=== PATIENT | female | born 1945 | race Caucasian/White ===

== ENCOUNTER 2017-05-22 14:07 | Inpatient (IN) | payer OTHER ==
[~2017-05-22] VITALS: Ht 172.7 cm; Wt 85.9 kg
[~2017-05-22 14:07] MED LIST: ALBUAER2 INH; ASCA500 PO; ATV1 PO; HYDR-5688 PO; MULT-506 PO; PROM25TA9 PO
[2017-05-22] MEDS ORDERED: SODIUM CHLORIDE 0.9% 1000ML 1,000 ML IV STA (14:46)
[2017-05-22] MEDS ORDERED: GUAIFENESIN 600 MG TABCR PO STA (14:46)
[2017-05-22] MEDS ORDERED: ALBUT/IPRATROP 3MG/0.5MG NEB 3 ML VIAL INH ONE ×2 (15:00→16:30)
[2017-05-22] MEDS ORDERED: SODIUM CHLORIDE 0.65% NA SOLN 45 ML (OCEAN) ONE (15:00)
[2017-05-22 15:13] VITALS: PULSE 88; O2SAT 94
[2017-05-22 15:15] LABS: BASO % 0.2 %; BASO ABS # 0.01 K/uL (0-0.2); EOS % 1.4 %; EOS ABS # 0.07 K/uL (0-0.5); HEMATOCRIT 46.9 % (37-47); LYMPH ABS # 1.75 K/uL (1.2-3.4); MEAN CELL VOLUME 89.2 fL (80-100); MEAN CORPUSCULAR HEMOGLOBIN 30.4 pg (25-34); MEAN CORPUSCULAR HGB CONC 34.1 g/dl (32-36); MEAN PLATELET VOLUME 8.3 fL (7.4-10.4); MONO % 10.9 %; MONO ABS # 0.53 K/uL (0.11-0.59); NEUT % 51.5 %; PLATELET COUNT 214 K/uL (130-400); RED CELL DISTRIBUTION WIDTH SD 45.7 fL (36.4-46.3); WHITE BLOOD COUNT 4.86 K/uL (4.8-10.8)
[2017-05-22 15:31] LABS: ALBUMIN 3.1 gm/dl (3.4-5.0); ALT/SGPT 20 U/L (12-78); AST/SGOT 14 U/L (15-37); BLOOD UREA NITROGEN 8 mg/dl (7-18); CALCIUM 8.4 mg/dl (8.5-10.1); CARBON DIOXIDE 29 mmol/L (21-32); CREATININE 0.62 mg/dl (0.60-1.20); GLUCOSE 110 mg/dl (70-99); LIPASE 143 U/L (73-393); POTASSIUM 4.1 mmol/L (3.5-5.1); SODIUM 127 mmol/L (136-145)
[2017-05-22 15:36] LABS: ALKALINE PHOSPHATASE 62 U/L (45-117); TOTAL PROTEIN 6.6 gm/dl (6.4-8.2)
--- NOTE | 2017-05-22 15:42 | DIAGNOSTIC IMAGING REPORT ---
CHEST ONE VIEW PORTABLE HISTORY: Atypical CHEST PAIN COMPARISON: Chest 11/13/2014. FINDINGS: The heart is mildly enlarged. Bibasilar interstitial thickening. Mild emphysema. No pneumothorax. There is a new 8 mm nodule within the right upper lobe. IMPRESSION: 1. Mild bibasilar thickening. No new focal lung consolidations to suggest pneumonia. 2. The heart is mildly enlarged. 3. Emphysema. 4. A new 8 mm nodule within the right upper lobe. Follow-up nonemergent chest CT is recommended to exclude a pulmonary lesion. Electronically signed by: Christiano Rebollar M.D. 05/22/2017 3:41 PM Dictated Date/Time: 05/22/2017 3:37 PM
[2017-05-22 15:55] LABS: INFLUENZA B ANTIGEN Neg for Influ B (NEG)
--- NOTE | 2017-05-22 16:25 | EMERGENCY ROOM VISIT NOTE ---
History Report prepared by Chelsea: Samantha Welch Under the Supervision of: Dr. Mk Luna M.D. First contact with patient: 14:44 Chief Complaint: SHORTNESS OF BREATH Stated Complaint: CANT BREATH Nursing Triage Summary: c/o coughing up green yellow sputum since mon, felt like she was getting better and then today she feels worse, has a "weird feeling" in her chest but no c/o pain pt also states she has been having a sinus infection History of Present Illness The patient is a 72 year old female who presents to the Emergency Room with complaints of worsening shortness of breathing that began a few days ago, secondary to the patient having intermittent cough, congestion, and yellow/ green sputum for the last 2 months. The patient states that the intensity of her symptoms reduces when she is sitting up. She denies wearing oxygen at home, but notes she occasionally uses her nebulizer at home. The patient states that she has been nauseous. She reports a history of COPD. asthma, and hypertension. The patient denies taking water pills or blood thinners. She notes that she smokes a pack of cigarettes a day. Source of History: patient Onset: few days ago Position: other (respiratory ) Quality: other (shortness of breath) Timing: worsening Associated Symptoms: + cough Note: Associated symptoms include: congestion and yellow/green sputum. Review of Systems See HPI for pertinent positives and negatives. A total of ten systems were reviewed and were otherwise negative. Past Medical & Surgical Medical Problems: (1) Asthma (2) COPD (chronic obstructive pulmonary disease) (3) Hypertension (4) Hyponatremia (5) Hypoxia Family History Patient reports no known family medical history. No pertinent family history. Social History Smoking Status: Current Every Day Smoker Smokeless Tobacco Use: Unknown Drug Use: none Marital Status: Housing Status: lives with family Occupation Status: retired Current/Historical Medications Scheduled Losartan Potassium (Cozaar), 50 MG PO DAILY Allergies Coded Allergies: Adhesives (Verified Allergy, Unknown, ITCHY, 05/22/17) Penicillins (Verified Allergy, Unknown, HIVES IN MOUTH, 05/22/17) Tramadol (Verified Allergy, Unknown, RASH MOUTH,, 05/22/17) Oxycodone (Verified Adverse Reaction, Unknown, NAUSEA,ANGRY REACTION, 05/22) Physical Exam Vital Signs Date Time Temp Pulse Resp B/P (MAP) Pulse Ox O2 Delivery O2 Flow Rate FiO2 05/22/17 20:38 103 23 149/82 05/22/17 19:13 108 05/22/17 19:03 123 24 133/77 91 Nasal Cannula 2.0 05/22/17 17:43 100 20 90 Room Air Nebulizer 05/22/17 17:00 98 23 126/79 92 Nebulizer 05/22/17 16:59 100 18 89 Nasal Cannula 1.0 05/22/17 16:08 95 22 168/94 91 Nasal Cannula 2.0 05/22/17 15:29 87 23 161/114 97 Nebulizer 05/22/17 15:13 88 16 94 Nasal Cannula 2.0 05/22/17 14:36 101 05/22/17 14:33 88 Room Air 05/22/17 14:33 97 20 151/114 93 Nasal Cannula 2.0 05/22/17 14:33 92 Nasal Cannula 2.0 05/22/17 14:08 37.0 105 20 189/95 90 Room Air Physical Exam GENERAL: Awake, alert, uncomfortable-appearing, dyspneic, in no distress HENT: Dry mucous membranes. Normocephalic, atraumatic. Oropharynx unremarkable. EYES: Normal conjunctiva. Sclera non-icteric. NECK: Supple. No nuchal rigidity. FROM. No JVD. RESPIRATORY: Diminished breath sounds throughout with scattered wheezes. CARDIAC: Regular rate, normal rhythm. Extremities warm and well perfused. Pulses equal. ABDOMEN: Soft, non-distended. No tenderness to palpation. No rebound or guarding. No masses. RECTAL: Deferred. MUSCULOSKELETAL: Chest examination reveals no tenderness. The back is symmetrical on inspection without obvious abnormality. There is no CVA tenderness to palpation. No joint edema. LOWER EXTREMITIES: Calves are equal size bilaterally and non-tender. No edema. No discoloration. NEURO: Normal sensorium. No sensory or motor deficits noted. SKIN: No rash or jaundice noted. Medical Decision & Procedures ER Provider Diagnostic Interpretation: Radiology results as stated below per my review and radiologist interpretation: CHEST ONE VIEW PORTABLE HISTORY: Atypical CHEST PAIN COMPARISON: Chest 11/13/2014. FINDINGS: The heart is mildly enlarged. Bibasilar interstitial thickening. Mild emphysema. No pneumothorax. There is a new 8 mm nodule within the right upper lobe. IMPRESSION: 1. Mild bibasilar thickening. No new focal lung consolidations to suggest pneumonia. 2. The heart is mildly enlarged. 3. Emphysema. 4. A new 8 mm nodule within the right upper lobe. Follow-up nonemergent chest CT is recommended to exclude a pulmonary lesion. Electronically signed by: Christiano Rebollar M.D. 05/22/2017 3:41 PM Dictated Date/Time: 05/22/2017 3:37 PM (CHEST FOR PE) ANGIO WITH CT DOSE: 469.22 mGy.cm HISTORY: Chest pain dyspnea TECHNIQUE: Multiaxial CT images of the chest were performed following the intravenous administration of contrast to evaluate the pulmonary arteries. Maximal intensity projection images were also obtained. A dose lowering technique was utilized adhering to the principles of ALARA. COMPARISON STUDY: 12/05/2014 FINDINGS: There is a normal caliber thoracic aorta with no evidence for dissection. There is no evidence for pulmonary embolus. No pleural effusions. No pneumothorax. The liver and spleen are unremarkable. No mediastinal or hilar lymphadenopathy. Lungs demonstrate mild basilar atelectatic change. There is a 9 mm nodular density within the lingula and additional bilobed nodular density somewhat medial and posterior to the 9 mm nodule measuring 7 mm. Nodular density previously described at the anterior lingula is not appreciated currently. Moderate emphysematous changes present. Chronic parenchymal and pleural reactive changes slightly variable but overall is similar. No significant mediastinal or hilar adenopathy. IMPRESSION: 1. No evidence for pulmonary embolus. 2. Unchanging 9 mm nodular density in the lingula. 3. New 7 mm nodule medial and slightly posterior to the previous described nodule. 4. The remaining components of the study remain stable. 5. A six-month follow-up is suggested. The above report was generated using voice recognition software. It may contain grammatical, syntax or spelling errors. Electronically signed by: López Ramirez M.D. 05/22/2017 4:53 PM Dictated Date/Time: 05/22/2017 4:46 PM Laboratory Results 05/22/17 15:02 Red Blood Count 5.26, Mean Corpuscular Volume 89.2, Mean Corpuscular Hemoglobin 30.4, Mean Corpuscular Hemoglobin Concent 34.1, Mean Platelet Volume 8.3, Neutrophils (%) (Auto) 51.5, Lymphocytes (%) (Auto) 36.0, Monocytes (%) (Auto) 10.9, Eosinophils (%) (Auto) 1.4, Basophils (%) (Auto) 0.2, Neutrophils # (Auto ) 2.50, Lymphocytes # (Auto) 1.75, Monocytes # (Auto) 0.53, Eosinophils # (Auto ) 0.07, Basophils # (Auto) 0.01 05/22/17 15:02 Test 05/22/17 15:02 05/22/17 15:15 05/22/17 15:27 05/22/17 18:12 White Blood Count 4.86 K/uL (4.8-10.8) Red Blood Count 5.26 M/uL (4.2-5.4) Hemoglobin 16.0 g/dL (12.0-16.0) Hematocrit 46.9 % (37-47) Mean Corpuscular Volume 89.2 fL (80-100) Mean Corpuscular Hemoglobin 30.4 pg (25-34) Mean Corpuscular Hemoglobin Concent 34.1 g/dl (32-36) Platelet Count 214 K/uL (130-400) Mean Platelet Volume 8.3 fL (7.4-10.4) Neutrophils (%) (Auto) 51.5 % Lymphocytes (%) (Auto) 36.0 % Monocytes (%) (Auto) 10.9 % Eosinophils (%) (Auto) 1.4 % Basophils (%) (Auto) 0.2 % Neutrophils # (Auto) 2.50 K/uL (1.4-6.5) Lymphocytes # (Auto) 1.75 K/uL (1.2-3.4) Monocytes # (Auto) 0.53 K/uL (0.11-0.59) Eosinophils # (Auto) 0.07 K/uL (0-0.5) Basophils # (Auto) 0.01 K/uL (0-0.2) RDW Standard Deviation 45.7 fL (36.4-46.3) RDW Coefficient of Variation 14.0 % (11.5-14.5) Immature Granulocyte % (Auto) 0.0 % Immature Granulocyte # (Auto) 0.00 K/uL (0.00-0.02) Anion Gap 8.0 mmol/L (3-11) Est Creatinine Clear Calc Drug Dose 95.6 ml/min Estimated GFR () 105.1 Estimated GFR (Non- 90.7 BUN/Creatinine Ratio 13.0 (10-20) Osmolality 268 mOsm/kg (280-300) Calcium Level 8.4 mg/dl (8.5-10.1) Total Bilirubin 0.2 mg/dl (0.2-1) Direct Bilirubin < 0.1 mg/dl (0-0.2) Aspartate Amino Transf (AST/SGOT) 14 U/L (15-37) Alanine Aminotransferase (ALT/SGPT) 20 U/L (12-78) Alkaline Phosphatase 62 U/L (45-117) Troponin I < 0.015 ng/ml (0-0.045) Pro-B-Type Natriuretic Peptide 364 pg/ml (0-900) Total Protein 6.6 gm/dl (6.4-8.2) Albumin 3.1 gm/dl (3.4-5.0) Lipase 143 U/L (73-393) Influenza Type A (RT-PCR) Neg for Influ A (NEG) Influenza Type A Antigen Neg for Influ A (NEG) Influenza Type B Antigen Neg for Influ B (NEG) Influenza Type B (RT-PCR) Neg for Influ B (NEG) Venous Blood pH 7.36 (7.36-7.41) Venous Blood Partial Pressure CO2 59 mmHg (38.0-50.0) Venous Blood Partial Pressure O2 32 mmHg Venous Blood HCO3 33 mmol/L Venous Blood Oxygen Saturation < 60.0 % Venous Blood Base Excess 5.2 mEq/L Urine Osmolality 192 mOms/kg (500-800) Laboratory results reviewed by me Medications Administered Medications (Trade) Dose Ordered Sig/Remi Route Start Time Stop Time Status Last Admin Dose Admin Sodium Chloride 1,000 ml @ 999 mls/hr Q1H1M STAT IV 05/22/17 14:46 05/22/17 15:46 DC 05/22/17 14:46 999 MLS/HR Albuterol/ Ipratropium (Duoneb) 12 ml ONE ONCE INH 05/22/17 15:00 05/22/17 15:01 DC 05/22/17 15:13 12 ML Prednisone (PredniSONE TAB) 60 mg NOW STAT PO 05/22/17 14:46 05/22/17 14:52 DC 05/22/17 15:40 60 MG Sodium Chloride ([place] Nasal [place]) 2 sprays NOW ONCE NA 05/22/17 15:00 05/22/17 15:01 DC 05/22/17 16:14 2 SPRAYS Guaifenesin (Mucinex Contr Rel Tab) 600 mg NOW STAT PO 05/22/17 14:46 05/22/17 14:52 DC 05/22/17 15:40 600 MG Albuterol/ Ipratropium (Duoneb) 12 ml ONE ONCE INH 05/22/17 16:30 05/22/17 16:31 DC 05/22/17 16:59 12 ML Azithromycin (Zithromax Tab) 500 mg NOW STAT PO 05/22/17 18:51 05/22/17 18:53 DC 05/22/17 19:03 500 MG ECG Per My Interpretation Indication: SOB/dyspnea Rate (beats per minute): 88 Rhythm: sinus rhythm (with fusion complexes) Findings: no acute ischemic change, other (normal axis) ED Course 1446: The patient was evaluated in room B6. A complete history and physical exam was performed. 1617: I reevaluated the patient, who had improved air movement but was still tight. Will repeat nebulizer treatment and will order a CT scan to evaluate her low sodium. 1904: I discussed the patient with Dr. Joseph [facility] - he will evaluate the patient for further treatment. 1914: I reevaluated the patient, who was resting. I discussed some test findings. The patient verbalized complete agreement of the treatment plan. Medical Decision I reviewed the patient's past medical history, medications, and the nursing notes as described above. Differential diagnosis: Etiologies such as infections, reactive airway disease, pneumonia, pneumothorax , COPD, CHF, cardiac ischemia, pulmonary embolism, musculoskeletal, gastrointestinal, as well as others were entertained. The patient is a 72-year-old woman with a past medical history of COPD who presents emergency Department with worsening cough congestion per hpi. Arrival the patient is uncomfortable and dyspneic reporting the need to sit up to breathe, however in no acute distress, afebrile stable vital signs. On exam the patient has diminished breath sounds throughout with scattered wheezes and rhonchi. EKG unremarkable. Chest x-ray negative for pneumonia although a pulmonary nodule. WBC within normal limits. Sodium 127 and CO2 57 however without any recent diabetes for comparison. Serum and urine OSM. Given the patient's pulmonary nodule and hyponatremia in the setting of the patient smoking history CT PE was done to rule out malignancy as well as PE, and was negative for both. Patient reassessed after 2 hours of continuous nebs with improvement in her air movement however still appears mildly dyspneic sitting up in bed for comfort. Thus given the patient's persistent dyspnea as well as oxygen requirement which is different from her baseline will admit the patient for a COPD exacerbation. Will give azithromycin given her productive sputum. The case was discussed with Dr. Joseph, who will admit the patient for further management. Medication Reconcilliation Current Medication List: was personally reviewed by me Blood Pressure Screening Patient's blood pressure: Normal blood pressure Blood pressure disposition: Did not require urgent referral Consults Time Called: 1901 Consulting Physician: ANTHONY Cervantes Returned Call: 1904 I discussed the patient with ANTHONY Cervantes - he will evaluate the patient for further treatment. Impression Primary Impression: COPD exacerbation Scribe Attestation The scribe's documentation has been prepared under my direction and personally reviewed by me in its entirety. I confirm that the note above accurately reflects all work, treatment, procedures, and medical decision making performed by me. Departure Information Dispostion Being Evaluated By Hospitalist Referrals No Doctor, Assigned (PCP) Forms HOME CARE DOCUMENTATION FORM, IMPORTANT VISIT INFORMATION Patient Instructions My [facility]
--- NOTE | 2017-05-22 16:54 | DIAGNOSTIC IMAGING REPORT ---
(CHEST FOR PE) ANGIO WITH CT DOSE: 469.22 mGy.cm HISTORY: Chest pain dyspnea TECHNIQUE: Multiaxial CT images of the chest were performed following the intravenous administration of contrast to evaluate the pulmonary arteries. Maximal intensity projection images were also obtained. A dose lowering technique was utilized adhering to the principles of ALARA. COMPARISON STUDY: 12/05/2014 FINDINGS: There is a normal caliber thoracic aorta with no evidence for dissection. There is no evidence for pulmonary embolus. No pleural effusions. No pneumothorax. The liver and spleen are unremarkable. No mediastinal or hilar lymphadenopathy. Lungs demonstrate mild basilar atelectatic change. There is a 9 mm nodular density within the lingula and additional bilobed nodular density somewhat medial and posterior to the 9 mm nodule measuring 7 mm. Nodular density previously described at the anterior lingula is not appreciated currently. Moderate emphysematous changes present. Chronic parenchymal and pleural reactive changes slightly variable but overall is similar. No significant mediastinal or hilar adenopathy. IMPRESSION: 1. No evidence for pulmonary embolus. 2. Unchanging 9 mm nodular density in the lingula. 3. New 7 mm nodule medial and slightly posterior to the previous described nodule. 4. The remaining components of the study remain stable. 5. A six-month follow-up is suggested. The above report was generated using voice recognition software. It may contain grammatical, syntax or spelling errors. Electronically signed by: López Ramirez M.D. 05/22/2017 4:53 PM Dictated Date/Time: 05/22/2017 4:46 PM
[2017-05-22 16:59] VITALS: PULSE 100; O2SAT 89
[2017-05-22] MEDS ORDERED: LOSA50TA6 PO (16:59)
[2017-05-22 18:32] LABS: INFLUENZA A PCR Neg for Influ A (NEG); INFLUENZA B PCR Neg for Influ B (NEG)
[2017-05-22] MEDS ORDERED: AZITHROMYCIN 250 MG TAB PO STA (18:51)
[2017-05-22] MEDS ORDERED: ONDANSETRON INJ 2 MG/ML 2 ML VIAL IV PRN (19:45)
[2017-05-22] MEDS ORDERED: ACETAMINOPHEN 325 MG TAB PO PRN (19:45)
--- NOTE | 2017-05-22 19:48 | History and Physical ---
History & Physical Date & Time of Service: May 22, 2017 at 19:47 Chief Complaint: Cant Breath Primary Care Physician: No Doctor, Assigned History of Present Illness Source: patient, hospital records The patient is a 72-year-old female presents emergency department with worsening shortness of breath over the past few days. She has had an intermittent cough productive of yellow-green sputum, chest congestion and wheezing over the past 2 months. She has a nebulizer that she occasionally uses at home due to her history of COPD with asthma. She smokes 1 pack per day. She does have a history of back surgery, and has intermittently worsening back pain when her cough is severe. Past Medical/Surgical History Medical Problems: (1) Asthma Status: Chronic (2) COPD (chronic obstructive pulmonary disease) Status: Chronic (3) Hypertension Status: Chronic Family History Patient reports no known family medical history. Social History Smoking Status: Current Every Day Smoker Smokeless Tobacco Use: No Alcohol Use: none Drug Use: none Marital Status: Occupational Status: retired Immunizations History of Influenza Vaccine: Unknown History of Tetanus Vaccine?: Unknown History of Pneumococcal: Unknown History of Hepatitis B Vaccine: Unknown Multi-Drug Resistant Organisms History of MDRO: No Allergies Coded Allergies: Adhesives (Verified Allergy, Unknown, ITCHY, 05/22/17) Penicillins (Verified Allergy, Unknown, HIVES IN MOUTH, 05/22/17) Tramadol (Verified Allergy, Unknown, RASH MOUTH,, 05/22/17) Oxycodone (Verified Adverse Reaction, Unknown, NAUSEA,ANGRY REACTION, 05/22) Home Medications Scheduled Losartan Potassium (Cozaar), 50 MG PO DAILY Review of Systems The patient denies chest pain, palpitations, lower extremity swelling, sore throat, fevers, chills, sweats, vomiting, diarrhea , constipation, abdominal pain, pelvic pain, blood in urine or stool, dysuria, urinary frequency or urgency, lightheadedness , dizziness, headache, memory loss, loss of consciousness, rash, abnormal bruising or bleeding, imbalance, focal or generalized weakness, numbness or tingling in arms or legs, generalized arthralgias or myalgias, neck pain, or night sweats. The review of systems is otherwise negative other than for that already noted above, and at least 10 systems have been reviewed. Physical Exam Vital Signs Date Time Temp Pulse Resp B/P (MAP) Pulse Ox O2 Delivery O2 Flow Rate FiO2 05/22/17 19:13 108 05/22/17 19:03 123 24 133/77 91 Nasal Cannula 2.0 05/22/17 17:43 100 20 90 Room Air Nebulizer 05/22/17 17:00 98 23 126/79 92 Nebulizer 05/22/17 16:59 100 18 89 Nasal Cannula 1.0 05/22/17 16:08 95 22 168/94 91 Nasal Cannula 2.0 05/22/17 15:29 87 23 161/114 97 Nebulizer 05/22/17 15:13 88 16 94 Nasal Cannula 2.0 05/22/17 14:36 101 05/22/17 14:33 88 Room Air 05/22/17 14:33 97 20 151/114 93 Nasal Cannula 2.0 05/22/17 14:33 92 Nasal Cannula 2.0 05/22/17 14:08 37.0 105 20 189/95 90 Room Air The patient is awake, alert and oriented 3, well developed and well nourished, normocephalic and atraumatic, lying in bed and in no acute distress except during severe harsh cough. HEENT--PERRL, EOMI, mucous membranes and oropharynx dry. Neck--supple. No JVD. No bruits. Thyroid normal, trachea midline, no adenopathy. Heart--normal S1 and S2. No murmurs, rubs or gallops. Lungs--coarse sounds with wheezes bilaterally, no respiratory distress, no accessory muscle use. Abdomen--normal bowel sounds and soft. Nontender. Nondistended, no hernias or masses, no organomegaly. Extremities--no cyanosis or clubbing. No edema. There are good distal pulses b/ l. Dermatologic--normal skin turgor, normal color, no abnormal lymph nodes, no rash. Neurologic--cranial nerves II through XII grossly intact. Rheumatologic--normal range of motion. Psychiatric--normal affect. Diagnostics Laboratory Results Results Past 24 Hours Test 05/22/17 15:02 05/22/17 15:15 05/22/17 15:27 05/22/17 18:12 Range/Units White Blood Count 4.86 4.8-10.8 K/uL Red Blood Count 5.26 4.2-5.4 M/uL Hemoglobin 16.0 12.0-16.0 g/dL Hematocrit 46.9 37-47 % Mean Corpuscular Volume 89.2 80-100 fL Mean Corpuscular Hemoglobin 30.4 25-34 pg Mean Corpuscular Hemoglobin Concent 34.1 32-36 g/dl Platelet Count 214 130-400 K/uL Mean Platelet Volume 8.3 7.4-10.4 fL Neutrophils (%) (Auto) 51.5 % Lymphocytes (%) (Auto) 36.0 % Monocytes (%) (Auto) 10.9 % Eosinophils (%) (Auto) 1.4 % Basophils (%) (Auto) 0.2 % Neutrophils # (Auto) 2.50 1.4-6.5 K/uL Lymphocytes # (Auto) 1.75 1.2-3.4 K/uL Monocytes # (Auto) 0.53 0.11-0.59 K/uL Eosinophils # (Auto) 0.07 0-0.5 K/uL Basophils # (Auto) 0.01 0-0.2 K/uL RDW Standard Deviation 45.7 36.4-46.3 fL RDW Coefficient of Variation 14.0 11.5-14.5 % Immature Granulocyte % (Auto) 0.0 % Immature Granulocyte # (Auto) 0.00 0.00-0.02 K/uL Sodium Level 127 136-145 mmol/L Potassium Level 4.1 3.5-5.1 mmol/L Chloride Level 90 98-107 mmol/L Carbon Dioxide Level 29 21-32 mmol/L Anion Gap 8.0 3-11 mmol/L Blood Urea Nitrogen 8 7-18 mg/dl Creatinine 0.62 0.60-1.20 mg/dl Est Creatinine Clear Calc Drug Dose 95.6 ml/min Estimated GFR () 105.1 Estimated GFR (Non- 90.7 BUN/Creatinine Ratio 13.0 10-20 Random Glucose 110 70-99 mg/dl Osmolality 268 280-300 mOsm/kg Calcium Level 8.4 8.5-10.1 mg/dl Total Bilirubin 0.2 0.2-1 mg/dl Direct Bilirubin < 0.1 0-0.2 mg/dl Aspartate Amino Transf (AST/SGOT) 14 15-37 U/L Alanine Aminotransferase (ALT/SGPT) 20 12-78 U/L Alkaline Phosphatase 62 45-117 U/L Troponin I < 0.015 0-0.045 ng/ml Pro-B-Type Natriuretic Peptide 364 0-900 pg/ml Total Protein 6.6 6.4-8.2 gm/dl Albumin 3.1 3.4-5.0 gm/dl Lipase 143 73-393 U/L Influenza Type A (RT-PCR) Neg for Influ A NEG Influenza Type A Antigen Neg for Influ A NEG Influenza Type B Antigen Neg for Influ B NEG Influenza Type B (RT-PCR) Neg for Influ B NEG Venous Blood pH 7.36 7.36-7.41 Venous Blood Partial Pressure CO2 59 38.0-50.0 mmHg Venous Blood Partial Pressure O2 32 mmHg Venous Blood HCO3 33 mmol/L Venous Blood Oxygen Saturation < 60.0 % Venous Blood Base Excess 5.2 mEq/L Urine Osmolality 192 500-800 mOms/kg Diagnostic Radiology Patient Name: BUSHRA LARA Unit Number: [id number] Dictated: 05/22/171536 Transcribed: 05/22/171536 Pradama Printed Date/Time: [~ rep prt dt]/[~ rep prt tm] [~ rep ct labl] - [~ rep ct ivnm] [facility] [place] [address] Dictated: 05/22/171536 Transcribed: 05/22/171536 [employer] Printed Date/Time: [~ rep prt dt]/[~ rep prt tm] [~ rep ct labl] - [~ rep ct ivnm] CHEST ONE VIEW PORTABLE HISTORY: Atypical CHEST PAIN COMPARISON: Chest 11/13/2014. FINDINGS: The heart is mildly enlarged. Bibasilar interstitial thickening. Mild emphysema. No pneumothorax. There is a new 8 mm nodule within the right upper lobe. IMPRESSION: 1. Mild bibasilar thickening. No new focal lung consolidations to suggest pneumonia. 2. The heart is mildly enlarged. 3. Emphysema. 4. A new 8 mm nodule within the right upper lobe. Follow-up nonemergent chest CT is recommended to exclude a pulmonary lesion. Electronically signed by: Christiano Rebollar M.D. 05/22/2017 3:41 PM Dictated Date/Time: 05/22/2017 3:37 PM The status of this report is Signed. Draft = Not yet reviewed or approved by Radiologist. Signed = Reviewed and approved by Radiologist. <AttendingPhy></AttendingPhy> <FamilyPhy>Camron Araujo PA-C</FamilyPhy> < PrimaryPhy>No Doctor, Assigned</PrimaryPhy> <UnitNumber>[id number]</UnitNumber> <VisitNumber>[id number]</VisitNumber> <PatientName>BUSHRA LARA</ PatientName> <DateOfBirth>1945</DateOfBirth> <Location>C.EDB</Location> < ServiceDate>05/22/17</ServiceDate> <MNE>ESINDI</MNE> <OrderingPhy>Mk Luna M.D.</OrderingPhy> <OrderingPhyMNE>f rep ord dr carney</OrderingPhyMNE> <DictatingPhyMNE>f rep dict dr carney</DictatingPhyMNE> <CCListMNE>f rep ct mne</ CCListMNE> <AdmittingPhyMNE>f pt admit dr carney</AdmittingPhyMNE> <AttendingPhyMNE >f pt attend dr carney</AttendingPhyMNE> <ConsultingPhyMNE>f pt consult dr carney</ConsultingPhyMNE> <FamilyPhyMNE>f pt fam dr carney</FamilyPhyMNE> <OtherPhyMNE>f pt other dr carney</OtherPhyMNE> < PrimaryPhyMNE>f pt prim care dr carney</PrimaryPhyMNE> <ReferringPhyMNE>f pt referring dr carney</ReferringPhyMNE> Patient Name: BUSHRA LARA Unit Number: [id number] Dictated: 05/22/171645 Transcribed: 05/22/171645 MS Printed Date/Time: [~ rep prt dt]/[~ rep prt tm] [~ rep ct labl] - [~ rep ct ivnm] [facility] [place] [address] Dictated: 05/22/171645 Transcribed: 05/22/17 164 MS Printed Date/Time: [~ rep prt dt]/[~ rep prt tm] [~ rep ct labl] - [~ rep ct ivnm] [~ rep ct add3]] (CHEST FOR PE) ANGIO WITH CT DOSE: 469.22 mGy.cm HISTORY: Chest pain dyspnea TECHNIQUE: Multiaxial CT images of the chest were performed following the intravenous administration of contrast to evaluate the pulmonary arteries. Maximal intensity projection images were also obtained. A dose lowering technique was utilized adhering to the principles of ALARA. COMPARISON STUDY: 12/05/2014 FINDINGS: There is a normal caliber thoracic aorta with no evidence for dissection. There is no evidence for pulmonary embolus. No pleural effusions. No pneumothorax. The liver and spleen are unremarkable. No mediastinal or hilar lymphadenopathy. Lungs demonstrate mild basilar atelectatic change. There is a 9 mm nodular density within the lingula and additional bilobed nodular density somewhat medial and posterior to the 9 mm nodule measuring 7 mm. Nodular density previously described at the anterior lingula is not appreciated currently. Moderate emphysematous changes present. Chronic parenchymal and pleural reactive changes slightly variable but overall is similar. No significant mediastinal or hilar adenopathy. IMPRESSION: 1. No evidence for pulmonary embolus. 2. Unchanging 9 mm nodular density in the lingula. 3. New 7 mm nodule medial and slightly posterior to the previous described nodule. 4. The remaining components of the study remain stable. 5. A six-month follow-up is suggested. The above report was generated using voice recognition software. It may contain grammatical, syntax or spelling errors. Electronically signed by: López Ramirez M.D. 05/22/2017 4:53 PM Dictated Date/Time: 05/22/2017 4:46 PM The status of this report is Signed. Draft = Not yet reviewed or approved by Radiologist. Signed = Reviewed and approved by Radiologist. <AttendingPhy></AttendingPhy> <FamilyPhy>No Doctor, Assigned</FamilyPhy> < PrimaryPhy>No Doctor, Assigned</PrimaryPhy> <UnitNumber>[id number]</UnitNumber> <VisitNumber>[id number]</VisitNumber> <PatientName>BUSHRA LARA Madisyn</ PatientName> <DateOfBirth>1945</DateOfBirth> <Location>C.EDB</Location> < ServiceDate>05/22/17</ServiceDate> <MNE>ESINDI</MNE> <OrderingPhy>Mk Luna M.D.</OrderingPhy> <OrderingPhyMNE>f rep ord dr carney</OrderingPhyMNE> <DictatingPhyMNE>f rep dict dr carney</DictatingPhyMNE> <CCListMNE>f rep ct kennae</ CCListMNE> <AdmittingPhyMNE>f pt admit dr carney</AdmittingPhyMNE> <AttendingPhyMNE >f pt attend dr carney</AttendingPhyMNE> <ConsultingPhyMNE>f pt consult dr carney</ConsultingPhyMNE> <FamilyPhyMNE>f pt fam dr carney</FamilyPhyMNE> <OtherPhyMNE>f pt other dr carney</OtherPhyMNE> < PrimaryPhyMNE>f pt prim care dr carney</PrimaryPhyMNE> <ReferringPhyMNE>f pt referring dr carney</ReferringPhyMNE> EKG EKG shows NSR at 88 bpm, there are no acute ST-T changes Impression Assessment and Plan Acute on chronic bronchitis with hypoxia_ admit to telemetry due to associated sinus tachycardia Ceftriaxone 1 g IV daily Levofloxacin 500 mg IV every 24 hours Solu-Medrol 40 mg IV every 8 hours Guaifenesin extended release 600 mg by mouth twice a day Xopenex/Atovent nebs q6hwa and q2h prn Nasal cannula 2 L of oxygen titrating to keep pulse ox greater than or equal to 92%. Sputum Gram stain and culture Tessalon Perles 100 mg by mouth 3 times a day when necessary to somewhat decrease the intensity of the cough but not suppress it. Pulmonary nodules-- Old 9 mm nodular density in the lingula New 7 mm nodular density medial slightly posterior to the above nodule. Tobacco cessation Repeat CT in 6 months Consider enrollment into pulmonary nodule program Tobacco use disorder-- Counseling given/needed next Hypertension-- Continue losartan 50 mg daily Level of Care Telemetry Advanced Directives Existing Advance Directive: No Existing Living Will: No Existing Power of Audit Officer: No Resuscitation Status FULL RESUSCITATION VTE Prophylaxis VTE Risk Assessment Done? Y/N: Yes Risk Level: Low Given or contraindicated: SCD's Social Service Consult None Apply
[2017-05-22] MEDS ORDERED: LEVALBUTEROL/IPRATROPIUM NEB INH SCH (21:00)
[2017-05-22 22:17] VITALS: BP 156/87; PULSE 104; TEMP 37; O2SAT 92; Ht 172.7 cm; Wt 85.9 kg
[2017-05-22] MEDS ORDERED: CEFTRIAXONE SOD INJ 1 GM in DEXTROSE 5% ADD-VANTAGE 50ML 50 ML IV SCH (23:00)
[2017-05-22] MEDS: BENZONATATE 100MG CAP PO PRN (23:43)
[2017-05-22] MEDS: GUAIFENESIN 600 MG TABCR PO SCH (23:43)
[2017-05-23] VITALS (11 sets, daily range): BP systolic 151–186; BP diastolic 78–102; PULSE 84–106; TEMP 36.6–37.2; O2SAT 90–98
[2017-05-23] MEDS: LEVOFLOXACIN / D5W 500 MG in PREMIXED IN D5W 100 ML IV SCH (00:20)
[2017-05-23] MEDS: METHYLPREDNISOLONE IV 40 MG in SYRINGE 0 ML IV SCH ×3 (00:20→17:18)
[2017-05-23] MEDS: IPRATROPIUM BROMIDE NEB SOLN 0.02% 2.5 ML VIAL INH SCH ×4 (02:12→20:12)
[2017-05-23] MEDS: LEVALBUTEROL 1.25MG/0.5ML NEB INH SCH ×4 (02:12→20:12)
[2017-05-23] MEDS ORDERED: BENZONATATE 100MG CAP PO STA (04:52)
[2017-05-23] MEDS: BENZONATATE 100MG CAP PO PRN ×2 (04:57→21:21)
[2017-05-23] MEDS ORDERED: NURSING VERBAL MED ORDER ONE (05:00)
[2017-05-23] MEDS: NICOTINE 14 MG/24 HR TDSY TD SCH (06:14)
[2017-05-23 07:11] LABS: BASO % 0.1 %; BASO ABS # 0.01 K/uL (0-0.2); HEMATOCRIT 43.7 % (37-47); HEMOGLOBIN 15.1 g/dL (12.0-16.0); IG# 0.02 K/uL (0.00-0.02); LYMPH % 12.7 %; MEAN CELL VOLUME 88.6 fL (80-100); MEAN CORPUSCULAR HEMOGLOBIN 30.6 pg (25-34); MEAN CORPUSCULAR HGB CONC 34.6 g/dl (32-36); MEAN PLATELET VOLUME 8.5 fL (7.4-10.4); MONO % 2.5 %; MONO ABS # 0.18 K/uL (0.11-0.59); NEUT % 84.4 %; NEUT ABS # 5.98 K/uL (1.4-6.5); PLATELET COUNT 244 K/uL (130-400); RED CELL DISTRIBUTION WIDTH CV 14.1 % (11.5-14.5); RED CELL DISTRIBUTION WIDTH SD 45.7 fL (36.4-46.3); WHITE BLOOD COUNT 7.09 K/uL (4.8-10.8)
[2017-05-23 07:44] LABS: CALCIUM 8.5 mg/dl (8.5-10.1); CREATININE 0.66 mg/dl (0.60-1.20); POTASSIUM 4.4 mmol/L (3.5-5.1)
[2017-05-23] MEDS: GUAIFENESIN 600 MG TABCR PO SCH ×2 (08:04→21:19)
[2017-05-23] MEDS: LOSARTAN POTASSIUM 50 MG TAB PO SCH (08:04)
--- NOTE | 2017-05-23 13:21 | Hospitalist Progress Note ---
Hospitalist Progress Note Date of Service May 23, 2017. (Arabella Hogue PA-C) Subjective Pt evaluation today including: conversation w/ patient, physical exam, chart review, lab review, review of studies, review of inpatient medication list Patient seen and evaluated. No acute events overnight. Some sinus tachy but mostly NSR on monitor Reporting poor sleep due to coughing spells. Intermittently productive but largely dry. States she feels a little hyper on breathing treatments and steroids but voices no other complaints. Constitutional: No fever, No chills Respiratory: + cough, + sputum, + shortness of breath, No wheezing Cardiovascular: No chest pain Abdomen: No pain, No nausea, No vomiting, No diarrhea, No constipation Musculoskeletal: No swelling, No calf pain Female : No dysuria Heme: No abnormal bleeding/bruising Skin: + rash (Arabella Hogue, CEFERINOC) Medications Current Inpatient Medications Medications (Trade) Dose Ordered Sig/Remi Route Start Time Stop Time Status Last Admin Dose Admin Acetaminophen (Tylenol Tab) 650 mg Q4H PRN PO 05/22/17 19:45 06/21/17 19:44 Losartan Potassium (coZAAR TAB) 50 mg DAILY PO 05/23/17 09:00 06/22/17 08:59 05/23/17 08:04 50 MG Ondansetron HCl (Zofran Inj) 4 mg Q6H PRN IV 05/22/17 19:45 06/21/17 19:44 Methylprednisolone Sodium Succinate 40 mg/Syringe 0.64 ml @ 1.5 mls/min Q8H IV 05/23/17 00:00 06/22/17 00:00 05/23/17 08:04 1.5 MLS/MIN Levofloxacin 500 mg/Prmx 100 ml @ 100 mls/hr Q24H IV 05/23/17 00:00 05/30/17 00:00 05/23/17 00:20 100 MLS/HR Benzonatate (Tessalon Perles Cap) 100 mg TID PRN PO 05/22/17 21:00 06/21/17 20:59 05/22/17 23:43 100 MG Ipratropium [place] (Atrovent 0.02% 0.5MG/2.5ML Neb) 0.5 mg Q6R INH 05/23/17 03:00 06/22/17 02:59 05/23/17 06:58 0.5 MG Levalbuterol (Xopenex 1.25MG/ 0.5ML Neb) 1.25 mg Q6R INH 05/23/17 03:00 06/22/17 02:59 05/23/17 06:58 1.25 MG Nicotine (Nicoderm Cq 14MG Patch) 1 patch QAM TD 05/23/17 09:00 06/22/17 08:59 05/23/17 06:14 1 PATCH Miscellaneous (Remove Nicoderm Patch) 1 ea HS N/A 05/23/17 21:00 06/22/17 20:59 Guaifenesin (Mucinex Contr Rel Tab) 1,200 mg Q12 PO 05/23/17 21:00 06/21/17 22:14 UNV Heparin Sodium (Porcine) (Heparin Sq 5000 Unit/0.5ml) 5,000 unit Q8 SQ 05/23/17 14:00 06/22/17 13:59 UNV (Arabella Hogue, CEFERINOC) Objective Vital Signs Date Time Temp Pulse Resp B/P (MAP) Pulse Ox O2 Delivery O2 Flow Rate FiO2 05/23/17 12:00 Nasal Cannula 2.0 05/23/17 11:50 37.2 106 18 186/99 (128) 91 Room Air 05/23/17 08:00 Nasal Cannula 2.0 05/23/17 07:30 36.8 98 18 174/96 (122) 93 05/23/17 06:59 101 18 95 Nasal Cannula 3.0 05/23/17 04:07 36.9 100 20 158/87 (110) 90 Nasal Cannula 3.0 05/23/17 04:00 Nasal Cannula 2.0 05/23/17 02:12 84 18 98 Nasal Cannula 3.0 05/23/17 00:05 37.0 99 20 151/78 (102) 92 Nasal Cannula 2.0 05/23/17 00:00 Nasal Cannula 2.0 05/22/17 22:17 37.0 104 20 156/87 Nasal Cannula 2.0 05/22/17 22:17 37.0 104 20 156/87 (110) 92 Nasal Cannula 2.0 05/22/17 22:03 100 22 141/75 92 05/22/17 20:38 103 23 149/82 05/22/17 19:13 108 05/22/17 19:03 123 24 133/77 91 Nasal Cannula 2.0 05/22/17 17:43 100 20 90 Room Air Nebulizer 05/22/17 17:00 98 23 126/79 92 Nebulizer 05/22/17 16:59 100 18 89 Nasal Cannula 1.0 05/22/17 16:08 95 22 168/94 91 Nasal Cannula 2.0 05/22/17 15:29 87 23 161/114 97 Nebulizer 05/22/17 15:13 88 16 94 Nasal Cannula 2.0 05/22/17 14:36 101 05/22/17 14:33 88 Room Air 05/22/17 14:33 97 20 151/114 93 Nasal Cannula 2.0 05/22/17 14:33 92 Nasal Cannula 2.0 05/22/17 14:08 37.0 105 20 189/95 90 Room Air (Arabella Hogue, PA-C) Physical Exam General Appearance: WD/WN, no apparent distress Eyes: sclerae normal ENT: hearing grossly normal Neck: supple, no JVD, trachea midline Respiratory/Chest: no respiratory distress, no accessory muscle use, + rhonchi (bases b/l to about mid-lung), + pertinent finding (diminished at bases b/l but good air flow from mid-lung to apices) Cardiovascular: regular rate, rhythm, no gallop, no murmur Abdomen: normal bowel sounds, non tender, soft Extremities: no pedal edema Neurologic/Psychiatric: alert, oriented x 3 Skin: normal color, warm/dry (Arabella Hogue, PA-C) Laboratory Results Last 24 Hours Test 05/22/17 15:02 05/22/17 15:15 05/22/17 15:27 05/22/17 18:12 White Blood Count 4.86 K/uL Red Blood Count 5.26 M/uL Hemoglobin 16.0 g/dL Hematocrit 46.9 % Mean Corpuscular Volume 89.2 fL Mean Corpuscular Hemoglobin 30.4 pg Mean Corpuscular Hemoglobin Concent 34.1 g/dl Platelet Count 214 K/uL Mean Platelet Volume 8.3 fL Neutrophils (%) (Auto) 51.5 % Lymphocytes (%) (Auto) 36.0 % Monocytes (%) (Auto) 10.9 % Eosinophils (%) (Auto) 1.4 % Basophils (%) (Auto) 0.2 % Neutrophils # (Auto) 2.50 K/uL Lymphocytes # (Auto) 1.75 K/uL Monocytes # (Auto) 0.53 K/uL Eosinophils # (Auto) 0.07 K/uL Basophils # (Auto) 0.01 K/uL RDW Standard Deviation 45.7 fL RDW Coefficient of Variation 14.0 % Immature Granulocyte % (Auto) 0.0 % Immature Granulocyte # (Auto) 0.00 K/uL Sodium Level 127 mmol/L Potassium Level 4.1 mmol/L Chloride Level 90 mmol/L Carbon Dioxide Level 29 mmol/L Anion Gap 8.0 mmol/L Blood Urea Nitrogen 8 mg/dl Creatinine 0.62 mg/dl Est Creatinine Clear Calc Drug Dose 95.6 ml/min Estimated GFR () 105.1 Estimated GFR (Non- 90.7 BUN/Creatinine Ratio 13.0 Random Glucose 110 mg/dl Osmolality 268 mOsm/kg Calcium Level 8.4 mg/dl Total Bilirubin 0.2 mg/dl Direct Bilirubin < 0.1 mg/dl Aspartate Amino Transf (AST/SGOT) 14 U/L Alanine Aminotransferase (ALT/SGPT) 20 U/L Alkaline Phosphatase 62 U/L Troponin I < 0.015 ng/ml Pro-B-Type Natriuretic Peptide 364 pg/ml Total Protein 6.6 gm/dl Albumin 3.1 gm/dl Lipase 143 U/L Influenza Type A (RT-PCR) Neg for Influ A Influenza Type A Antigen Neg for Influ A Influenza Type B Antigen Neg for Influ B Influenza Type B (RT-PCR) Neg for Influ B Venous Blood pH 7.36 Venous Blood Partial Pressure CO2 59 mmHg Venous Blood Partial Pressure O2 32 mmHg Venous Blood HCO3 33 mmol/L Venous Blood Oxygen Saturation < 60.0 % Venous Blood Base Excess 5.2 mEq/L Urine Osmolality 192 mOms/kg Test 05/23/17 06:35 White Blood Count 7.09 K/uL Red Blood Count 4.93 M/uL Hemoglobin 15.1 g/dL Hematocrit 43.7 % Mean Corpuscular Volume 88.6 fL Mean Corpuscular Hemoglobin 30.6 pg Mean Corpuscular Hemoglobin Concent 34.6 g/dl Platelet Count 244 K/uL Mean Platelet Volume 8.5 fL Neutrophils (%) (Auto) 84.4 % Lymphocytes (%) (Auto) 12.7 % Monocytes (%) (Auto) 2.5 % Eosinophils (%) (Auto) 0.0 % Basophils (%) (Auto) 0.1 % Neutrophils # (Auto) 5.98 K/uL Lymphocytes # (Auto) 0.90 K/uL Monocytes # (Auto) 0.18 K/uL Eosinophils # (Auto) 0.00 K/uL Basophils # (Auto) 0.01 K/uL RDW Standard Deviation 45.7 fL RDW Coefficient of Variation 14.1 % Immature Granulocyte % (Auto) 0.3 % Immature Granulocyte # (Auto) 0.02 K/uL Sodium Level 126 mmol/L Potassium Level 4.4 mmol/L Chloride Level 92 mmol/L Carbon Dioxide Level 26 mmol/L Anion Gap 8.0 mmol/L Blood Urea Nitrogen 8 mg/dl Creatinine 0.66 mg/dl Est Creatinine Clear Calc Drug Dose 89.7 ml/min Estimated GFR () 103.0 Estimated GFR (Non- 88.9 BUN/Creatinine Ratio 12.1 Random Glucose 148 mg/dl Calcium Level 8.5 mg/dl Magnesium Level 1.8 mg/dl (Arabella Hogue, PA-C) Assessment and Plan Acute on Chronic Respiratory Failure with Hypoxia 2/2 COPD Exacerbation: - Continue Methylprednisolone 40 mg IV Q8H and pending improvement possible taper tomorrow - Levofloxacin 500 mg IV daily - Continue Tessalon perles TID; Mucinex 1200 BID; Nasal spray - Xopenex/Atrovent nebulizers Sinusitis: - Levofloxacin would cover - continue nasal spray for symptomatic relief Hyponatremia: - Low serum and urine osm - will obtain random urine Na; appears euvolemic on exam - Will fluid restriction as SIADH possible and she did not have a response with IVF HTN: Variable - Losartan 50 mg daily Pulmonary Nodules: - Stable 9 mm nodule and new 7 mm nodule - recommending F/U 6 month F/U scan - Recommend Lung Nodule Program - is a current smoker which places her higher risk Tobacco Use: - Continue to encourage cessation; continue Nicotine patch daily Code Status: FULL RESUSCITATION DVT Prophylaxis: Heparin 5000 units SC Q8H Disposition: - Wean O2 as tolerated to maintain O2 > 90% will monitor today; Suitable for medical floor Continued [facility] stay due to: multiple IV medications needed Discharge planning: home (Arabella Hogue, MARLIN) Reviewed: Pt Seen/Exam by Me (Magaly Call MD) History Physician Professional Nursing Assistant Supervision Note: I interviewed and examined the patient. Discussed with PAMELA Hogue and agree with findings and plan as documented in the note. Any exceptions or clarifications are listed here: Pt feeling better, remains on 2LNC. Cough is improved, not SOB. SHe is starting to contemplate smoking cessation. 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 Has new Pulm nodule that needs to be followed SIADH-could be from pulm process vs malignancy worst case scenario--> fluid restrict and see if improves OYEAPT-[id number] steroids and taper down, Levaquin x 7 day course for acute bronchitis/COPD, bronchodilators. -should f/u with Pulm as outpt and have formal PFTs -may need to be on SYmbicort or SPiriva Documented By: Magaly Call (Magaly Call MD)
[2017-05-23 14:36] LABS: SODIUM RANDOM URINE 104 mEq/L
[2017-05-23 14:42] LABS: OSMOLALITY,URINE 492 mOms/kg (500-800)
[2017-05-23 14:48] LABS: INR 0.9 (0.9-1.1); PTT PATIENT 24.8 SECONDS (21.0-31.0)
[2017-05-23 17:02] LABS: CALCIUM 8.6 mg/dl (8.5-10.1); CREATININE 0.81 mg/dl (0.60-1.20); POTASSIUM 4.6 mmol/L (3.5-5.1)
[2017-05-23] MEDS: HEPARIN SOD 5000 UNIT/0.5 ML CARP SQ SCH (21:23)
[2017-05-24] VITALS (10 sets, daily range): BP systolic 164–184; BP diastolic 94–111; PULSE 71–103; TEMP 36.7–37; O2SAT 90–97
[2017-05-24] MEDS: METHYLPREDNISOLONE IV 40 MG in SYRINGE 0 ML IV SCH ×3 (00:35→16:31)
[2017-05-24] MEDS: LEVOFLOXACIN / D5W 500 MG in PREMIXED IN D5W 100 ML IV SCH ×2 (00:35→23:54)
[2017-05-24] MEDS: IPRATROPIUM BROMIDE NEB SOLN 0.02% 2.5 ML VIAL INH SCH ×4 (02:03→19:34)
[2017-05-24] MEDS: LEVALBUTEROL 1.25MG/0.5ML NEB INH SCH ×4 (02:03→19:34)
[2017-05-24] MEDS: HEPARIN SOD 5000 UNIT/0.5 ML CARP SQ SCH ×3 (06:00→21:03)
[2017-05-24] MEDS: LOSARTAN POTASSIUM 50 MG TAB PO SCH ×2 (07:45→18:14)
[2017-05-24] MEDS: GUAIFENESIN 600 MG TABCR PO SCH ×2 (07:45→21:00)
[2017-05-24] MEDS: NICOTINE 14 MG/24 HR TDSY TD SCH (07:45)
[2017-05-24 08:27] LABS: BASO % 0.1 %; BASO ABS # 0.01 K/uL (0-0.2); HEMATOCRIT 44.6 % (37-47); HEMOGLOBIN 15.6 g/dL (12.0-16.0); IG# 0.01 K/uL (0.00-0.02); LYMPH ABS # 1.21 K/uL (1.2-3.4); MEAN CELL VOLUME 88.1 fL (80-100); MEAN CORPUSCULAR HEMOGLOBIN 30.8 pg (25-34); MEAN PLATELET VOLUME 8.5 fL (7.4-10.4); MONO % 5.8 %; MONO ABS # 0.54 K/uL (0.11-0.59); NEUT ABS # 7.56 K/uL (1.4-6.5); PLATELET COUNT 232 K/uL (130-400); RED CELL DISTRIBUTION WIDTH CV 14.1 % (11.5-14.5); RED CELL DISTRIBUTION WIDTH SD 45.4 fL (36.4-46.3); WHITE BLOOD COUNT 9.33 K/uL (4.8-10.8)
[2017-05-24 09:07] LABS: CREATININE 0.84 mg/dl (0.60-1.20); POTASSIUM 4.5 mmol/L (3.5-5.1)
[2017-05-24] MEDS ORDERED: SODIUM CHLORIDE 1 GM TAB PO ONE (16:45)
--- NOTE | 2017-05-24 20:51 | Hospitalist Progress Note ---
Hospitalist Progress Note Date of Service May 24, 2017. (Arabella Hogue PA-C) Subjective Pt evaluation today including: conversation w/ patient, physical exam, chart review, lab review, review of studies, review of inpatient medication list Patient seen and evaluated. No acute events overnight. Reporting cough is getting better. Still largely unproductive but coughing attacks occurring less frequently. Generally tight airways but improving and no wheezing heard during exam. Still on supplemental O2 and will continue to wean. Constitutional: No fever, No chills ENT: + nasal symptoms, No sore throat Respiratory: + cough, + dyspnea on exertion, No sputum, No dyspnea at rest Cardiovascular: No chest pain Abdomen: No pain, No nausea, No vomiting, No diarrhea, No constipation Musculoskeletal: No swelling, No calf pain Female : No dysuria Skin: No rash (Arabella Hogue, CEFERINOC) Medications Current Inpatient Medications Medications (Trade) Dose Ordered Sig/Remi Route Start Time Stop Time Status Last Admin Dose Admin Acetaminophen (Tylenol Tab) 650 mg Q4H PRN PO 05/22/17 19:45 06/21/17 19:44 Ondansetron HCl (Zofran Inj) 4 mg Q6H PRN IV 05/22/17 19:45 06/21/17 19:44 Methylprednisolone Sodium Succinate 40 mg/Syringe 0.64 ml @ 1.5 mls/min Q8H IV 05/23/17 00:00 06/22/17 00:00 05/24/17 16:31 1.5 MLS/MIN Levofloxacin 500 mg/Prmx 100 ml @ 100 mls/hr Q24H IV 05/23/17 00:00 05/30/17 00:00 05/24/17 00:35 100 MLS/HR Benzonatate (Tessalon Perles Cap) 100 mg TID PRN PO 05/22/17 21:00 06/21/17 20:59 05/23/17 21:21 100 MG Ipratropium [place] (Atrovent 0.02% 0.5MG/2.5ML Neb) 0.5 mg Q6R INH 05/23/17 03:00 06/22/17 02:59 05/24/17 19:34 0.5 MG Levalbuterol (Xopenex 1.25MG/ 0.5ML Neb) 1.25 mg Q6R INH 05/23/17 03:00 06/22/17 02:59 05/24/17 19:34 1.25 MG Nicotine (Nicoderm Cq 14MG Patch) 1 patch QAM TD 05/23/17 09:00 06/22/17 08:59 05/24/17 07:45 1 PATCH Miscellaneous (Remove Nicoderm Patch) 1 ea HS N/A 05/23/17 21:00 06/22/17 20:59 05/23/17 21:20 1 EA Guaifenesin (Mucinex Contr Rel Tab) 1,200 mg Q12 PO 05/23/17 21:00 06/21/17 22:14 05/24/17 07:45 1,200 MG Heparin Sodium (Porcine) (Heparin Sq 5000 Unit/0.5ml) 5,000 unit Q8 SQ 05/23/17 22:00 06/22/17 21:59 Losartan Potassium (coZAAR TAB) 50 mg BID PO 05/24/17 20:00 06/22/17 08:59 05/24/17 18:14 50 MG Sodium Chloride (Sodium Chloride Tab) 1 gm DAILY PO 05/25/17 08:00 06/24/17 07:59 (Arabella Hogue, PAPauletteC) Objective Vital Signs Date Time Temp Pulse Resp B/P (MAP) Pulse Ox O2 Delivery O2 Flow Rate FiO2 05/24/17 19:34 100 16 90 Nasal Cannula 2.0 05/24/17 16:00 90 Nasal Cannula 2.0 05/24/17 15:00 37.0 93 20 169/94 (119) 90 Nasal Cannula 2.0 182/110 (134) 05/24/17 14:04 89 16 91 Nasal Cannula 2.0 05/24/17 08:00 Nasal Cannula 2.0 05/24/17 07:56 91 Nasal Cannula 2.0 05/24/17 07:47 36.7 101 16 184/108 (133) 91 Nasal Cannula 2.0 05/24/17 07:32 71 16 95 Nasal Cannula 2.0 05/24/17 02:03 103 16 97 Nasal Cannula 3.0 05/24/17 00:00 Nasal Cannula 2.0 05/23/17 23:05 37.0 93 18 159/102 (121) 93 Nasal Cannula 2.0 (Arabella Hogue, CEFERINOC) Physical Exam General Appearance: WD/WN, no apparent distress Eyes: sclerae normal ENT: hearing grossly normal Neck: supple, no JVD, trachea midline Respiratory/Chest: lungs clear, no respiratory distress, no accessory muscle use Cardiovascular: regular rate, rhythm, no gallop, no murmur Abdomen: normal bowel sounds, non tender, soft Extremities: no pedal edema Neurologic/Psychiatric: alert, oriented x 3 Skin: normal color (Arabella Hogue, CEFERINOC) Laboratory Results Last 24 Hours Test 05/24/17 08:10 White Blood Count 9.33 K/uL Red Blood Count 5.06 M/uL Hemoglobin 15.6 g/dL Hematocrit 44.6 % Mean Corpuscular Volume 88.1 fL Mean Corpuscular Hemoglobin 30.8 pg Mean Corpuscular Hemoglobin Concent 35.0 g/dl Platelet Count 232 K/uL Mean Platelet Volume 8.5 fL Neutrophils (%) (Auto) 81.0 % Lymphocytes (%) (Auto) 13.0 % Monocytes (%) (Auto) 5.8 % Eosinophils (%) (Auto) 0.0 % Basophils (%) (Auto) 0.1 % Neutrophils # (Auto) 7.56 K/uL Lymphocytes # (Auto) 1.21 K/uL Monocytes # (Auto) 0.54 K/uL Eosinophils # (Auto) 0.00 K/uL Basophils # (Auto) 0.01 K/uL RDW Standard Deviation 45.4 fL RDW Coefficient of Variation 14.1 % Immature Granulocyte % (Auto) 0.1 % Immature Granulocyte # (Auto) 0.01 K/uL Sodium Level 127 mmol/L Potassium Level 4.5 mmol/L Chloride Level 91 mmol/L Carbon Dioxide Level 28 mmol/L Anion Gap 8.0 mmol/L Blood Urea Nitrogen 14 mg/dl Creatinine 0.84 mg/dl Est Creatinine Clear Calc Drug Dose 70.5 ml/min Estimated GFR () 81.0 Estimated GFR (Non- 69.9 BUN/Creatinine Ratio 16.1 Random Glucose 150 mg/dl Calcium Level 9.0 mg/dl Magnesium Level 2.0 mg/dl Thyroid Stimulating Hormone (TSH) 0.691 uIu/ml Cortisol AM Sample 16.25 mcg/dl (Arabella Hogue, PA-C) Assessment and Plan Acute on Chronic Respiratory Failure with Hypoxia 2/2 COPD Exacerbation: IMPROVING - Change to Solu-Medrol 60 mg IV daily - Levofloxacin 500 mg IV daily - Continue Tessalon perles TID; Mucinex 1200 BID; Nasal spray - Xopenex/Atrovent nebulizers - Add flutter valve - states she feels like mucus is stuck in mid-chest but continues with non-productive cough Sinusitis: - Levofloxacin would cover - continue nasal spray for symptomatic relief 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 - Continue fluid restriction and at Na tablets of 1 g daily HTN: Variable - States she hasn't taken her prescribed anti-hypertensives in a few weeks - Losartan 50 mg BID Pulmonary Nodules: - Stable 9 mm nodule and new 7 mm nodule - recommending F/U 6 month F/U scan - Recommend Lung Nodule Program - is a current smoker which places her higher risk Tobacco Use: - Continue to encourage cessation; continue Nicotine patch daily Code Status: FULL RESUSCITATION DVT Prophylaxis: Heparin 5000 units SC Q8H Disposition: - Wean O2 as tolerated to maintain O2 > 90% will monitor today - possible D/C next 1-2 days Continued [facility] stay due to: abnormal vital signs Discharge planning: home (Arabella Hogue, PA-C) Attending Attestation: Pt seen/examined, chart reviewed, care plan d/w PAMELA Hogue. I agree w/ the pathak components of her documentation. Pt feels better but still with cough/dyspnea. No fever. No abd pain or chest pain. VSS BPs high however gen - nad neck - no JVD heart - RRR lungs - minimal end-exp wheeze, no rales abd - soft ext - no edema A/P: 1. COPD exacerbation - improving; wean steroids. Cont abx - can change these to PO. 2. acute hypoxic resp failure 2nd to #1 - improving; wean O2. 3. HTN - increase ARB to 50mg BID. 4. hyponatremia - suspicious for SIADH; fluid restrict to 1500cc/day and add NaCL tab 1gm daily. If no improvement w/ this then add lasix 20mg daily. 2nd to occult malignancy? 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
[2017-05-25] VITALS (12 sets, daily range): BP systolic 100–165; BP diastolic 63–107; PULSE 71–136; TEMP 36.8–37; O2SAT 81–97
[2017-05-25] MEDS: IPRATROPIUM BROMIDE NEB SOLN 0.02% 2.5 ML VIAL INH SCH ×4 (02:02→19:34)
[2017-05-25] MEDS: LEVALBUTEROL 1.25MG/0.5ML NEB INH SCH ×4 (02:02→19:34)
[2017-05-25] MEDS: HEPARIN SOD 5000 UNIT/0.5 ML CARP SQ SCH ×3 (06:00→21:08)
[2017-05-25 07:04] LABS: HEMATOCRIT 44.6 % (37-47); HEMOGLOBIN 15.3 g/dL (12.0-16.0); IG# 0.03 K/uL (0.00-0.02); LYMPH % 18.5 %; MEAN CELL VOLUME 88.1 fL (80-100); MEAN CORPUSCULAR HEMOGLOBIN 30.2 pg (25-34); MEAN CORPUSCULAR HGB CONC 34.3 g/dl (32-36); MEAN PLATELET VOLUME 8.2 fL (7.4-10.4); MONO % 9.1 %; MONO ABS # 0.99 K/uL (0.11-0.59); NEUT % 72.1 %; NEUT ABS # 7.82 K/uL (1.4-6.5); PLATELET COUNT 267 K/uL (130-400); RED CELL DISTRIBUTION WIDTH CV 14.2 % (11.5-14.5); RED CELL DISTRIBUTION WIDTH SD 45.4 fL (36.4-46.3); WHITE BLOOD COUNT 10.84 K/uL (4.8-10.8)
[2017-05-25 07:38] LABS: CALCIUM 8.6 mg/dl (8.5-10.1); CREATININE 0.75 mg/dl (0.60-1.20); POTASSIUM 4.4 mmol/L (3.5-5.1)
[2017-05-25] MEDS ORDERED: METHYLPREDNISOLONE IV 60 MG in SYRINGE 0 ML IV SCH (08:00)
[2017-05-25] MEDS: GUAIFENESIN 600 MG TABCR PO SCH ×2 (08:06→21:09)
[2017-05-25] MEDS: LOSARTAN POTASSIUM 50 MG TAB PO SCH ×2 (08:08→21:11)
[2017-05-25] MEDS: NICOTINE 14 MG/24 HR TDSY TD SCH (08:08)
[2017-05-25] MEDS: SODIUM CHLORIDE 1 GM TAB PO SCH (08:09)
[2017-05-25] MEDS ORDERED: ACETYLCYSTEINE 20% INHAL SOLN ***DISPENSED BY RESP. INH ONE (15:00)
--- NOTE | 2017-05-25 15:50 | Hospitalist Progress Note ---
Hospitalist Progress Note Date of Service May 25, 2017. (Arabella Hogue PA-C) Subjective Pt evaluation today including: conversation w/ patient, physical exam, chart review, lab review, review of studies, review of inpatient medication list Patient seen and evaluated. No acute events overnight. Coughing less but continues to feel like mucus is just stuck in her chest. Airways are clear and she is moving good air however is still 86% with some tachycardia when off O2. May possibly be from the nail pakistani on her finger? Will check with forehead probe. Will use Mucomyst nebs today and see if that helps her respiratory status. States she is established with Pulm but has not followed-up in awhile. Constitutional: No fever, No chills ENT: + nasal symptoms, No sore throat Respiratory: + cough, No sputum, No dyspnea on exertion, No dyspnea at rest Cardiovascular: No chest pain, No palpitations Abdomen: No pain, No nausea, No vomiting, No diarrhea, No constipation Musculoskeletal: No swelling, No calf pain Female : No dysuria Heme: No abnormal bleeding/bruising Skin: No rash (Arabella Hogue, CEFERINOC) Medications Current Inpatient Medications Medications (Trade) Dose Ordered Sig/Remi Route Start Time Stop Time Status Last Admin Dose Admin Acetaminophen (Tylenol Tab) 650 mg Q4H PRN PO 05/22/17 19:45 06/21/17 19:44 Ondansetron HCl (Zofran Inj) 4 mg Q6H PRN IV 05/22/17 19:45 06/21/17 19:44 Benzonatate (Tessalon Perles Cap) 100 mg TID PRN PO 05/22/17 21:00 06/21/17 20:59 05/23/17 21:21 100 MG Ipratropium [place] (Atrovent 0.02% 0.5MG/2.5ML Neb) 0.5 mg Q6R INH 05/23/17 03:00 06/22/17 02:59 05/25/17 14:07 0.5 MG Levalbuterol (Xopenex 1.25MG/ 0.5ML Neb) 1.25 mg Q6R INH 05/23/17 03:00 06/22/17 02:59 05/25/17 14:07 1.25 MG Nicotine (Nicoderm Cq 14MG Patch) 1 patch QAM TD 05/23/17 09:00 06/22/17 08:59 05/25/17 08:08 1 PATCH Miscellaneous (Remove Nicoderm Patch) 1 ea HS N/A 05/23/17 21:00 06/22/17 20:59 05/24/17 21:03 1 EA Guaifenesin (Mucinex Contr Rel Tab) 1,200 mg Q12 PO 05/23/17 21:00 06/21/17 22:14 05/25/17 08:06 1,200 MG Heparin Sodium (Porcine) (Heparin Sq 5000 Unit/0.5ml) 5,000 unit Q8 SQ 05/23/17 22:00 06/22/17 21:59 Losartan Potassium (coZAAR TAB) 50 mg BID PO 05/24/17 20:00 06/22/17 08:59 05/25/17 08:08 50 MG Sodium Chloride (Sodium Chloride Tab) 1 gm DAILY PO 05/25/17 08:00 06/24/17 07:59 05/25/17 08:09 1 GM Methylprednisolone Sodium Succinate 60 mg/Syringe 0.96 ml @ 1.5 mls/min DAILY IV 05/25/17 08:00 06/24/17 07:59 05/25/17 08:06 1.5 MLS/MIN Levofloxacin (Levaquin Tab) 500 mg DAILY@11 PO 05/26/17 11:00 05/29/17 11:01 Acetylcysteine (Mucomyst 20% Inh Soln) 3 ml BID INH 05/25/17 20:00 06/24/17 19:59 (Arabella Hogue, PA-C) Objective Vital Signs Date Time Temp Pulse Resp B/P (MAP) Pulse Ox O2 Delivery O2 Flow Rate FiO2 05/25/17 14:07 111 16 92 Nasal Cannula 2.0 05/25/17 11:56 94 Nasal Cannula 2.0 05/25/17 11:55 88 Room Air 05/25/17 09:54 Nasal Cannula 2.0 05/25/17 07:30 36.8 79 18 159/95 (116) 90 Nasal Cannula 2.0 05/25/17 07:22 71 16 92 Nasal Cannula 2.0 05/25/17 02:02 100 16 97 Nasal Cannula 2.0 05/24/17 23:54 99 164/99 (120) 05/24/17 23:10 36.7 97 18 176/111 (132) 91 Nasal Cannula 2.0 05/24/17 19:34 100 16 90 Nasal Cannula 2.0 05/24/17 16:00 90 Nasal Cannula 2.0 (Arabella Hogue PA-C) Physical Exam General Appearance: WD/WN, no apparent distress ENT: hearing grossly normal Neck: supple, no JVD, trachea midline Respiratory/Chest: lungs clear, normal breath sounds, no respiratory distress, no accessory muscle use Cardiovascular: regular rate, rhythm, no gallop, no murmur Abdomen: normal bowel sounds, non tender, soft Neurologic/Psychiatric: alert Skin: normal color, warm/dry (Arabella Hogue, PAMELA-C) Laboratory Results Last 24 Hours Test 05/25/17 06:32 White Blood Count 10.84 K/uL Red Blood Count 5.06 M/uL Hemoglobin 15.3 g/dL Hematocrit 44.6 % Mean Corpuscular Volume 88.1 fL Mean Corpuscular Hemoglobin 30.2 pg Mean Corpuscular Hemoglobin Concent 34.3 g/dl Platelet Count 267 K/uL Mean Platelet Volume 8.2 fL Neutrophils (%) (Auto) 72.1 % Lymphocytes (%) (Auto) 18.5 % Monocytes (%) (Auto) 9.1 % Eosinophils (%) (Auto) 0.0 % Basophils (%) (Auto) 0.0 % Neutrophils # (Auto) 7.82 K/uL Lymphocytes # (Auto) 2.00 K/uL Monocytes # (Auto) 0.99 K/uL Eosinophils # (Auto) 0.00 K/uL Basophils # (Auto) 0.00 K/uL RDW Standard Deviation 45.4 fL RDW Coefficient of Variation 14.2 % Immature Granulocyte % (Auto) 0.3 % Immature Granulocyte # (Auto) 0.03 K/uL Sodium Level 126 mmol/L Potassium Level 4.4 mmol/L Chloride Level 89 mmol/L Carbon Dioxide Level 31 mmol/L Anion Gap 6.0 mmol/L Blood Urea Nitrogen 17 mg/dl Creatinine 0.75 mg/dl Est Creatinine Clear Calc Drug Dose 78.9 ml/min Estimated GFR () 92.9 Estimated GFR (Non- 80.2 BUN/Creatinine Ratio 23.0 Random Glucose 107 mg/dl Calcium Level 8.6 mg/dl Magnesium Level 2.1 mg/dl (Arabella Hogue PAPauletteC) Assessment and Plan Acute on Chronic Respiratory Failure with Hypoxia 2/2 COPD Exacerbation: IMPROVING - Continue Solu-Medrol 60 mg IV daily - Levofloxacin 500 mg daily - Continue Tessalon perles TID; Mucinex 1200 BID; Nasal spray - Xopenex/Atrovent nebulizers and will add Mucinex BID - Continue pulmonary toilet Sinusitis: IMPROVING - Levofloxacin would cover - continue nasal spray for symptomatic relief 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 - Continue fluid restriction and add Na tablets of 1 g daily - she reports no knowledge of having low Na - appears largely asymptomatic - Not on any medications that could cause this - concern is for the pulmonary nodules HTN: - States she hasn't taken her prescribed anti-hypertensives in a few weeks - Losartan 50 mg BID (increased from once daily dose) Pulmonary Nodules: - Stable 9 mm nodule and new 7 mm nodule - recommending F/U 6 month F/U scan - Recommend Lung Nodule Program - is a current smoker which places her higher risk - States she is aware of her nodules - will have a CD of CTA for her to take to her [facility] Tobacco Use: - Continue to encourage cessation; continue Nicotine patch daily Code Status: FULL RESUSCITATION DVT Prophylaxis: Heparin 5000 units SC Q8H Disposition: - Likely need two step prior to D/C - will utilize Mucomyst and reassess as patient is tachy and at 86-87% on RA; Possible D/C tomorrow Continued [facility] stay due to: abnormal vital signs Discharge planning: home (Arabella Hogue PA-C) Attending Attestation: Pt seen/examined, chart reviewed, care plan d/w PAMELA Hogue. I agree w/ the pathak components of her documentation. During my AM visit she reported feeling well with minimal cough and no dyspnea walking to bathroom. Later in the afternoon the patient reported feeling dizzy and had tongue numbness; she was reassessed by Ms. Hogue at that time and it was felt to be due to high BP. BPs improved following IV hydralazine. VSS BPs labile gen - nad neck - no JVD heart - RRR lungs - no rales, no wheeze, good airation abd - soft ext - no edema A/P: 1. COPD exacerbation - improving; wean steroids once again. Cont abx x 7-10 days. May need 2-step prior to d/c. 2. acute hypoxic resp failure 2nd to #1 - improving; wean O2; may need 2-step prior to d/c. 3. HTN - labile, likely due to IV steroids; follow carefully; adjust meds as needed. 4. hyponatremia - suspicious for SIADH; fluid restrict to 1500cc/day and continue NaCL tab 1gm daily. If no improvement w/ this then add lasix 20mg daily. 2nd to occult malignancy? 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 tongue numbness - transient and now resolved; doubt TIA. Uncertain etiology. d/c tomorrow? Syed Winters MD (Syed Winters MD)
[2017-05-25] MEDS ORDERED: HydrALAZINE HCL 20 MG/ML VIAL IV. PRN (16:30)
[2017-05-25] MEDS ORDERED: IBUPROFEN 600 MG TAB PO PRN (16:45)
[2017-05-25] MEDS: BENZONATATE 100MG CAP PO PRN (21:08)
[2017-05-26] VITALS (10 sets, daily range): BP systolic 97–138; BP diastolic 57–95; PULSE 88–128; TEMP 36.6–36.9; O2SAT 84–94
[2017-05-26] MEDS: LEVALBUTEROL 1.25MG/0.5ML NEB INH SCH ×4 (02:08→19:43)
[2017-05-26] MEDS: IPRATROPIUM BROMIDE NEB SOLN 0.02% 2.5 ML VIAL INH SCH ×4 (02:08→19:43)
[2017-05-26] MEDS: HEPARIN SOD 5000 UNIT/0.5 ML CARP SQ SCH ×2 (05:36→14:00)
[2017-05-26] MEDS: ACETYLCYSTEINE 20% INHAL SOLN ***DISPENSED BY RESP. INH SCH ×2 (07:10→19:43)
[2017-05-26] MEDS: NICOTINE 14 MG/24 HR TDSY TD SCH (08:19)
[2017-05-26] MEDS: SODIUM CHLORIDE 1 GM TAB PO SCH (08:19)
[2017-05-26] MEDS: GUAIFENESIN 600 MG TABCR PO SCH (08:19)
[2017-05-26] MEDS: LOSARTAN POTASSIUM 50 MG TAB PO SCH (08:20)
[2017-05-26 08:33] LABS: CALCIUM 8.6 mg/dl (8.5-10.1); CREATININE 0.86 mg/dl (0.60-1.20); POTASSIUM 4.3 mmol/L (3.5-5.1)
[2017-05-26] MEDS ORDERED: LEVOFLOXACIN 500 MG TAB PO SCH (11:00)
[2017-05-26] MEDS ORDERED: IPRASOL4 INH (18:45)
[2017-05-26] MEDS ORDERED: SDMC1 PO (18:45)
[2017-05-26] MEDS ORDERED: ADVIN25/60 INH (18:45)
[2017-05-26] MEDS ORDERED: NICO14DI5 TD (18:45)
[2017-05-26] MEDS ORDERED: PRED10TA PO (18:45)
[2017-05-26] MEDS ORDERED: LVQ500 PO (18:45)
[2017-05-26] MEDS ORDERED: NEBMAC (18:45)
[2017-05-26] MEDS ORDERED: GFNSR600 PO (18:45)
[2017-05-26] MEDS ORDERED: OXGN (18:56)
--- NOTE | 2017-05-26 19:07 | Discharge Instructions ---
Discharge Instructions Date of Service May 26, 2017. Admission Reason for Admission: COPD exacerbation / bronchitis Discharge Discharge Diagnosis / Problem: 1. COPD exacerbation - improved. 2. Low sodium level - improved. Discharge Goals Goal(s): Learn about illness, Diagnostic testing, Therapeutic intervention Activity Recommendations Activity Limitations: resume your previous activity (as tolerated) . Instructions / Follow-Up Instructions / Follow-Up From Dr. Winters - 1. COPD exacerbation - please do the following: * take prednisone taper starting TOMORROW on 05/27/17; start with 4 tablets and taper down to 1 tablet then off. See instructions on bottle. * take levaquin (levofloxacin) 500mg once daily for 5 more days starting TOMORROW on 05/27/17; this is your antibiotic. * go to a medical supply store in [facility] and purchase a nebulizer machine. * the medication that goes into the nebulizer machine is called "duoneb" ( albuterol-ipratropium). * this medication can be obtained from [facility]. * duonebs can be used every 4 hours as needed for cough, wheeze or shortness of breath. * START advair 1 puff twice a day every day to PREVENT your COPD symptoms. Rinse mouth with water after use. * may purchase and use [id number] mucinex up to 1200mg twice a day for cough/congestion * while waiting to get your neb machine you can use your ventolin inhaler every 4 hours as needed for cough/wheeze 2. Oxygen - you need oxygen when doing activity. Use 2 liters when walking, leaving your home, doing household tasks, etc. You can remove the oxygen when sleeping as well as when you are relaxing in a chair, watching TV, etc. DO NOT SMOKE WHEN YOU HAVE OXYGEN. PEOPLE THAT VISIT YOU AT YOUR HOME SHOULD NOT SMOKE EITHER. YOU CAN CAUSE A FIRE IF YOU SMOKE WHILE USING OXYGEN. 3. Low sodium level - I believe that the cause of your low sodium problem is a condition called "SIADH." This is a condition where your body is holding on to too much water causing the sodium level to drop. The treatment of this condition requires that you - * RESTRICT your total daily fluid intake to no more than 1500cc (1.5 liters) of fluid each day * TAKE a salt tablet 1gm once daily; prescription provided for this The cause of the low sodium may be from one of the nodules in your lungs. Please see your lung specialist WILMER for this. On 05/28/17, please go to [facility] or the closest hospital to you for a blood draw. Be sure to take the prescription that I wrote with you to that blood draw. We are rechecking your sodium level. 4. Lung nodules - * an appointment has been set up for you to see your lung specialist in [place] * take the CD with you from [facility] so he can look at the nodules 5. Follow-up - see separate section for appointment dates/times. 6. Return to [facility] if - * you develop fever over 100.5 degrees * you develop worsening shortness of breath * you develop chest pain * your breathing is not responding to your albuterol/ventolin and other medications * any other concerns Current Hospital Diet Patient's current hospital diet: Regular Diet Discharge Diet Recommended Diet: Regular Diet Fluid Restriction: 1500 ml (6 cups) Procedures Procedures Performed: CAT scan of the lungs showing NO blood clots; NO pneumonia seen either. Multiple nodules seen. Pending Studies Studies pending at discharge: no Medical Emergencies . Who to Call and When: Medical Emergencies: If at any time you feel your situation is an emergency, please call 911 immediately. . Non-Emergent Contact Non-Emergency issues call your: Primary Care Provider Call Non-Emergent contact if: temperature is above 100.5, you have any medication questions . . "Provider Documentation" section prepared by Syed Winters. . VTE Core Measure Inpt VTE Proph given/why not?: SCD's
--- NOTE | 2017-06-02 09:41 | Discharge Summary ---
Discharge Summary Date of Service Jun 02, 2017. Discharge Summary Admission Date: May 22, 2017 at 20:52 Discharge Date: May 26, 2017 Discharge Disposition: Home Principal Diagnosis: COPD with exacerbation Problems/Secondary Diagnoses: 1. hyponatremia - likely due to SIADH 2. pulmonary nodules - chronic - followed by pulmonary in [place] 3. HTN 4. tobacco dependence 5. acute hypoxic respiratory failure - improved, but will need home O2 at discharge Immunizations: Have You Had Influenza Vaccine: Unknown History of Tetanus Vaccine?: Unknown History of Pneumococcal: Unknown History of Hepatitis B Vaccine: Unknown Procedures: 1. CTA chest - IMPRESSION: 1. No evidence for pulmonary embolus. 2. Unchanging 9 mm nodular density in the lingula. 3. New 7 mm nodule medial and slightly posterior to the previous described nodule. 4. The remaining components of the study remain stable. 5. A six-month follow-up is suggested. 2. oxygen 2-step test to determine if ambulatory O2 is needed (patient DOES need 2 L NC with activity only) Medication Reconciliation New Medications: Fluticasone Prop/Salmeterol (Advair Diskus 250/50 60 Dose) 1 Ea Aerp 1 PUFF INH BID, #1 INHALER 5 Refills rinse mouth with water after use Home O2 Therapy (Oxygen) Gas 2 LITERS NA with activity, #1 BTL Ipratropium-Albuterol (Duoneb) 3 Ml Nebu 1 TREATMENT INH Q4H PRN for cough/wheeze, #1 BOX 2 Refills Nebulizer Machine (Home Use) (Nebulizer Machine (Home Use) ) Mis EA N/A UD, #1 dx - COPD Prednisone Tab (Prednisone) 10 Mg Tab 10 MG PO DIRECTED, #21 TAB 0 Refills start 05/27/17: take 4 tabs day 1, 3 tabs days 2-4, 2 tabs days 5-7, 1 tab days 8-9, then stop. Guaifenesin Ext Rel (Mucinex Ext Rel) 600 Mg Tabcr 1200 MG PO Q12, #60 TAB 0 Refills can purchase [id number] Levofloxacin (Levofloxacin) 500 Mg Tab 500 MG PO DAILY for 5 Days, #5 TAB 0 Refills start 05/27/17 Nicotine (Nicoderm Cq 14MG Patch) 14 Mg/24 Hr Dis 1 PATCH TD QAM, #30 PATCH 0 Refills Sodium Chloride (Sodium Chloride) 1 Gm Tab 1 GM PO DAILY, #30 TAB 0 Refills Continued Medications: Losartan Potassium (Cozaar) 50 Mg Tab 50 MG PO DAILY 1/2 OF A 100 MG TABLET Discharge Exam Physical Exam: General Appearance: no apparent distress ENT: pharynx normal Neck: no JVD Respiratory/Chest: no respiratory distress, no accessory muscle use, + wheezing (b/l) Cardiovascular: no gallop, no murmur, normal peripheral pulses, + tachycardia Abdomen / GI: normal bowel sounds, non tender, soft, no organomegaly Extremities: no pedal edema Neurologic/Psychiatric: alert, oriented x 3 Hospital Course HISTORY OF PRESENT ILLNESS: The patient is a 72-year-old female who presented to the emergency department with worsening shortness of breath over the past few days. She had had an intermittent cough productive of yellow-green sputum, chest congestion and wheezing over the past 2 months. She reported ongoing tobacco use, smoking 1 pack per day of cigarettes. HOSPITAL COURSE: The patient was treated for her COPD exacerbation in the usual fashion with IV steroids, antibiotics, neb treatments, O2, and mucolytics. She made gradual improvement in all symptoms. Unfortunately we were unable to wean her oxygen off entirely. Formal 2-step oxygen test demonstrated the need for oxygen - 2 liters with ACTIVITY ONLY. She was strongly counseled to quit smoking and to never smoke or allow smoking in her home due to risk of house fire. At discharge she will complete a course of oral prednisone, levaquin, and was given a prescription for advair as she hadn't been taking a controller agent for quite some time. Additionally she was given prescriptions for a nebulizer machine and duonebs to use as needed. Her stay was complicated by hyponatremia and labile blood pressure. The hyponatremia was felt to be due to SIADH as her urine sodium was over 100 and her urine osm was nearly 500. She also appeared euvolemic. The exact cause of the hyponatremia was uncertain but with the pulmonary nodules it is concerning that one of these could be causing the SIADH. Follow-up with her assisted living nursing director was advised. Sodium at admission was 127 improving to 129 prior to discharge. She was asked to fluid restrict to 1500cc/day and to take a salt tablet 1gm daily. She will have her BMP repeated on 05/28/17. Her blood pressures were labile due to the use of IV steroids. Once the steroids were weaned her BPs returned to normal. The patient reported that she is followed by Dr. Madden in [place] for the pulmonary nodules. I didn't have a previous scan to compare the size of the nodules. We did provide a CD-ROM for the patient so that she could share her results with Dr. Madden at time of follow-up. Lastly, the patient had a very brief episode of tongue numbness during her stay , lasting just a few seconds. This was associated with lightheadedness and elevated blood pressure. The numbness was not felt to represent a TIA. The patient requested a referral for a new PCP and arrangements have been made for her to establish care at the [facility] office. Total Time Spent: Greater than 30 minutes This includes examination of the patient, discharge planning, medication reconciliation, and communication with other providers. Discharge Instructions Please refer to the electronic Patient Visit Report (Discharge Instructions) for additional information. Follow-Up 1. MondayJune 02 at 9:15 am - [facility] Office 2. Dr. Chadwick Madden, on MondayJune 06 at 10:30 am. 3. repeat BMP and uric acid level on 05/28/17 Additional Copies To Chadwick Madden
== END 2017-05-26 20:06 | disposition home or self-care (01) | DRG 643 ==
LOC: C.EDB 14:08 → C.2T 20:52 → ENRESERV 21:49 → C.MS4W 05-23 15:12
PROVIDERS: ADMIT Hospitalist; ATTEND Internal Medicine
DX: E22.2 Syndrome of inappropriate secretion of antidiuretic hormone (principal); J96.21 Acute and chronic respiratory failure with hypoxia; J44.0 Chronic obstructive pulmonary disease with (acute) lower respiratory infection; J44.1 Chronic obstructive pulmonary disease with (acute) exacerbation; J20.9 Acute bronchitis, unspecified; R91.8 Other nonspecific abnormal finding of lung field; R20.0 Anesthesia of skin; J32.9 Chronic sinusitis, unspecified; J45.909 Unspecified asthma, uncomplicated; I10 Essential (primary) hypertension; F17.210 Nicotine dependence, cigarettes, uncomplicated; Z79.899 Other long term (current) drug therapy; Z88.0 Allergy status to penicillin; Z88.5 Allergy status to narcotic agent; Z91.048 Other nonmedicinal substance allergy status

== ENCOUNTER → 2017-07-07 | Outpatient (CLI) | payer OTHER ==
[~2017-07-07] MED LIST changes: +ADVIN25/60 INH; -ALBUAER2 INH; -ASCA500 PO; -ATV1 PO; +GFNSR600 PO; -HYDR-5688 PO; +IPRASOL4 INH; +LOSA50TA6 PO; +LVQ500 PO; -MULT-506 PO; +NICO14DI5 TD; +OXGN; +PRED10TA PO; -PROM25TA9 PO; +SDMC1 PO
[2017-07-07 17:30] LABS: BLOOD UREA NITROGEN 10 mg/dl (7-18); CALCIUM 8.8 mg/dl (8.5-10.1); CARBON DIOXIDE 30 mmol/L (21-32); GLUCOSE 117 mg/dl (70-99); POTASSIUM 3.8 mmol/L (3.5-5.1); SODIUM 138 mmol/L (136-145)
== END | disposition home or self-care (01) ==
LOC: C.LABPBG 14:12
PROVIDERS: ATTEND Family Medicine
DX: E87.1 Hypo-osmolality and hyponatremia (principal); I10 Essential (primary) hypertension

== ENCOUNTER 2017-11-15 05:27 | Inpatient (IN) | payer OTHER ==
[2017-11-02 08:52] VITALS: BMI 31.0
[2017-11-03 08:44] VITALS: BMI 31.0
--- NOTE | 2017-11-03 09:10 | PAT Medication Instructions ---
Service Date Nov 03, 2017. Current Home Medication List Albuterol Hfa (Ventolin Hfa), 2-4 PUFFS INH Q6H PRN for Shortness of Breath Ascorbic Acid (Vitamin C), 1 TAB PO QAM Cholecalciferol (Vitamin D3), 1 TAB PO QAM Fluticasone Prop/Salmeterol (Advair Diskus 250/50 60 Dose), 1 PUFF INH BID PRN for prn Home O2 Therapy (Oxygen), 2 LITERS NA PRN Ipratropium-Albuterol (Duoneb), 1 TREATMENT INH Q4H PRN for SOB/Wheezing Losartan Potassium (Cozaar), 50 MG PO QAM Medication Instructions For Your Scheduled Surgery - Hold the following medications the morning of surgery: Ascorbic Acid (Vitamin C), 1 TAB PO QAM Cholecalciferol (Vitamin D3), 1 TAB PO QAM Losartan Potassium (Cozaar), 50 MG PO QAM - Take the following medications the morning of surgery with a sip of water: Albuterol Hfa (Ventolin Hfa), 2-4 PUFFS INH Q6H PRN for Shortness of Breath (if needed, and bring with you to the hospital) Fluticasone Prop/Salmeterol (Advair Diskus 250/50 60 Dose), 1 PUFF INH BID PRN ( if needed) Home O2 Therapy (Oxygen), 2 LITERS NA PRN (if needed) Ipratropium-Albuterol (Duoneb), 1 TREATMENT INH Q4H PRN for SOB/Wheezing (if needed) - Take the following medications as scheduled the night before surgery: Albuterol Hfa (Ventolin Hfa), 2-4 PUFFS INH Q6H PRN for Shortness of Breath (if needed) Fluticasone Prop/Salmeterol (Advair Diskus 250/50 60 Dose), 1 PUFF INH BID PRN ( if needed) Home O2 Therapy (Oxygen), 2 LITERS NA PRN (if needed) Ipratropium-Albuterol (Duoneb), 1 TREATMENT INH Q4H PRN for SOB/Wheezing (if needed) If you have any questions please call us at [phone] or [phone] or [phone]
--- NOTE | 2017-11-03 10:13 | DIAGNOSTIC IMAGING REPORT ---
CHEST 2 VIEWS ROUTINE HISTORY: Preop. COMPARISON: Chest CT 05/22/2017. FINDINGS: Emphysema. The heart is normal in size. No new focal lung consolidations to suggest pneumonia. No evidence for pulmonary edema. Linear scarlike density within the left lung base. An 8 mm nodular density within the right upper lobe may correspond to the nodular density seen in the prior chest CT. Given the stability a follow-up chest CT is recommended to exclude a pulmonary lesion. IMPRESSION: 1. No acute process within the chest. 2. An 8 mm nodular within the right upper lobe may correspond to the nodular density seen in the prior chest CT. Given the stability a follow-up chest CT is recommended to exclude a pulmonary lesion. These findings were called/faxed to the referring physician's office following dictation. Electronically signed by: Christiano Rebollar M.D. 11/03/2017 10:11 AM Dictated Date/Time: 11/03/2017 10:08 AM
[2017-11-03 11:06] LABS: BASO % 0.4 %; BASO ABS # 0.03 K/uL (0-0.2); EOS ABS # 0.28 K/uL (0-0.5); HEMOGLOBIN 13.9 g/dL (12.0-16.0); IG# 0.01 K/uL (0.00-0.02); LYMPH ABS # 1.98 K/uL (1.2-3.4); MEAN CELL VOLUME 92.1 fL (80-100); MEAN CORPUSCULAR HEMOGLOBIN 30.5 pg (25-34); MEAN CORPUSCULAR HGB CONC 33.1 g/dl (32-36); MEAN PLATELET VOLUME 9.1 fL (7.4-10.4); MONO % 7.6 %; MONO ABS # 0.54 K/uL (0.11-0.59); NEUT % 59.9 %; NEUT ABS # 4.22 K/uL (1.4-6.5); PLATELET COUNT 276 K/uL (130-400); RED CELL DISTRIBUTION WIDTH CV 13.4 % (11.5-14.5); RED CELL DISTRIBUTION WIDTH SD 44.7 fL (36.4-46.3); WHITE BLOOD COUNT 7.06 K/uL (4.8-10.8)
[2017-11-03 11:16] LABS: INR 0.9 (0.9-1.1)
[2017-11-03 11:17] LABS: CALCIUM 8.5 mg/dl (8.5-10.1); CREATININE 0.87 mg/dl (0.60-1.20); POTASSIUM 4.4 mmol/L (3.5-5.1)
[~2017-11-15] VITALS: Ht 172.7 cm; Wt 93.9 kg
[2017-11-15] VITALS (8 sets, daily range): BP systolic 117–147; BP diastolic 72–90; PULSE 77–105; TEMP 35.6–36.8; O2SAT 90–95; Ht 172.7 cm; Wt 93.9 kg
[~2017-11-15 05:27] MED LIST changes: +ASCA500 PO; +CHOL1000 PO; -GFNSR600 PO; +IPRA-64 INH; -IPRASOL4 INH; -LVQ500 PO; -NICO14DI5 TD; -PRED10TA PO; -SDMC1 PO; +VNTHFA/IN INH
[2017-11-15] MEDS ORDERED: CLINDAMYCIN 600 MG/54 ML D5W 54 ML IV SCH (06:00)
[2017-11-15] MEDS ORDERED: GABAPENTIN 300 MG CAP PO SCH (06:00)
[2017-11-15] MEDS ORDERED: ACETAMINOPHEN 500 MG TAB PO SCH (06:00)
[2017-11-15] MEDS ORDERED: LACTATED RINGER'S 1000ML 1,000 ML IV SCH ×2 (06:00)
[2017-11-15] MEDS ORDERED: CeleBREX 200 MG CAP PO SCH (06:00)
[2017-11-15] MEDS ORDERED: FENTANYL CITRATE INJ 50 MCG/1 ML 2 ML VIAL ONE ×4 (06:40→09:19)
[2017-11-15] MEDS ORDERED: MIDAZOLAM HCL 1 MG/ML 2ML VIAL ONE (06:40)
[2017-11-15] MEDS ORDERED: BUPIVACAINE/EPINEPHRINE 0.5% MPF 1:200,000 30 ML VIAL ONE (07:06)
[2017-11-15] MEDS ORDERED: BACITRACIN 50000 UNIT VIAL ONE (07:06)
[2017-11-15] MEDS ORDERED: BUPIVACAINE 0.5 % 5 MG/1 ML PF 10ML VIAL ONE (07:23)
[2017-11-15] MEDS ORDERED: BUPIVACAINE LIPOSOME 1/3% 266 MG/20 ML VIAL ONE (07:23)
--- NOTE | 2017-11-15 07:33 | History & Physical Bridge Note ---
H&P Re-Evaluation Bridge Note: I have examined the patient, reviewed the History & Physical and in the interval since the performance of the History & Physical I have noted the following changes of clinical significance: No changes noted
--- NOTE | 2017-11-15 07:34 | History and Physical ---
History & Physical Date Nov 15, 2017. Chief Complaint Back and leg pain History of Present Illness The patient is a 72 year old female with complaints of back and leg pain Past Medical/Surgical History Medical Problems: (1) Asthma (2) COPD (chronic obstructive pulmonary disease) (3) Hypertension (4) Hyponatremia (5) Hypoxia Additional History Hepatic Disease: No Endocrine Disorder: No Kidney Disease: No Hypertension: Yes Heart Disease: No Bleeding Tendencies: No Infectious Diseases: No Allergies Coded Allergies: Adhesives (Verified Allergy, Unknown, ITCHY, 11/15/17) Penicillins (Verified Allergy, Unknown, HIVES IN MOUTH, 11/15/17) Tramadol (Verified Allergy, Unknown, RASH MOUTH,, 11/15/17) Oxycodone (Verified Adverse Reaction, Unknown, NAUSEA,ANGRY REACTION, 11/15) Home Medications Scheduled Ascorbic Acid (Vitamin C), 1 TAB PO QAM Cholecalciferol (Vitamin D3), 1 TAB PO QAM Home O2 Therapy (Oxygen), 2 LITERS NA PRN Losartan Potassium (Cozaar), 50 MG PO QAM Scheduled PRN Albuterol Hfa (Ventolin Hfa), 2-4 PUFFS INH Q6H PRN for Shortness of Breath Fluticasone Prop/Salmeterol (Advair Diskus 250/50 60 Dose), 1 PUFF INH BID PRN for prn Ipratropium-Albuterol (Duoneb), 1 TREATMENT INH Q4H PRN for SOB/Wheezing Physical Examination Skin: warm/dry, no rash Eyes: normal inspection, EOMI, sclerae normal ENT: normal ENT inspection, pharynx normal Head: normocephalic, atraumatic Neck: supple, no adenopathy, trachea midline Respiratory/Chest: lungs clear, normal breath sounds, no respiratory distress Cardiovascular: regular rate, rhythm, no edema, no murmur Abdomen / GI: normal bowel sounds, non tender Back: normal inspection Extremities: normal inspection, normal range of motion Neurologic/Psych: no motor/sensory deficits, alert, normal reflexes, oriented x 3 Diagnosis Lumbar spinal stenosis with neurogenic claudication Plan of Treatment L2-3 decompression and fusion possible L5-S1 with removal of hardware L3-L5
[2017-11-15] MEDS ORDERED: HYDROmorphone INJ 2 MG/ML SYR/VIAL IV PRN (08:00)
[2017-11-15] MEDS ORDERED: ATROPINE SULFATE 0.1 MG/ML 5ML SYR IV PRN (08:00)
[2017-11-15] MEDS ORDERED: PHENYLEPHRINE 100MCG/ML 5ML SYR IV PRN (08:00)
[2017-11-15] MEDS ORDERED: ONDANSETRON INJ 2 MG/ML 2 ML VIAL IV PRN ×2 (08:00→10:30)
[2017-11-15] MEDS ORDERED: EpHEDrine SULFATE INJ 50 MG/ML AMP IV PRN (08:00)
[2017-11-15] MEDS ORDERED: HYDROmorphone INJ 2 MG/ML SYR/VIAL ONE ×3 (08:04→10:10)
[2017-11-15] MEDS ORDERED: SODIUM CHLORIDE 0.9% PF 50 ML VIAL ONE (08:39)
[2017-11-15] MEDS ORDERED: ALBUTEROL HFA INHALER 8.5 GM INH ONE (08:44)
[2017-11-15] MEDS ORDERED: ONDANSETRON INJ 2 MG/ML 2 ML VIAL ONE (09:44)
[2017-11-15] MEDS ORDERED: EpHEDrine SULFATE 50MG/5ML SYR ONE (09:44)
[2017-11-15] MEDS ORDERED: LIDOCAINE HCL 2% 2 ML VIAL (20MG/ML) ONE (09:44)
[2017-11-15] MEDS ORDERED: DEXAMETHASONE SOD INJ 4 MG/ML VIAL ONE (09:44)
[2017-11-15] MEDS ORDERED: PROPOFOL IV EMULSION 10 MG/ML 20 ML VIAL ONE ×2 (09:44→10:15)
[2017-11-15] MEDS ORDERED: PHENYLEPHRINE 100MCG/ML 5ML SYR ONE (09:44)
[2017-11-15] MEDS ORDERED: ROCURONIUM BROMIDE 10 MG/ML 5 ML VIAL ONE (09:44)
[2017-11-15] MEDS ORDERED: FLOSEAL HEMOSTATIC MATRIX 10ML TOP ONE (10:08)
[2017-11-15] MEDS ORDERED: GLYCOPYRROLATE INJ 0.2 MG/ML VIAL ONE (10:15)
[2017-11-15] MEDS ORDERED: NEOSTIGMINE METHYLSULFATE 1 MG/ML 10ML VIAL ONE (10:15)
--- NOTE | 2017-11-15 10:23 | [facility] Operative Report ---
Operative Report Operative Date Nov 15, 2017. Pre-Operative Diagnosis Lumbar spinal stenosis with neurogenic claudication Post-Operative Diagnosis Lumbar spinal stenosis with neurogenic claudication Procedure(s) Performed 1. Removal of posterior segmental instrumentation L3-4 L4-5 per #2 expiration of fusion L3-4 L4-5 per #3 lumbar decompression medial facetectomies foraminotomies L2-3 and L5-S1. #4 posterior spinal fusion L2-3 L5-S1. #5 placement posterior segmental instrumentation L2-S1. #6 interbody fusion L2-3 and L5-S1. #7 placement of titanium 10 x 22 mm cage L5-S1 and peek 9 x 22 mm cage at L2-3. #8 placement of local autograft in the posterior gutters. #9 placement InFUSE collagen sponge mass graft the posterior gutters and ostial amp in the interbody spaces. Surgeon Dr. Hernandez Postal [employer] Clerk Surgeon(s) PAMELA Christiansen Estimated Blood Loss 450ml Findings Severe spinal stenosis Specimens A) Removed Hardware Anesthesia Type General Description of Procedure Patient was met with preoperatively case discussed all questions addressed. After informed consent obtained patient was taken to the operative suite underwent intubation placed in the prone position on the Jose table on top of the Eze frame. All bony prominences well-padded eyes inspected to ensure no external pressure placed upon the. This point the lumbar spine was prepped and draped in the normal sterile fashion. Of dissection with the assistance Bovie cautery was performed down to and exposing the lamina and transverse processes of L2 and L5 and instrumentation at L3-L4-L5 bilaterally. Then proceeded with hardware at L3-L4-L5 bilaterally explain the fusion mass noting it to be intact. Then performed complete laminectomy of L5 including medial facetectomies foraminotomies followed by L 2 complete laminectomy medial facetectomies foraminotomies. After addressing severe stenosis pedicle screws were placed in L2-L3-L4 L5-S1 bilaterally with the assistance of fluoroscopy the purposes andreina placed. Through a transforaminal approach and right complete discectomy of L5-S1 was performed endplates created to subcortical bleeding bone and a 10 x 22 mm titanium cage filled with ostium bone graft tapped in position. Then proceeded to L2-3. Again a transfer foraminal approach was utilized to remove the disc. It was curetted to subcortical bleeding bone in the 9 x 22 mm peek cage filled with ostium bone graft tapped in position. Rods then compressed locked in final position bilaterally. Transverse processes of L2 L3-L4-L5 and sacral ala burred to subcortical bleeding bone. Infuse collagen sponge mass graft local autograft placed in the posterior gutters. Approximately 100 cc of Exparel injected into the musculature. 15 round STEPHON drain inserted. Incision was then closed with 1 Vicryl fascia 2-0 Vicryl subtends a 4-0 Monocryl for fashion closure Steri-Strips sterile dressings placed. Patient will continue to PACU stable condition. Please note Nika Molina was present throughout the entire procedure involved in patient positioning complex portions of the surgery and final skin closure. I attest to the content of the Intraoperative Record and any orders documented therein. Any exceptions are noted below.
[2017-11-15] MEDS ORDERED: BISACODYL 10 MG SUPP PR PRN (10:30)
[2017-11-15] MEDS ORDERED: FLUTICASONE/SALMETEROL 250/50 (ADVAIR) 14 PUFF/1 INHALER INH PRN (10:30)
[2017-11-15] MEDS ORDERED: DO NOT ADMINISTER FLU VACCINE PRN (10:30)
[2017-11-15] MEDS ORDERED: METOCLOPRAMIDE HCL INJ 5 MG/ML 2 ML VIAL IV PRN (10:30)
[2017-11-15] MEDS ORDERED: ALBUT/IPRATROP 3MG/0.5MG NEB 3 ML VIAL INH PRN (10:30)
[2017-11-15] MEDS ORDERED: FAMOTIDINE 20 MG TAB PO PRN (10:30)
[2017-11-15] MEDS ORDERED: SOD PHOSPHATE/SOD BIPHOSPHATE ENEMA 132 ML BTL PR PRN (10:30)
[2017-11-15] MEDS ORDERED: NALOXONE HCL 0.4 MG/1 ML VIAL/CARP IV PRN (10:30)
[2017-11-15] MEDS ORDERED: MAGNESIUM HYDROXIDE SUSP 30 ML UDC PO PRN (10:30)
[2017-11-15] MEDS ORDERED: LORAZEPAM INJ 0.5 MG in SYRINGE 0.75 ML IV PRN (10:30)
[2017-11-15] MEDS ORDERED: PROMETHAZINE HCL INJ 12.5 MG in SODIUM CHLORIDE 0.9% 50ML 50 ML IV PRN (10:30)
[2017-11-15] MEDS ORDERED: hydrOXYzine HCL 25 MG TAB PO PRN (10:30)
[2017-11-15] MEDS ORDERED: LORAZEPAM 0.5 MG TAB PO PRN (10:30)
[2017-11-15] MEDS ORDERED: ALUMINUM/MAGNESIUM SUSP 30 ML UDC PO PRN (10:30)
[2017-11-15] MEDS ORDERED: ACETAMINOPHEN IV 100 ML IV PRN (10:30)
[2017-11-15] MEDS ORDERED: ACETAMINOPHEN 500 MG TAB PO PRN (10:30)
[2017-11-15] MEDS ORDERED: DO NOT ADMINISTER PNEUMOCOCCAL VACCINE PRN (10:30)
[2017-11-15] MEDS ORDERED: ALBUTEROL HFA 8 GM INHALER INH PRN (10:30)
--- NOTE | 2017-11-15 10:42 | DIAGNOSTIC IMAGING REPORT ---
INTRAOPERATIVE RADIOGRAPHS CLINICAL HISTORY: Hardware removal and lumbar spinal fusion. Fluoroscopy time: 26 seconds. FINDINGS: 5 spot fluoroscopic images of the lumbar spine are presented. There has been discectomy at L2-L3, L4-L5, and L5-S1. There has been lumpectomy and posterior fusion from L2-S1. Interpedicular screws are present at all levels. The orthopedic hardware appears intact. IMPRESSION: Intraoperative images from L2 -S1 spinal fusion as above. Electronically signed by: Devan Johnson M.D. 11/15/2017 10:40 AM Dictated Date/Time: 11/15/2017 10:39 AM
[2017-11-15] MEDS ORDERED: KETOROLAC TROMETHAMINE 30 MG/ML VIAL ONE (10:53)
[2017-11-15] MEDS ORDERED: ESMOLOL HCL 10 MG/ML 10 ML VIAL ONE (10:53)
--- NOTE | 2017-11-15 11:22 | Anesthesiology Progress Note ---
Anesthesia Post Op Note Date & Time Nov 15, 2017 at 11:22 Vital Signs Pain Intensity: 0 Vital Signs Past 12 Hours Date Time Temp Pulse Resp B/P (MAP) Pulse Ox O2 Delivery O2 Flow Rate FiO2 11/15/17 11:14 91 17 11/15/17 11:14 92 17 95 11/15/17 11:13 147/83 11/15/17 11:09 90 15 97 11/15/17 11:09 91 15 11/15/17 11:06 161/88 11/15/17 11:04 91 14 98 11/15/17 11:04 91 14 11/15/17 11:03 92 15 98 11/15/17 11:03 91 15 11/15/17 11:01 158/90 11/15/17 10:58 92 13 98 11/15/17 10:58 92 13 11/15/17 10:56 161/84 11/15/17 10:53 87 14 11/15/17 10:53 87 14 98 11/15/17 10:51 146/81 11/15/17 10:49 139/81 11/15/17 10:48 36.1 87 16 139/81 97 Oxymask 10 11/15/17 05:52 36.8 91 20 95 Room Air Notes Mental Status: alert / awake / arousable, participated in evaluation Pt Amnestic to Procedure: Yes Nausea / Vomiting: adequately controlled Pain: adequately controlled Airway Patency, RR, SpO2: stable & adequate BP & HR: stable & adequate Hydration State: stable & adequate Anesthetic Complications: no major complications apparent
[2017-11-15] MEDS: SODIUM CHLORIDE 0.9% 1000ML 1,000 ML IV SCH ×2 (13:29→19:31)
--- NOTE | 2017-11-15 16:08 | Medical Consult ---
Consultation Date of Consultation: Nov 15, 2017. Attending Physician: Jeovany Hernandez D.O. Reason for Consultation: Medical management History of Present Illness This patient is a 72-year-old female with a history of COPD, chronic hypoxic respiratory failure on intermittent home O2, pulmonary nodules, HTN, and lumbar spinal stenosis, who is in the hospital after having a lumbar surgery with removal of previous instrumentation and a spinal fusion at L2-L3, L5-S1 with cage placement from L5-S1. Hospitalist service was consulted for medical management. Patient is having some pain in lower back, no pain down the legs at this time but did prior to surgery. She denies chest pain or shortness of breath, no nausea or vomiting. She has a chronic cough, however she did quit smoking 6 months ago. Of note, she recently was prescribed Toprol-XL at her PCP preoperative examination, and this did not make it to the home medication reconciliation list. Her last dose was the morning prior to surgery. 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 Pulmonary nodules - chronic - followed by pulmonary in [place] HTN Chronic hypoxic respiratory failure-uses 2 L nasal cannula with exacerbation at home PSH: Right middle trigger finger release Cataract removal Hysterectomy for menorrhagia Lumbar spine fusion Family History Father-mitral valve replacement Mother- of lung cancer Brother-bladder cancer Son-asthma Social History Smoking Status: Former Smoker (Smoked 3 packs per day 51 years equals 153-pack -year smoking history, quit in 05/2017) Alcohol Use: none Drug Use: none Marital Status: , Housing Status: lives with family (HER-2 sons live with her) Occupation Status: retired Allergies Coded Allergies: Adhesives (Verified Allergy, Unknown, ITCHY, 11/15/17) Penicillins (Verified Allergy, Unknown, HIVES IN MOUTH, 11/15/17) Tramadol (Verified Allergy, Unknown, RASH MOUTH,, 11/15/17) Oxycodone (Verified Adverse Reaction, Unknown, NAUSEA,ANGRY REACTION, 11/15) Home Medications Reported Home Medications Medications Dose Route/Sig Max Daily Dose Days Date Category Dose Instructions Metoprolol Succinate ER (Metoprolol Succinate) 25 Mg Tabcr 12.5 Mg PO QAM 30 11/15/17 Reported Ventolin Hfa (Albuterol) 200 Puffs/68225 Mcg Aers 2-4 Puffs INH Q6H PRN 11/03/17 Reported Oxygen Gas 2 Liters NA PRN 11/02/17 Reported Duoneb (Ipratropium-Albuterol) 3 Ml Nebu 1 Treatment INH Q4H PRN 11/02/17 Reported Vitamin D3 (Cholecalciferol) 1,000 Unit Tab 1 Tab PO QAM 90 11/02/17 Reported Vitamin C (Ascorbic Acid) 500 Mg Tab 1 Tab PO QAM 11/02/17 Reported Advair Diskus 250/50 60 Dose (Fluticasone Prop/Salmeterol) 1 Ea Aerp 1 Puff INH BID PRN 11/02/17 Reported Cozaar (Losartan Potassium) 50 Mg Tab 50 Mg PO QAM 05/22/17 Reported 1/2 OF A 100 MG TABLET Current Inpatient Medications Current Inpatient Medications Medications (Trade) Dose Ordered Sig/Remi Route Start Time Stop Time Status Last Admin Dose Admin Lactated Ringer's 1,000 ml @ 15 mls/hr Q24H IV 11/15/17 06:00 11/16/17 05:59 11/15/17 06:16 15 MLS/HR Clindamycin Phosphate 54 ml @ 100 mls/hr PREOP IV 11/15/17 06:00 11/15/17 18:00 11/15/17 07:44 100 MLS/HR Acetaminophen (Tylenol Tab) 1,000 mg PREOP PO 11/15/17 06:00 11/15/17 18:00 11/15/17 06:20 1,000 MG Celecoxib (CeleBREX CAP) 200 mg PREOP PO 11/15/17 06:00 11/15/17 18:00 11/15/17 06:19 200 MG Gabapentin (Neurontin Cap) 300 mg PREOP PO 11/15/17 06:00 11/15/17 18:00 11/15/17 06:20 300 MG Promethazine HCl 12.5 mg/Sodium Chloride 50.5 ml @ 202 mls/hr Q6H PRN IV 11/15/17 10:30 12/15/17 10:29 Ondansetron HCl (Zofran Inj) 4 mg Q6H PRN IV 11/15/17 10:30 12/15/17 10:29 Metoclopramide HCl (Reglan Inj) 10 mg Q6H PRN IV 11/15/17 10:30 12/15/17 10:29 Lorazepam (Ativan Tab) 0.5 mg Q8H PRN PO 11/15/17 10:30 12/15/17 10:29 Lorazepam 0.5 mg/ Syringe 1 ml @ 1 mls/min Q8H PRN IV 11/15/17 10:30 12/15/17 10:29 Pneumococcal Polysaccharide Vaccine 1 ea PRN PRN N/A 11/15/17 10:30 12/15/17 10:29 Influenza Virus Vacc Triv Types A&B 1 ea PRN PRN N/A 11/15/17 10:30 12/15/17 10:29 Polyethylene (Miralax Powder Packet) 17 gm Q6 PO 11/17/17 06:00 12/17/17 05:59 Bisacodyl (Dulcolax Supp) 10 mg DAILY PRN CA 11/15/17 10:30 12/15/17 10:29 Magnesium Hydroxide (Milk Of Magnesia Susp) 30 ml DAILY PRN PO 11/15/17 10:30 12/15/17 10:29 Hydromorphone HCl (Dilaudid Inj) 0.5-1mg prn moder... Q3H PRN IV 11/15/17 12:05 11/29/17 12:04 Acetaminophen/ Hydrocodone Bitart ([place] 5/325 Tab) 1-2 tabs prn moder... Q4H PRN PO 11/15/17 12:10 11/29/17 12:09 Cefazolin Sodium 2000 mg/Syringe 15 ml @ 3.75 mls/ min Q8H IV 11/15/17 18:00 11/16/17 02:03 Sodium Chloride 1,000 ml @ 150 mls/hr Q6H40M IV 11/15/17 12:15 12/15/17 12:14 11/15/17 13:29 150 MLS/HR Acetaminophen (Tylenol Tab) 1,000 mg Q8H PRN PO 11/15/17 10:30 12/15/17 10:29 Acetaminophen 100 ml @ 400 mls/hr Q8H PRN IV 11/15/17 10:30 12/15/17 10:29 Naloxone HCl (Narcan Inj) 0.1 mg Q5M PRN IV 11/15/17 10:30 12/15/17 10:29 Senna/Docusate Sodium (Senokot S Tab) 2 tab HS PO 11/15/17 21:00 12/15/17 20:59 Sodium Biphosphate/ Sodium Phosphate (Fleet Enema) 132 ml ONE PRN CA 11/15/17 10:30 12/15/17 10:29 Hydroxyzine HCl (Vistaril Tab) 25 mg Q8H PRN PO 11/15/17 10:30 12/15/17 10:29 Al Hydroxide/Mg Hydroxide (Maalox Susp) 30 ml Q6H PRN PO 11/15/17 10:30 12/15/17 10:29 Famotidine (Pepcid Tab) 20 mg Q12 PRN PO 11/15/17 10:30 12/15/17 10:29 Albuterol (Ventolin Hfa Inhaler) 2 puffs Q6H PRN INH 11/15/17 10:30 12/15/17 10:29 Salmeterol Xinafoate/ Fluticasone (Advair Diskus 250/50 Inh) 1 puff BID PRN INH 11/15/17 10:30 12/15/17 10:29 Albuterol/ Ipratropium (Duoneb) 3 ml Q4H PRN INH 11/15/17 10:30 12/15/17 10:29 Losartan Potassium (coZAAR TAB) 50 mg QAM PO 11/16/17 09:00 12/16/17 08:59 Review of Systems Constitutional: No fever, No chills Eyes: No problem reported ENT: No problem reported Respiratory: + cough (Chronic), No shortness of breath Cardiovascular: No chest pain Abdomen: No pain, No nausea, No vomiting Musculoskeletal: + problem reported (Lower back pain) Genitourinary - Female: No problem reported Neurologic: No problem reported Psychiatric: No problem reported Endocrine: No problem reported Hematologic / Lymphatic: No problem reported Integumentary: No problem reported Allergic / Immunologic: No problem reported Physical Exam Date Time Temp Pulse Resp B/P (MAP) Pulse Ox O2 Delivery O2 Flow Rate FiO2 11/15/17 15:32 36.8 92 16 134/77 (96) 93 Nasal Cannula 2.0 8/15/18 15:20 Nasal Cannula 2.0 15/18 14:43 36.5 94 Nasal Cannula 2.0 15/18 13:42 36.5 82 17 142/90 (107) 94 Nasal Cannula 4.0 15/18 12:15 35.6 77 17 138/85 (102) 91 Nasal Cannula 4.0 1518 11:50 Nasal Cannula 4.0 18 11:50 Nasal Cannula 4.0 18 11:50 35.7 84 16 147/82 (103) 91 Nasal Cannula 4.0 11/15/18 11:36 86 16 152/85 93 18 11:36 86 16 11/15/17 11:31 87 18 11/15/17 11:31 88 18 139/86 93 11/15/17 11:26 89 14 18 11:26 36.2 95 Nasal Cannula 4 11/15/17 11:26 88 14 146/91 96 11/15/17 11:25 87 15 11/15/17 11:25 86 15 95 11/15/17 11:21 145/87 11/15/17 11:20 91 17 94 11/15/17 11:20 92 17 11/15/17 11:16 147/91 11/15/17 11:15 92 18 94 11/15/17 11:15 92 18 11/15/17 11:14 91 17 11/15/17 11:14 92 17 95 11/15/17 11:13 147/83 11/15/17 11:09 90 15 97 11/15/17 11:09 91 15 11/15/17 11:06 161/88 11/15/17 11:04 91 14 98 11/15/17 11:04 91 14 11/15/17 11:03 92 15 98 11/15/17 11:03 91 15 11/15/17 11:01 158/90 11/15/17 10:58 92 13 98 18 10:58 92 13 1518 10:56 161/84 11/15/17 10:53 87 14 18 10:53 87 14 98 11/15/17 10:51 146/81 18 10:49 139/81 8/15/18 10:48 36.1 87 16 139/81 97 Oxymask 10 11/15/17 05:52 36.8 91 20 95 Room Air General Appearance: WD/WN, no apparent distress Head: normocephalic, atraumatic Eyes: normal inspection, PERRL, EOMI, sclerae normal ENT: hearing grossly normal, pharynx normal Neck: supple, no adenopathy, thyroid normal, trachea midline Respiratory/Chest: lungs clear, normal breath sounds, no respiratory distress, no accessory muscle use Cardiovascular: regular rate, rhythm, no edema, no gallop, no murmur, normal peripheral pulses Abdomen/GI: normal bowel sounds, non tender, soft, no organomegaly, no pulsatile mass Extremities/Musculoskelatal: normal inspection, no calf tenderness, normal capillary refill, no pedal edema Neurologic/Psych: alert, normal mood/affect, oriented x 3 Skin: normal color, warm/dry, no rash Lymphatic: no adenopathy Assessment & Plan This patient is a 72-year-old female with a history of COPD, chronic hypoxic respiratory failure on intermittent home O2, pulmonary nodules, HTN, and lumbar spinal stenosis, who is in the hospital after having a lumbar surgery with removal of previous instrumentation and a spinal fusion at L2-L3, L5-S1 with cage placement from L5-S1. Lumbar spine surgery-postoperative management as per orthopedic spine surgeon -Pain control, DVT prophylaxis -PT/OT evaluations -Continue cefazolin -Follow postop CBC, BMP COPD/chronic hypoxic respiratory failure/pulmonary nodules-stable at this time, on oxygen currently via nasal cannula -Continue supplemental O2 to keep pulse ox greater than 92% -Continue albuterol as needed, DuoNeb's as needed, and home Advair -Due for CT scan of the chest with quality management nurse as an outpatient one year from previous which would be in 05/2018 HTN-blood pressures controlled at this time -Added Toprol-XL to home med rec-prescribed is 25 mg daily but she said she is actually only taking a half tablet at this time -Restart Toprol XL 12.5 mg once daily -Continue losartan and watch creatinine in the morning Prophylaxis-SCDs Disposition-remain on surgical floor, PT/OT evaluations-patient opting for home with home health most likely Additional Copies To Becca Araujo DO
[2017-11-15] MEDS ORDERED: TPRSR/25 PO (17:19)
[2017-11-15] MEDS: CEFAZOLIN IV 2,000 MG in SYRINGE 0 ML IV SCH (17:37)
[2017-11-15] MEDS: HYDROCODONE/ACETAMIN 5/325MG TAB PO PRN (17:39)
[2017-11-15] MEDS: HYDROmorphone INJ 0.5 MG/0.5 ML SYR IV PRN (19:45)
[2017-11-15] MEDS: DOCUSATE SODIUM/SENNA 50/8.6MG TAB PO SCH (21:00)
[2017-11-16] MEDS: SODIUM CHLORIDE 0.9% 1000ML 1,000 ML IV SCH (02:02)
[2017-11-16] MEDS: CEFAZOLIN IV 2,000 MG in SYRINGE 0 ML IV SCH (02:02)
[2017-11-16 04:03] VITALS: BP 126/71; PULSE 96; TEMP 36.9; O2SAT 94
[2017-11-16] MEDS: HYDROCODONE/ACETAMIN 5/325MG TAB PO PRN ×2 (04:07→20:17)
[2017-11-16] MEDS: HYDROmorphone INJ 0.5 MG/0.5 ML SYR IV PRN (05:58)
[2017-11-16] MEDS ORDERED: NURSING DECISION MEDICATION ORDER SCH (06:15)
[2017-11-16 06:55] VITALS: BP 116/69; PULSE 88; TEMP 36.8; O2SAT 91
[2017-11-16 07:25] LABS: BASO % 0.1 %; BASO ABS # 0.01 K/uL (0-0.2); EOS % 0.4 %; EOS ABS # 0.04 K/uL (0-0.5); HEMATOCRIT 32.7 % (37-47); HEMOGLOBIN 10.5 g/dL (12.0-16.0); IG# 0.01 K/uL (0.00-0.02); LYMPH % 16.3 %; LYMPH ABS # 1.53 K/uL (1.2-3.4); MEAN CELL VOLUME 93.2 fL (80-100); MEAN CORPUSCULAR HEMOGLOBIN 29.9 pg (25-34); MEAN CORPUSCULAR HGB CONC 32.1 g/dl (32-36); MEAN PLATELET VOLUME 8.5 fL (7.4-10.4); MONO % 8.5 %; NEUT % 74.6 %; PLATELET COUNT 219 K/uL (130-400); RED CELL DISTRIBUTION WIDTH CV 13.8 % (11.5-14.5); RED CELL DISTRIBUTION WIDTH SD 47.1 fL (36.4-46.3); WHITE BLOOD COUNT 9.39 K/uL (4.8-10.8)
[2017-11-16 07:55] LABS: CALCIUM 7.7 mg/dl (8.5-10.1); CREATININE 0.78 mg/dl (0.60-1.20); POTASSIUM 4.6 mmol/L (3.5-5.1)
--- NOTE | 2017-11-16 08:29 | Progress Note ---
Progress Note Date of Service Nov 16, 2017. Progress Note Patient's back pain is controlled leg pain markedly improved vital signs stable on exam she is good strength testing appears comfortable. Assessment multilevel lumbar decompression fusion per plan at this time will initiate physical therapy advance her bowel regiment anticipate discharge with home health in the next few days.
[2017-11-16] MEDS ORDERED: HYDR-5688 PO (08:34)
--- NOTE | 2017-11-16 08:34 | Discharge Instructions ---
Discharge Instructions Date of Service Nov 16, 2017. Admission Reason for Admission: Lumbar Spinal Stenosis Discharge Discharge Diagnosis / Problem: lumbar stenosis Discharge Goals Goal(s): Improve function Activity Recommendations Activity Limitations: per Instructions/Follow-up section . Instructions / Follow-Up Instructions / Follow-Up ACTIVITY RECOMMENDATIONS: SELF CARE INSTRUCTIONS AFTER THORACIC/LUMBAR FUSIONS 1. You may walk to your tolerance. It is good exercise for your legs and back. Expect some back and intermittent leg aches and pains. 2. You may perform "counter-top" level activities (make a sandwich, mik with a project, etc.). 3. No bending or lifting of more than 10 pounds or back twisting of any nature (roll like a log when turning in bed). 4. You may ride in a car for 20-30 minutes at a time. No driving until after your first visit with your doctor. 5. Frequent changes of position and restricting sitting to 30 minutes at a time will help limit the amount of back spasms and stiffness you may experience. 6. You may discontinue the use of ambulatory aids (cane, crutches, etc.) once your strength and confidence allow. 7. You may button decorating machine operator the shower and let water strike your incision when you arrive home at least once daily. Do not take a tub bath, sit in a hot tub or go into a swimming pool until after your first recheck in the office. SPECIAL CARE INSTRUCTIONS: VERY IMPORTANT TO READ AND REVIEW A. Your surgical incision has been closed with a cosmetic suture under the skin that will dissolve in about 6 weeks. In 14 days, you can use a pair of clean scissors and cut the suture that is left outside of the skin at the ends of your incision. 1. The small skin tapes can be removed 7 days after surgery if they have not fallen off by that point. 2. You may keep the wound open to air as much as possible to promote healing after post-op day number 5 unless told otherwise by your doctor. 3. If you think the wound looks like it is becoming infected (redness or worsening drainage) and/or you are experiencing fever, chill or worsening back pain and muscle spasms, contact the office so that we may evaluate you as soon as possible. B. Complications are uncommon, but please contact us if you have any signs or symptoms of: 1. wound infection (fever higher than 102.5 degrees F, redness, separation of wound, drainage, or increasing pain from the incision) 2. blood clots in legs (pain, swelling, redness and warmth in legs) 3. urinary tract infection (fever higher than 102.5 degrees F, burning upon urination or increased frequency of urination) 4. nerve problems (inability to walk on your toes or heels, numbness, loss of bowel or bladder control) 5. any other symptoms that concern you C. Please call the office at if you have any concerns or questions about your operation or recovery. D. No smoking! Smoking drastically decreases the chance of a solid fusion. E. Do not take any anti-inflammatory medications (Indocin, Advil, Motrin, Aspirin, Naprosyn, etc.) as these may inhibit the chance of a solid fusion. Tylenol is okay to take for pain. MANAGING PAIN AFTER SPINAL SURGERY 1. Narcotic medication is intended for short-term use and will be provided for surgical pain. Surgical pain usually lasts for a period of 4-6 weeks. Narcotic medication includes Percocet, Vicodin, Darvocet, Tylenol #3 or Lortab. 2. Longer-term pain is more appropriately treated with non-narcotic medication such as Tylenol ES. 3. Muscle spasm is not appropriately treated with narcotics. Muscle relaxers such as Soma, Flexeril or Skelaxin can be used along with Tylenol ES. 4. Remember that we all live with some "aches and pains". This is not unusual or uncommon after an injury or as we get older. a. Back pain is expected and may include muscle spasms for 4 to 6 weeks after surgery. The pain should gradually improve. If the pain worsens for no apparent reason, please contact the office. b. Intermittent leg pain may also be experienced and should not be concerned about unless it worsens for no apparent reason. If so, please contact the office. 5. We will provide appropriate medication within the normal guidelines of their prescribed use. We will also be very cautious and aware of potential abuse and extended duration of patients' medication needs. a. Pain medications are for your comfort and to assist with sleep and rest so that the tissue can heal. They are not provided in order to return to normal activity and should not be used through the day. To do so or worsening pain at night can result from ongoing tissue damage and development of tolerance to the prescribed medicine. 6. Please allow 2-3 days to process refills. Prescriptions will not be mailed but must be picked up at the office. FOLLOW UP VISIT: Keep your scheduled follow-up appointment. Any questions, please call the office at . Current Hospital Diet Patient's current hospital diet: Regular Diet Discharge Diet Recommended Diet: Regular Diet Procedures Procedures Performed: 1. Removal of posterior segmental instrumentation L3-4 L4-5 per #2 expiration of fusion L3-4 L4-5 per #3 lumbar decompression medial facetectomies foraminotomies L2-3 and L5-S1. #4 posterior spinal fusion L2-3 L5-S1. #5 placement posterior segmental instrumentation L2-S1. #6 interbody fusion L2-3 and L5-S1. #7 placement of titanium 10 x 22 mm cage L5-S1 and peek 9 x 22 mm cage at L2-3. #8 placement of local autograft in the posterior gutters. #9 placement InFUSE collagen sponge mass graft the posterior gutters and ostial amp in the interbody spaces. Pending Studies Studies pending at discharge: no Medical Emergencies . Who to Call and When: Medical Emergencies: If at any time you feel your situation is an emergency, please call 911 immediately. . Non-Emergent Contact Non-Emergency issues call your: Primary Care Provider . "Provider Documentation" section prepared by Jeovany Hernandez. .
[2017-11-16 08:50] VITALS: BP 127/77; PULSE 97
[2017-11-16] MEDS: LOSARTAN POTASSIUM 50 MG TAB PO SCH (08:56)
[2017-11-16] MEDS: METOPROLOL SUCC 25MG EXT REL TAB PO SCH (08:56)
--- NOTE | 2017-11-16 10:07 | Anesthesiology Progress Note ---
Anesthesia Post Op Note Date & Time Nov 16, 2017 at 10:07 Vital Signs Pain Intensity: 0.0 Vital Signs Past 12 Hours Date Time Temp Pulse Resp B/P (MAP) Pulse Ox O2 Delivery O2 Flow Rate FiO2 11/16/17 08:50 97 127/77 (94) 11/16/17 07:18 Nasal Cannula 2.0 11/16/17 06:55 36.8 88 16 116/69 (85) 91 Nasal Cannula 2.0 11/16/17 04:03 36.9 96 17 126/71 (89) 94 Nasal Cannula 2.0 11/15/17 23:45 Nasal Cannula 2.0 11/15/17 23:22 36.5 98 16 117/72 (87) 90 Nasal Cannula 2.0 Notes Mental Status: alert / awake / arousable, participated in evaluation Pt Amnestic to Procedure: Yes Nausea / Vomiting: adequately controlled Pain: adequately controlled Airway Patency, RR, SpO2: stable & adequate BP & HR: stable & adequate Hydration State: stable & adequate Anesthetic Complications: no major complications apparent
[2017-11-16 15:23] VITALS: BP 144/83; PULSE 84; TEMP 37.1; O2SAT 94
--- NOTE | 2017-11-16 16:01 | Hospitalist Progress Note ---
Hospitalist Progress Note Date of Service Nov 16, 2017. Subjective Pt evaluation today including: conversation w/ patient Just had Blankenship removed 2 hours ago and no void yet. No BM yet but feels it is coming soon. Denies chest pain. Is very minimall SOB with exertion which is chronic for her. Wearing 2LNC continuously. Haivng some pain in the back but fairly well controlled, ambulated down the bui today with PT. All Other Systems: Reviewed and Negative Objective Vital Signs Date Time Temp Pulse Resp B/P (MAP) Pulse Ox O2 Delivery O2 Flow Rate FiO2 11/16/17 15:23 37.1 84 17 144/83 (103) 94 Nasal Cannula 2.0 11/16/17 15:19 Nasal Cannula 2.0 11/16/17 08:50 97 127/77 (94) 11/16/17 07:18 Nasal Cannula 2.0 11/16/17 06:55 36.8 88 16 116/69 (85) 91 Nasal Cannula 2.0 11/16/17 04:03 36.9 96 17 126/71 (89) 94 Nasal Cannula 2.0 11/15/17 23:45 Nasal Cannula 2.0 11/15/17 23:22 36.5 98 16 117/72 (87) 90 Nasal Cannula 2.0 11/15/17 19:28 36.8 105 16 126/74 (91) 92 Nasal Cannula 2.0 Physical Exam General Appearance: WD/WN, no apparent distress Eyes: normal inspection, sclerae normal ENT: hearing grossly normal Neck: trachea midline Respiratory/Chest: lungs clear, normal breath sounds, no respiratory distress, no accessory muscle use Cardiovascular: regular rate, rhythm, no edema, no murmur Abdomen: normal bowel sounds, non tender, soft, no organomegaly Extremities: normal inspection, no pedal edema, no calf tenderness Neurologic/Psychiatric: alert, normal mood/affect, oriented x 3 Skin: normal color, warm/dry, no rash Laboratory Results Last 24 Hours Test 11/16/17 07:14 White Blood Count 9.39 K/uL Red Blood Count 3.51 M/uL Hemoglobin 10.5 g/dL Hematocrit 32.7 % Mean Corpuscular Volume 93.2 fL Mean Corpuscular Hemoglobin 29.9 pg Mean Corpuscular Hemoglobin Concent 32.1 g/dl Platelet Count 219 K/uL Mean Platelet Volume 8.5 fL Neutrophils (%) (Auto) 74.6 % Lymphocytes (%) (Auto) 16.3 % Monocytes (%) (Auto) 8.5 % Eosinophils (%) (Auto) 0.4 % Basophils (%) (Auto) 0.1 % Neutrophils # (Auto) 7.00 K/uL Lymphocytes # (Auto) 1.53 K/uL Monocytes # (Auto) 0.80 K/uL Eosinophils # (Auto) 0.04 K/uL Basophils # (Auto) 0.01 K/uL RDW Standard Deviation 47.1 fL RDW Coefficient of Variation 13.8 % Immature Granulocyte % (Auto) 0.1 % Immature Granulocyte # (Auto) 0.01 K/uL Sodium Level 136 mmol/L Potassium Level 4.6 mmol/L Chloride Level 103 mmol/L Carbon Dioxide Level 30 mmol/L Anion Gap 4.0 mmol/L Blood Urea Nitrogen 13 mg/dl Creatinine 0.78 mg/dl Est Creatinine Clear Calc Drug Dose 79.3 ml/min Estimated GFR () 88.6 Estimated GFR (Non- 76.5 BUN/Creatinine Ratio 16.1 Random Glucose 116 mg/dl Calcium Level 7.7 mg/dl Assessment and Plan This patient is a 72-year-old female with a history of COPD, chronic hypoxic respiratory failure on intermittent home O2, pulmonary nodules, HTN, and lumbar spinal stenosis, who is in the hospital after having a lumbar surgery with removal of previous instrumentation and a spinal fusion at L2-L3, L5-S1 with cage placement from L5-S1. Lumbar spine surgery-postoperative management as per orthopedic spine surgeon- doing very well post-operatively. Hgb with somewhat of a drop to 10.5 from 13.9 but not that significant, vitals excellent/HD stable. -Pain control, DVT prophylaxis -PT/OT evaluations -cefazolin completed for prophylaxis COPD/chronic hypoxic respiratory failure/pulmonary nodules-stable at this time, on oxygen currently via nasal cannula at 2 L which is what she uses at home -Continue supplemental O2 to keep pulse ox greater than 92% -Continue albuterol as needed, DuoNeb's as needed, and home Advair -Due for CT scan of the chest with medical reception as an outpatient one year from previous which would be in 05/2018; has outpt Pulm appt in Dec Dr. Madden HTN-blood pressures controlled at this time -Added Toprol-XL to home med rec-prescribed is 25 mg daily but she said she is actually only taking a half tablet at this time -cont Toprol XL 12.5 mg once daily -Continue losartan Prophylaxis-SCDs Disposition-remain on surgical floor, PT/OT evaluations-patient opting for home with home health most likely 1-2 days as per Ortho Pt doing very well from a medical standpoint-Hospitalist service will sign off at this point. Please feel free to reconsult if a new or acute issue arises.
[2017-11-16] MEDS: DOCUSATE SODIUM/SENNA 50/8.6MG TAB PO SCH (20:16)
[2017-11-17 00:20] VITALS: BP 134/84; PULSE 88; TEMP 36.8; O2SAT 96
[2017-11-17] MEDS: HYDROCODONE/ACETAMIN 5/325MG TAB PO PRN ×4 (00:31→21:31)
[2017-11-17] MEDS: POLYETHYLENE (MIRALAX) 17 GM PACK PO SCH ×4 (05:59→23:34)
[2017-11-17 07:57] VITALS: BP 152/92; PULSE 80; TEMP 36.9; O2SAT 94
[2017-11-17] MEDS: METOPROLOL SUCC 25MG EXT REL TAB PO SCH (08:20)
[2017-11-17] MEDS: LOSARTAN POTASSIUM 50 MG TAB PO SCH (08:20)
--- NOTE | 2017-11-17 13:42 | Progress Note ---
Progress Note Date of Service Nov 17, 2017. Progress Note Patient's back pain is controlled leg pain markedly improved vital signs stable. STEPHON drain decreasing probably. Assessment status post lumbar decompression fusion per plan at this time will maintain the STEPHON drain another 24 hours anticipate discharge home tomorrow.
[2017-11-17 15:22] VITALS: BP 151/84; PULSE 84; TEMP 36.8; O2SAT 92
[2017-11-17] MEDS: DOCUSATE SODIUM/SENNA 50/8.6MG TAB PO SCH (20:55)
[2017-11-17 23:10] VITALS: BP 154/85; PULSE 96; TEMP 36.8; O2SAT 93
[2017-11-18] MEDS: HYDROCODONE/ACETAMIN 5/325MG TAB PO PRN ×2 (03:58→11:53)
[2017-11-18] MEDS: POLYETHYLENE (MIRALAX) 17 GM PACK PO SCH ×2 (06:36→11:50)
[2017-11-18 07:58] VITALS: BP 165/92; PULSE 82; TEMP 36.8; O2SAT 94
[2017-11-18] MEDS: LOSARTAN POTASSIUM 50 MG TAB PO SCH (09:14)
[2017-11-18] MEDS: METOPROLOL SUCC 25MG EXT REL TAB PO SCH (09:14)
--- NOTE | 2017-11-18 09:22 | Discharge Summary ---
Orthopedic Discharge Summary Admission Date/Reason Nov 15, 2017 at 11:59 Lumbar Spinal Stenosis. Discharge Date/Disposition Nov 18, 2017 Home Diagnosis Principal Diagnosis: Lumbar spinal stenosis Admission Physical Exam As per Admitting History & Physical. Hospital Course She underwent lumbar decompression fusion tolerated this well was taken to the [facility]. Postop day #1 she was up and ambulatory progressed the postop day #2. Back pain controlled leg pain improved STEPHON drain decreased appropriately subsequently discharged home. Discharge orders and instructions found in the chart for further review. Discharge Instructions Please refer to the electronic Patient Visit Report (Discharge Instructions) for additional information.
[2017-11-18 10:00] VITALS: BP 165/92; PULSE 82; TEMP 36.8; O2SAT 94
== END 2017-11-18 12:15 | disposition home or self-care (01) | DRG 454 ==
LOC: C.ACU 05:27 → ENRESERV 11:10 → C.3E 11:59
PROVIDERS: ADMIT Orthopaedic Surgery Orthopaedic Surgery of the Spine; ATTEND Orthopaedic Surgery Orthopaedic Surgery of the Spine
PROC: 0SG30AJ Fusion of Lumbosacral Joint with Interbody Fusion Device, Posterior Approach, Anterior Column, Open Approach (ICD-10-PCS; principal; 2017-11-15 07:45)
PROC: 0ST40ZZ Resection of Lumbosacral Disc, Open Approach (ICD-10-PCS; principal; 2017-11-15 07:45)
PROC: 0SG00AJ Fusion of Lumbar Vertebral Joint with Interbody Fusion Device, Posterior Approach, Anterior Column, Open Approach (ICD-10-PCS; principal; 2017-11-15 07:45)
PROC: 0SG3071 Fusion of Lumbosacral Joint with Autologous Tissue Substitute, Posterior Approach, Posterior Column, Open Approach (ICD-10-PCS; principal; 2017-11-15 07:45)
PROC: 0SG0071 Fusion of Lumbar Vertebral Joint with Autologous Tissue Substitute, Posterior Approach, Posterior Column, Open Approach (ICD-10-PCS; principal; 2017-11-15 07:45)
PROC: 0QP004Z Removal of Internal Fixation Device from Lumbar Vertebra, Open Approach (ICD-10-PCS; principal; 2017-11-15 07:45)
DX: M48.062 Spinal stenosis, lumbar region with neurogenic claudication (principal); J96.11 Chronic respiratory failure with hypoxia; J44.9 Chronic obstructive pulmonary disease, unspecified; I10 Essential (primary) hypertension; Z88.0 Allergy status to penicillin; Z88.5 Allergy status to narcotic agent; Z98.1 Arthrodesis status; J98.4 Other disorders of lung; Z80.1 Family history of malignant neoplasm of trachea, bronchus and lung; Z80.52 Family history of malignant neoplasm of bladder; Z87.891 Personal history of nicotine dependence

== ENCOUNTER 2019-03-07 14:35 | Inpatient (IN) ==
[2019-03-07] MEDS ORDERED: ALBUT/IPRATROP 3MG/0.5MG NEB 3 ML VIAL INH STA (15:33)
[2019-03-07] MEDS ORDERED: methylPREDNISolone 125 MG/2 ML VIAL IV STA (15:33)
[2019-03-07] MEDS ORDERED: MAGNESIUM SULFATE / D5W 1 GM/100 ML BAG IV ONE ×2 (15:33→17:09)
--- NOTE | 2019-03-07 15:54 | XRay Report ---
XR chest 1V portable CLINICAL HISTORY: Dyspnea COMPARISON STUDY: June 08, 2018 FINDINGS: The heart is borderline enlarged. Is evidence for underlying emphysema with chronic basilar interstitial thickening. There is no acute lobar consolidation. There are no pleural effusions. Ther e is no overt failure.[ IMPRESSION: Emphysema with chronic parenchymal changes similar to the preceding study. No acute findi ngs Electronically signed by: Daryl Kowalski M.D. 03/07/2019 3:53 PM
[2019-03-07 16:02] LABS: Basophils # (auto) 0.04 K/uL (0-0.2); Basophils % (auto) 0.5 %; Eosinophils # (auto) 0.53 K/uL (0-0.5); Eosinophils % (auto) 6.3 %; Hematocrit (blood only) 41.7 % (37-47); Hemoglobin 12.8 g/dL (12.0-16.0); Immature Granulocytes # (auto) 0.01 K/uL (0.00-0.02); Immature Granulocytes % (auto) 0.1 %; Lymphocytes # (auto) 2.45 K/uL (1.2-3.4); Lymphocytes % (auto) 29.2 %; Mean Corpuscular Hemoglobin 26.3 pg (25-34); Mean Corpuscular Hgb Conc 30.7 g/dL (32-36); Mean Corpuscular Volume 85.8 fL (80-100); Monocytes # (auto) 0.66 K/uL (0.11-0.59); Monocytes % (auto) 7.9 %; Neutrophils # (auto) 4.69 K/uL (1.4-6.5); Platelet Count 316 K/uL (130-400); RDW Standard Deviation 53.7 fL (36.4-46.3); Red Blood Count 4.86 M/uL (4.2-5.4); White Blood Count 8.38 K/uL (4.8-10.8)
[2019-03-07 16:16] LABS: Partial Thromboplastin Ratio 0.9; Partial Thromboplastin Time 24.2 Seconds (21.0-31.0); Prothrombin Time 10.3 Seconds (9.0-12.0)
[2019-03-07 16:19] LABS: Albumin Level 2.9 gm/dl (3.4-5.0); BUN Creatinine Ratio 13.6 (10-20); Calcium 8.6 mg/dl (8.5-10.1); Creatinine Clr Calc Pharmacy 75.3 ml/min; Est GFR (African American) 79.3; Est GFR (Non-African American) 68.5; Potassium 3.6 mmol/L (3.5-5.1)
[2019-03-07 16:23] LABS: Albumin Globulin Ratio 0.8 (0.9-2); Bilirubin,Total 0.2 mg/dl (0.2-1); Globulin 3.8 gm/dl (2.5-4.0); Total Protein 6.7 gm/dl (6.4-8.2); Troponin I 0.025 ng/ml (0-0.045)
[2019-03-07] MEDS ORDERED: BENZONATATE 100 MG CAPSULE PO ONE (17:09)
[2019-03-07] MEDS ORDERED: ALBUT/IPRATROP 3MG/0.5MG NEB 3 ML VIAL NEB ONE (17:09)
[2019-03-07] MEDS ORDERED: AZITHROMYCIN 250 MG TAB PO ONE (17:09)
[2019-03-07] MEDS ORDERED: SODIUM CHLORIDE 0.9% 1000ML 500 ML IV ONE (17:21)
[2019-03-07 17:29] LABS: Appearance Urine Clear (Clear); Bacteria Urine Automated Negative (Negative); Bilirubin Urine Negative (Negative); Blood Urine Negative (Negative); Color Urine Yellow; Epithelial Cell Urine Auto >30 /lpf (0-5); Glucose Urine UA Negative (Negative); Ketones Urine Negative (Negative); Leukocyte Esterase Urine Trace (Negative); Nitrite Urine Negative (Negative); Protein Urine Negative (Negative); RBC Urine Automated 0-4 /hpf (0-4); Urobilinogen Urine Negative (Negative)
[2019-03-07 18:18] LABS: Influenza A virus by PCR Neg for Influ A (Neg); Influenza B virus by PCR Neg for Influ B (Neg)
--- NOTE | 2019-03-07 18:43 | Emergency Department Note ---
Entered by Derek Foster acting as a scribe for History of Present Illness General Chief complaint: Shortness of Breath/Dyspnea Stated complaint: BREATHING Time Seen by Provider: 03/07/19 15:09 Source: patient History of Present Illness Provider complaint: Shortness of breath Onset (ago): week(s) 1 Location: chest Severity: similar to prior episodes Pain Consistency: + constant and + other (Worsening) Exacerbated By: + other (Exertion) Associated symptoms: + cough and + other (Lower extremity swelling); no fever/chills The patient is a 73 year old female w/ PMHx of COPD, asthma, AVN, HTN, and lumbar stenosis who presents to the ED w/ CC of constant shortness of breath that has been an ongoing issue for some time but became acute worse over the past week. The patient states she also has a cough that is productive with dark green mucous. The patient notes that her symptoms are worse with exertion. Additionally, the patient has some bilateral lower extremity swelling, left worse than right since 2018, however on her right stevens she recently noticed a tender lump. She denies any injury or trauma to the area. Given the patient's history of COPD she has inhalers and nebs at home that she has been using but her symptoms persist. The patient also has oxygen at home that she uses PRN. The patient admits to being a former smoker having quit 2 years ago. The patient denies any history of blood clots as well as any recent travel or abx use. Home Medications Home Medications Medication Instructions Recorded Confirmed Type ascorbic acid (vitamin C) [Vitamin 500 mg PO QAM 06/08/18 03/07/19 History C] ipratropium-albuterol 1 dose INHALATION Q4 PRN 06/08/18 03/07/19 History umeclidinium-vilanterol [Anoro 1 puff INHALATION QAM 06/08/18 03/07/19 History Ellipta] ibuprofen 400 mg PO Q6 PRN 08/11/18 03/07/19 History albuterol sulfate 90 mcg/actuation 1 - 2 puff INHALATION .COMPLEX PRN 12/05/18 03/07/19 Rx aerosol inhaler #18 gm losartan 50 mg tablet 50 mg PO BID #180 tab 02/08/19 03/07/19 Rx furosemide [Lasix] 20 mg PO DAILY PRN 03/07/19 03/07/19 History Allergies Allergy/AdvReac Type Severity Reaction Status Date / Time adhesive Allergy Unknown ITCHY Verified 03/07/19 16:00 Penicillins Allergy Unknown HIVES IN Verified 03/07/19 16:00 MOUTH tramadol Allergy Unknown RASH MOUTH, Verified 03/07/19 16:00 oxycodone AdvReac Unknown NAUSEA,ANGRY Verified 03/07/19 16:00 REACTION Past Med/Surg History Medical History Anxiety Asthma AVN (avascular necrosis of bone) R hip COPD (chronic obstructive pulmonary disease) Hypertension Lichen planus Lumbar stenosis with neurogenic claudication Nocturnal hypoxia Pulmonary nodule Surgical History S/P cataract surgery S/P lumbar fusion Status post hysterectomy 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 Family History Mother Diabetes Lung cancer Aunt Breast cancer Brother Bladder cancer Social History Preferred Language: [place] Leone[place] Communication Ability: Effective Visual Impairment: No Limitations Hearing Ability: Normal Imaging Engineer Required: No marital status: Current Living Situation: Family current occupational status: other Feels Safe at Home: Yes Smoking Status: Former smoker Tobacco Type: cigarettes ; Age Quit Using Tobacco: 71 ; packs per day: 2 ; Hx Alcohol Use: No Hx Substance Use: No caffeine: Yes Dental Care, Regularly: No Physical Activity Frequency: Does not Exercise Seatbelt Use: always Sunscreen Use: No Review of Systems See HPI for pertinent positives & negatives. and A total of 10 systems reviewed and were otherwise negative Physical Exam Vital Signs Vital Signs - 24 hr 03/07/19 14:41 03/07/19 14:45 03/07/19 15:03 Temperature 36.8 C Temperature Source Oral Pulse Rate 100 H Pulse Rate [Finger] Pulse Rate from SpO2 Sensor Pulse Rhythm [Finger] Pulse Strength [Finger] Respiratory Rate 26 H Respiratory Effort / Characteristics Pursed Lip Pursed Lip Respiratory Depth Respiratory Pattern Blood Pressure 188/103 H Blood Pressure [Left Arm] Blood Pressure Mean 131 Blood Pressure Mean [Left Arm] Blood Pressure Position Sitting Blood Pressure Position [Left Arm] Pulse Oximetry 90 90 Oxygen Delivery Method Room Air Room Air Oxygen Flow Rate Sepsis Recent Fever Within 48 Hours No Sepsis New/Unexplained Change in Mental Status No Sepsis Action Taken by Nursing No Action Required 03/07/19 15:13 03/07/19 15:20 03/07/19 15:30 Temperature Temperature Source Pulse Rate 84 88 92 H Pulse Rate [Finger] Pulse Rate from SpO2 Sensor 81 88 92 H Pulse Rhythm [Finger] Pulse Strength [Finger] Respiratory Rate 14 15 18 Respiratory Effort / Characteristics Respiratory Depth Respiratory Pattern Blood Pressure 163/102 H 174/117 H Blood Pressure [Left Arm] Blood Pressure Mean 105 149 Blood Pressure Mean [Left Arm] Blood Pressure Position Blood Pressure Position [Left Arm] Pulse Oximetry 90 92 91 Oxygen Delivery Method Oxygen Flow Rate Sepsis Recent Fever Within 48 Hours Sepsis New/Unexplained Change in Mental Status Sepsis Action Taken by Nursing 03/07/19 15:31 03/07/19 15:52 03/07/19 16:00 Temperature Temperature Source Pulse Rate 91 H 92 H Pulse Rate [Finger] 87 Pulse Rate from SpO2 Sensor 91 H 84 Pulse Rhythm [Finger] Pulse Strength [Finger] Respiratory Rate 18 20 14 Respiratory Effort / Characteristics Non-Labored Spontaneous Respiratory Depth Respiratory Pattern Blood Pressure Blood Pressure [Left Arm] Blood Pressure Mean Blood Pressure Mean [Left Arm] Blood Pressure Position Blood Pressure Position [Left Arm] Pulse Oximetry 93 95 100 Oxygen Delivery Method Nasal Cannula Oxygen Flow Rate 2 Sepsis Recent Fever Within 48 Hours Sepsis New/Unexplained Change in Mental Status Sepsis Action Taken by Nursing 03/07/19 16:30 03/07/19 16:31 03/07/19 17:00 Temperature Temperature Source Pulse Rate 88 93 H 115 H Pulse Rate [Finger] Pulse Rate from SpO2 Sensor 90 91 H Pulse Rhythm [Finger] Pulse Strength [Finger] Respiratory Rate 15 16 14 Respiratory Effort / Characteristics Respiratory Depth Respiratory Pattern Blood Pressure 176/107 H Blood Pressure [Left Arm] Blood Pressure Mean 133 Blood Pressure Mean [Left Arm] Blood Pressure Position Blood Pressure Position [Left Arm] Pulse Oximetry 93 93 Oxygen Delivery Method Oxygen Flow Rate Sepsis Recent Fever Within 48 Hours Sepsis New/Unexplained Change in Mental Status Sepsis Action Taken by Nursing 03/07/19 17:17 03/07/19 17:18 03/07/19 17:27 Temperature Temperature Source Pulse Rate Pulse Rate [Finger] 101 H 94 H Pulse Rate from SpO2 Sensor 99 H Pulse Rhythm [Finger] Regular Pulse Strength [Finger] Normal Respiratory Rate 22 16 14 Respiratory Effort / Characteristics Non-Labored Spontaneous Non-Labored Spontaneous Respiratory Depth Normal Respiratory Pattern Regular Blood Pressure 189/100 H Blood Pressure [Left Arm] 189/100 H Blood Pressure Mean 165 Blood Pressure Mean [Left Arm] 129 Blood Pressure Position Blood Pressure Position [Left Arm] Sitting Pulse Oximetry 85 L 90 94 Oxygen Delivery Method Room Air Nasal Cannula Oxygen Flow Rate 2 Sepsis Recent Fever Within 48 Hours Sepsis New/Unexplained Change in Mental Status Sepsis Action Taken by Nursing 03/07/19 17:30 Temperature Temperature Source Pulse Rate 97 H Pulse Rate [Finger] Pulse Rate from SpO2 Sensor 97 H Pulse Rhythm [Finger] Pulse Strength [Finger] Respiratory Rate 16 Respiratory Effort / Characteristics Respiratory Depth Respiratory Pattern Blood Pressure Blood Pressure [Left Arm] Blood Pressure Mean Blood Pressure Mean [Left Arm] Blood Pressure Position Blood Pressure Position [Left Arm] Pulse Oximetry 99 Oxygen Delivery Method Oxygen Flow Rate Sepsis Recent Fever Within 48 Hours Sepsis New/Unexplained Change in Mental Status Sepsis Action Taken by Nursing GENERAL: Well nourished, Mildly tachypneic. EYE EXAM: Normal conjunctiva. PERRL, no anisocoria and EOM's grossly intact w/o pain. OROPHARYNX: Moist mucus membranes. Grossly normal dentition. NECK: Supple, no nuchal rigidity, no adenopathy, non-tender. No signs of meningismus. LUNGS: Trace wheezes throughout with mild tachypnea. Normal chest wall mechanics. HEART: NSR, no MRG. ABDOMEN: Abdomen soft, non-tender, normo-active bowel sounds, no masses, no rebound or guarding. BACK: No CVA TTP. SKIN: No rashes and no bruising. UPPER EXTREMITIES: Upper extremities are grossly normal. LOWER EXTREMITIES: Left greater than right lower extremity swelling. No calf pain or erythema. NEURO EXAM: A&O x3, cranial nerves II-XII grossly intact, normal speech, moves all 4 extremities on command w/o issue. Course Course 1527: Past medical records reviewed. The patient was evaluated in room A11B, and a complete history and physical examination were performed. The patient was placed on a quality assurance monitor. 1637: I reevaluated the patient and her condition has not improved. She is going to try an ambulatory trial. 170: I reassessed the patient and she did not do well during the ambulatory trial. We discussed the treatment plan and she was agreeable. 1718: I spoke to Dr. Chao [facility] Hospitalist about the patient's case and she agreed to accept the patient for further evaluation. Consultations Consultation #1: I spoke to Dr. Chao [facility] Hospitalist about the patient's case and she agreed to accept the patient for further evaluation. Time: 17:18 Administered Medications Discontinued Medications Albuterol (Duoneb) 6 ml INH NOW STA Stop: 03/07/19 15:34 Last Admin: 03/07/19 15:50 Dose: 6 ml Documented by: [id number] Albuterol (Duoneb) 12 ml NEB ONE ONE Stop: 03/07/19 17:10 Last Admin: 03/07/19 17:24 Dose: 12 ml Documented by: [id number] Azithromycin (Zithromax) 500 mg PO NOW ONE Stop: 03/07/19 17:10 Last Admin: 03/07/19 17:14 Dose: 500 mg Documented by: [id number] Benzonatate (Tessalon Perle) 100 mg PO NOW ONE Stop: 03/07/19 17:10 Last Admin: 03/07/19 17:14 Dose: 100 mg Documented by: [id number] Magnesium Sulfate/Dextrose (Magnesium Sulfate / D5w) 1 gm in 100 mls @ 100 mls/hr IV ONE ONE Stop: 03/07/19 16:32 Last Infusion: 03/07/19 17:11 Dose: 0 mls/hr Documented by: [id number] Admin: 03/07/19 16:05 Dose: 100 mls/hr Documented by: [id number] Magnesium Sulfate/Dextrose (Magnesium Sulfate / D5w) 1 gm in 100 mls @ 100 mls/hr IV ONE ONE Stop: 03/07/19 18:08 Last Infusion: 03/07/19 18:25 Dose: 0 mls/hr Documented by: [id number] Admin: 03/07/19 17:14 Dose: 100 mls/hr Documented by: [id number] Sodium Chloride (Nss 1000ml) 500 mls @ 999 mls/hr IV .Q31M ONE Stop: 03/07/19 17:51 Last Admin: 03/07/19 18:24 Dose: Not Given Documented by: [id number] Methylprednisolone (Solumedrol) 60 mg IV NOW STA Stop: 03/07/19 15:34 Last Admin: 03/07/19 16:05 Dose: 60 mg Documented by: [id number] Medical Decision Making Differential Diagnosis Differential diagnoses includes but is not limited to pneumonia, bronchitis, COPD/Asthma exacerbation, pneumothorax, pulmonary embolism, congestive heart failure, acute coronary syndrome, amongst others. Medical Records Attestation: I reviewed the patient's medical records. Home Medications Current Medication List: was personally reviewed by me Laboratory Data Attestation: I reviewed the patient's lab results. Result diagrams: 03/07/19 15:42 03/07/19 15:42 Lab Results 03/07/19 03/07/19 03/07/19 Range/Units 15:42 15:42 15:42 WBC 8.38 (4.8-10.8) K/uL RBC 4.86 (4.2-5.4) M/uL Hgb 12.8 (12.0-16.0) g/dL Hct 41.7 (37-47) % MCV 85.8 (80-100) fL MCH 26.3 (25-34) pg MCHC 30.7 L (32-36) g/dL RDW Std Deviation 53.7 H (36.4-46.3) fL RDW Coeff of Lyssa 17.0 H (11.5-14.5) % Plt Count 316 (130-400) K/uL MPV 9.0 (7.4-10.4) fL Immature Gran % (Auto) 0.1 % Neut % (Auto) 56.0 % Lymph % (Auto) 29.2 % [place] % (Auto) 7.9 % Eos % (Auto) 6.3 % Baso % (Auto) 0.5 % Immature Gran # (Auto) 0.01 (0.00-0.02) K/uL Neut # (Auto) 4.69 (1.4-6.5) K/uL Lymph # (Auto) 2.45 (1.2-3.4) K/uL [place] # (Auto) 0.66 H (0.11-0.59) K/uL Eos # (Auto) 0.53 H (0-0.5) K/uL Baso # (Auto) 0.04 (0-0.2) K/uL PT 10.3 (9.0-12.0) Seconds INR 1.0 (0.9-1.1) APTT 24.2 (21.0-31.0) Seconds PTT Ratio 0.9 Sodium 139 (136-145) mmol/L Potassium 3.6 (3.5-5.1) mmol/L Chloride 103 (98-107) mmol/L Carbon Dioxide 30 (21-32) mmol/L Anion Gap 6.0 (3-11) BUN 12 (7-18) mg/dl Creatinine 0.85 (0.6-1.2) mg/dl Est Cr Clr Drug Dosing 75.3 ml/min Est GFR ( Amer) 79.3 Est GFR (Non-Af Amer) 68.5 BUN/Creatinine Ratio 13.6 (10-20) Glucose 114 H (70-99) mg/dl Calcium 8.6 (8.5-10.1) mg/dl Total Bilirubin 0.2 (0.2-1) mg/dl AST 15 (15-37) U/L ALT 23 (12-78) U/L Alkaline Phosphatase 82 (45-117) U/L Troponin I 0.025 (0-0.045) ng/ml NT-Pro-B Natriuret Pep 352 (0-900) pg/ml Total Protein 6.7 (6.4-8.2) gm/dl Albumin 2.9 L (3.4-5.0) gm/dl Globulin 3.8 (2.5-4.0) gm/dl Albumin/Globulin Ratio 0.8 L (0.9-2) Urine Color Urine Appearance (Clear) Urine pH (4.5-7.5) Ur Specific Riley (1.000-1.030) Urine Protein (Negative) Urine Glucose (UA) (Negative) Urine Ketones (Negative) Urine Blood (Negative) Urine Nitrite (Negative) Urine Bilirubin (Negative) Urine Urobilinogen (Negative) Ur Leukocyte Esterase (Negative) Urine WBC (Auto) (0-5) /hpf Urine RBC (Auto) (0-4) /hpf U Hyaline Cast (Auto) (0-5) /lpf U Epithel Cells (Auto) (0-5) /lpf Urine Bacteria (Auto) (Negative) Influenza Type A (PCR) (Neg) Influenza Type B (PCR) (Neg) 03/07/19 03/07/19 Range/Units 16:10 16:55 WBC (4.8-10.8) K/uL RBC (4.2-5.4) M/uL Hgb (12.0-16.0) g/dL Hct (37-47) % MCV (80-100) fL MCH (25-34) pg MCHC (32-36) g/dL RDW Std Deviation (36.4-46.3) fL RDW Coeff of Lyssa (11.5-14.5) % Plt Count (130-400) K/uL MPV (7.4-10.4) fL Immature Gran % (Auto) % Neut % (Auto) % Lymph % (Auto) % [place] % (Auto) % Eos % (Auto) % Baso % (Auto) % Immature Gran # (Auto) (0.00-0.02) K/uL Neut # (Auto) (1.4-6.5) K/uL Lymph # (Auto) (1.2-3.4) K/uL [place] # (Auto) (0.11-0.59) K/uL Eos # (Auto) (0-0.5) K/uL Baso # (Auto) (0-0.2) K/uL PT (9.0-12.0) Seconds INR (0.9-1.1) APTT (21.0-31.0) Seconds PTT Ratio Sodium (136-145) mmol/L Potassium (3.5-5.1) mmol/L Chloride (98-107) mmol/L Carbon Dioxide (21-32) mmol/L Anion Gap (3-11) BUN (7-18) mg/dl Creatinine (0.6-1.2) mg/dl Est Cr Clr Drug Dosing ml/min Est GFR ( Amer) Est GFR (Non-Af Amer) BUN/Creatinine Ratio (10-20) Glucose (70-99) mg/dl Calcium (8.5-10.1) mg/dl Total Bilirubin (0.2-1) mg/dl AST (15-37) U/L ALT (12-78) U/L Alkaline Phosphatase (45-117) U/L Troponin I (0-0.045) ng/ml NT-Pro-B Natriuret Pep (0-900) pg/ml Total Protein (6.4-8.2) gm/dl Albumin (3.4-5.0) gm/dl Globulin (2.5-4.0) gm/dl Albumin/Globulin Ratio (0.9-2) Urine Color Yellow Urine Appearance Clear (Clear) Urine pH 7.0 (4.5-7.5) Ur Specific Riley 1.010 (1.000-1.030) Urine Protein Negative (Negative) Urine Glucose (UA) Negative (Negative) Urine Ketones Negative (Negative) Urine Blood Negative (Negative) Urine Nitrite Negative (Negative) Urine Bilirubin Negative (Negative) Urine Urobilinogen Negative (Negative) Ur Leukocyte Esterase Trace H (Negative) Urine WBC (Auto) 1-5 (0-5) /hpf Urine RBC (Auto) 0-4 (0-4) /hpf U Hyaline Cast (Auto) 1-5 (0-5) /lpf U Epithel Cells (Auto) >30 H (0-5) /lpf Urine Bacteria (Auto) Negative (Negative) Influenza Type A (PCR) Neg for Influ A (Neg) Influenza Type B (PCR) Neg for Influ B (Neg) Imaging Data Radiologist's Impression: Radiology results as stated below per my review and the radiologist's interpretation: XR chest 1V portable CLINICAL HISTORY: Dyspnea COMPARISON STUDY: June 08, 2018 FINDINGS: The heart is borderline enlarged. Is evidence for underlying emphysema with chronic basilar interstitial thickening. There is no acute lobar consolidation. There are no pleural effusions. There is no overt failure.[ IMPRESSION: Emphysema with chronic parenchymal changes similar to the preceding study. No acute findings Electronically signed by: Daryl Kowalski M.D. 03/07/2019 3:53 PM ECG Data Attestation: I personally reviewed and interpreted this ECG as follows: Indication: + SOB/dyspnea Rate (beats per minute): 91 Rhythm: + normal sinus ECG Intervals/blocks: + Normal QRS, + Normal QT, + Normal ID and + Normal QT-c ECG Browder: + Normal ECG ST segments: no ST depression and no ST elevation ECG Findings: no PACs and no PVCs Blood Pressure Blood Pressure Findings: Elevated blood pressure Blood Pressure Disposition: further management by hospitalist OLIVIA Puentes The patient is a 73 year old female w/ PMHx of COPD, asthma, AVN, HTN, and lumbar stenosis who presents to the ED w/ CC of constant shortness of breath that has been an ongoing issue for some time but became acute worse over the past week. Patient was seen and evaluated the bedside. The patient did present with concern for shortness of breath. The patient does on occasion use oxygen at home but the patient states that her shortness of breath is worsened over the last week. The patient does not complain of any orthopnea but does complain of dyspnea on exertion. No prior history of DVT or PE. The patient does have chronic bilateral lower extremity left greater than right due to a prior knee procedure which was not done within the last 6 weeks. Patient does not have any calf pain. Negative Homans sign. The patient does have trace wheezes throughout. Patient did have blood work completed along with an EKG troponin chest x-ray. Patient's history and physical exam not consistent with aneurysm or dissection. I did consider the possibility of PE but I believe her hypoxia is more related to her wheezing and associated COPD. The patient also did co mplain of some productive sputum. Patient did receive steroids duo nebs and magnesium along with IV fluids. The patient's blood work shows a normal white count H&H. Kidney function is unremarkable. The patient flu negative. Chest x-ray just shows chronic findings but nothing acute. No ST segment changes on EKG with a negative troponin. Believe ACS to be less likely. Upon reassessment the patient states that she does not feel improved. The patient did undergo an ambulatory trial but only after walking the bathroom the patient was tripoding and required supplemental oxygen. At rest she does improve. Given this concern I believe the patient would benefit from further inpatient treatment. Patient is not stridulous do not believe she has a deep neck space infection. Patient is not meningitic. I did speak the on-call hospitalist agreed to further evaluate treat the patient. IV fluids, magnesium, and an hour-long DuoNeb's were ordered. Impression & Plan COPD exacerbation, Respiratory failure with hypoxia Discharge Plan Visit Data Chief Complaint: Shortness of Breath/Dyspnea Stated Complaint: BREATHING ED Provider: Rajinder Tellez Discharge Problem: COPD exacerbation, Respiratory failure with hypoxia Patient Disposition: Being Evaluated by Hospitalist Forms Stand Alone Forms: My [facility] Prescriptions Prescriptions: No Action albuterol sulfate [Ventolin HFA] 90 mcg/actuation HFA aerosol inhaler 1 - 2 puff Inhalation .COMPLEX PRN (Reason: Shortness Of Breath Or Wheezing) Qty: 18 RF: 1 losartan [Cozaar] 50 mg tablet 50 mg PO BID Qty: 180 RF: 1 ipratropium-albuterol 0.5 mg-3 mg(2.5 mg base)/3 mL solution for nebulization 1 dose Inhalation Q4 PRN (Reason: COUGH/WHEEZE) RF: 0 ascorbic acid (vitamin C) [Vitamin C] 500 mg Tablet 500 mg PO QAM RF: 0 Anoro Ellipta 62.5-25 mcg/actuation blister with device 1 puff Inhalation QAM RF: 0 ibuprofen 200 mg Tablet 400 mg PO Q6 PRN (Reason: Pain) RF: 0 furosemide [Lasix] 20 mg tablet 20 mg PO DAILY PRN (Reason: Edema) RF: 0 Referrals Referrals: Becca Araujo DO [Primary Care Provider] - Discharge Problem: Respiratory failure with hypoxia Qualifiers: Chronicity: acute on chronic Qualified Code(s): J96.21 - Acute and chronic respiratory failure with hypoxia The scribe's documentation has been prepared under my direction and personally reviewed by me in its entirety. I confirm that the note above accurately reflects all work, treatment, procedures, and medical decision making performed by me.
--- NOTE | 2019-03-07 18:45 | History & Physical Report ---
Date of Service March 07, 2019 Assessment & Plan (1) Asthma: (2) COPD exacerbation: - Admit to med surg with tele - CXR reviewed showing emphysema, no pleural effusions or pulmonary edema - IV Solu-Medrol 60 mg in ER, continue 40 mg IV Q12H - azithromycin for antiinflammatory properties, unlikely infectious as afebrile and no WBC. Check sputum culture if produces expectorant - Requiring 2L via NC, patient reports has oxygen at home however does not use this very often - patient currently receiving nebulizer treatment, continue levalbuterol nebs Q4H and Q2H prn with tachycardia - Incentive spirometry, flutter, mucinex (3) Respiratory failure with hypoxia: O2 sats =87% upon arrival, currently maintaining 2 L, titrate for O2 sats of 92 to 94% (4) Pulmonary nodule: -History of such, follows with pulmonology in [place], patient notes that she would like to switch -CM to assist with pulmonary follow-up with [facility] upon discharge -Recent CT of chest completed in Dec 2018 showed no acute changes per outpatient pulm notes. She was placed on Trelegy Ellipta and Stiolto was discontinued. (5) Hypertension: -Continue losartan 50 mg BID, order Lasix to 20 mg IV now with significant BLE edema and poor compliance with PO lasix prior to arrival. -Check lipids with am labs (6) Lower extremity edema: - Pt has been instructed per her PCP to increase Lasix to 20 mg PO daily however she only takes this about 3x/wk d/t convenience - IV Lasix 20 mg now, resume 20 mg PO martha daily tomorrow - on dc make scheduled vs prn. - Check venous Doppler to r/o dvt - Check arterial Doppler as she was scheduled tomorrow as outpt - Check 2D echo as this was also scheduled tomorrow as outpt (7) Lumbar stenosis with neurogenic claudication: - Hx of lumbar surgery with hardware in place in Dec 2017 (8) AVN (avascular necrosis of bone): - Hx of such, follows with ortho as outpatient. - Holding ibuprofen while on steroids, may use tylenol for pain relief (9) Lichen planus: - Stable (10) Anxiety: - Stable (11) Obesity (BMI 30.0-34.9): - Diet and exercise to be encouraged upon discharge - diet (12) Hyperglycemia: - Glucose elevated upon admission, check A1C with am labs - HH diet for now (13) DVT prophylaxis: - teds, lovenox 40 mg subq CODE: Full Disp: From home, son lives with her, CM to assist with dc planning, needs pulm follow up with [facility] as new pt. History of Present Illness Primary Care Provider: Becca Araujo, This is a 73 yo F with PMHx of COPD, asthma, pulmonary nodule, history of smoking 2 to 4 packs/day since age 19, quit 2 years ago, hypertension, BLE, AVN, who presents with acute worsening shortness of breath. Patient notes that her symptoms have been coming on x1 week. She has been using at home albuterol and nebulizers more routinely than normal she reports bright green expectorant, sweats but no objective fevers or chills. She reports that she follows with pulmonology as an outpatient in [place], but may prefer to switch pending pulmonology consultation here at [facility]. She has recently been in to see her PCP, Dr. araujo, who was performing work-up regarding BLE edema, left greater than right. We will check an echocardiogram during this hospital stay as well as lower extremity arterial and venous Dopplers. Patient notes that she has been prescribed losartan 50 mg BID but has not begun taking it twice daily, she also is supposed to take Lasix on a daily basis however does not because she does not have a bathroom on her first floor and has difficulty going up and down her stairs in her home. Patient admits that she is "very noncompliant". She denies any other acute complaints. Allergies Allergy/AdvReac Type Severity Reaction Status Date / Time adhesive Allergy Unknown ITCHY Verified 03/07/19 16:00 Penicillins Allergy Unknown HIVES IN Verified 03/07/19 16:00 MOUTH tramadol Allergy Unknown RASH MOUTH, Verified 03/07/19 16:00 oxycodone AdvReac Unknown NAUSEA,ANGRY Verified 03/07/19 16:00 REACTION Home Medications Home Medications Medication Instructions Recorded Confirmed Type ascorbic acid (vitamin C) [Vitamin 500 mg PO QAM 06/08/18 03/07/19 History C] ipratropium-albuterol 1 dose INHALATION Q4 PRN 06/08/18 03/07/19 History umeclidinium-vilanterol [Anoro 1 puff INHALATION QAM 06/08/18 03/07/19 History Ellipta] ibuprofen 400 mg PO Q6 PRN 08/11/18 03/07/19 History albuterol sulfate 90 mcg/actuation 1 - 2 puff INHALATION .COMPLEX PRN 12/05/18 03/07/19 Rx aerosol inhaler #18 gm losartan 50 mg tablet 50 mg PO BID #180 tab 02/08/19 03/07/19 Rx furosemide [Lasix] 20 mg PO DAILY PRN 03/07/19 03/07/19 History Past Med/Surg History Medical History Anxiety Asthma AVN (avascular necrosis of bone) R hip COPD (chronic obstructive pulmonary disease) Hypertension Lichen planus Lumbar stenosis with neurogenic claudication Nocturnal hypoxia Pulmonary nodule Surgical History S/P cataract surgery S/P lumbar fusion Status post hysterectomy 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 Family History Mother Diabetes Lung cancer Aunt Breast cancer Brother Bladder cancer Social History Preferred Language: [place] Communication Ability: Effective Visual Impairment: No Limitations Hearing Ability: Normal Environmental Technical Officer Required: No marital status: Current Living Situation: Family current occupational status: other Feels Safe at Home: Yes Smoking Status: Former smoker Tobacco Type: cigarettes ; Age Quit Using Tobacco: 71 ; packs per day: 2 ; Hx Alcohol Use: No Hx Substance Use: No caffeine: Yes Dental Care, Regularly: No Physical Activity Frequency: Does not Exercise Seatbelt Use: always Sunscreen Use: No Review of Systems Review of Systems: Constitutional: No fever, sweats or chills Eyes: No diplopia, no worsening or blurred vision ENT: normal hearing, no trouble swallowing Respiratory: + Cough, sputum production with green mucous, +dyspnea at rest and with minimal exertion Cardiovascular: No chest pain, + tightness, no palpitations Abdomen: No pain, nausea, vomiting, diarrhea or constipation Musculoskeletal: + chronic low back and hip joint pain, no calf pain, + swelling BLE, left greater than right Neurologic: No weakness, numbness/tingling, or balance problems Psychiatric: No anxiety or depression Skin: No rash or itch Physical Exam Physical Exam: General: awake, alert, no apparent distress Head: Normocephalic, atraumatic ENT: PERRL, EOMI, no pharyngeal exudate, mucous membranes moist Chest: + Diminished breath sounds throughout, + exp wheeze worse in the right vázquez, + on nebulizer, no crackles. Cardiac: Sinus tach, no murmur, no JVD, normal peripheral pulses, good capillary refill Abdominal: NABS x 4 quadrants, soft, nondistended, nontender to palpation, no rebound, guarding or tenderness Extremities: 2+ peripheral edema, left greater than right up to knees, + nodule over right skin which is painful to palpation, faint erythema over ankles, calfs nontender to palpation Psych: Normal mood and affect Neuro: AAO x 3, strength intact bilaterally and rated 5/5, no motor deficits, speech is clear, no peripheral sensory deficits Skin: no rash or erythema Results & Data Vital Signs (Past 12 Hours) Vital Signs Temp Pulse Pulse Resp BP BP Pulse Ox 03/07/19 17:30 97 H 16 99 03/07/19 17:27 94 H 14 94 03/07/19 17:18 16 189/100 H 90 03/07/19 17:17 101 H 22 189/100 H 85 L 03/07/19 17:00 115 H 14 03/07/19 16:31 93 H 16 93 03/07/19 16:30 88 15 176/107 H 93 03/07/19 16:00 92 H 14 100 03/07/19 15:52 87 20 95 03/07/19 15:31 91 H 18 93 03/07/19 15:30 92 H 18 174/117 H 91 03/07/19 15:20 88 15 92 03/07/19 15:13 84 14 163/102 H 90 03/07/19 15:03 90 03/07/19 14:41 36.8 C 100 H 26 H 188/103 H 90 Diagnostic Findings XR chest 1V portable CLINICAL HISTORY: Dyspnea COMPARISON STUDY: June 08, 2018 FINDINGS: The heart is borderline enlarged. Is evidence for underlying emphysema with chronic basilar interstitial thickening. There is no acute lobar consolidation. There are no pleural effusions. There is no overt failure.[ IMPRESSION: Emphysema with chronic parenchymal changes similar to the preceding study. No acute findings ECG Additional Comments: 07-MAR-2019 15:43:53 [facility]-EDSTAT ROUTINE RETRIEVAL Normal sinus rhythm Normal ECG When compared with ECG of 08-JUN-2018 15:01, Fusion complexes are no longer Present Confirmed by Savage Diallo ([id number]) on 03/07/2019 6:07:02 PM 25mm/s 10mm/mV 150Hz 9.0.9 12SL 241 KRISTIE: 3 Referred by: REFERRED SELF Confirmed By: Savage Diallo Vent. rate 91 BPM OH interval 166 ms QRS duration 112 ms QT/QTc 388/477 ms P-R-T axes 77 6 80 Code Status & VTE Plan Code Status Full code VTE Prophylaxis Plan VTE Prophylaxis will be ordered: Yes Supervising Physician Co-Signing Physician Notes Patient seen and examined, chart reviewed, case discussed with PAMELA Whitmore and I agree with her assessment and plan as documented above. Briefly, patient is a 73yo C female presenting with COPD exacerbation possibly secondary to medication noncompliance On physical exam she is afebrile, HD stable, mildly tachycardic. Breathing comfortably - finishing an hour long nebulizer treatment Gen - speaking in complete sentences, NAD Skin - intact HEENT - NC/AT, PERRL, MMM, neck supple Heart - +S1/S2, regular, ,tachycardic Lungs - diminished breath sounds bilaterally, no rales/rhonchi/wheezes Abd - +BS, soft, ,NT/ND Ext - no edema Labs and images reviewed. CXR and EKG unremarkable Assessment/Plan - 73yo C female presenting with COPD exacerbation -Admit to medicine -Solumedrol 40mg IV BID, Doppler/Echo -Remainder of plan as above PG Care Time/CCT Total # of Minutes Spent Total Time Spent with Patient: Total time spent is greater than 50% in coordination of care (as documented) at patient's floor/unit and/or counseling patient: (1) Respiratory failure with hypoxia Chronicity: acute on chronic Qualified Code(s): J96.21 - Acute and chronic respiratory failure with hypoxia
[2019-03-07] MEDS ORDERED: FUROSEMIDE 40 MG/4 ML VIAL IV STA (18:59)
[2019-03-07] MEDS ORDERED: ACETAMINOPHEN 325 MG TAB PO PRN (20:41)
[2019-03-07] MEDS ORDERED: ONDANSETRON INJ 2 MG/ML 2 ML VIAL IV PRN (20:41)
[2019-03-07] MEDS: ALBUT/IPRATROP 3MG/0.5MG NEB 3 ML VIAL NEB SCH (21:22)
[2019-03-07] MEDS: methylPREDNISolone 40 MG in SYRINGE 0 ML IV SCH (23:05)
[2019-03-07] MEDS: guaiFENesin 600 MG TABCR PO SCH (23:05)
[2019-03-07] MEDS: LOSARTAN POTASSIUM 50 MG TAB PO SCH (23:05)
[2019-03-07] MEDS ORDERED: LEVALBUTEROL HCL 1.25 MG/3 ML NEB NEB PRN (23:55)
[2019-03-08] MEDS: ALBUT/IPRATROP 3MG/0.5MG NEB 3 ML VIAL NEB SCH ×7 (00:18→23:31)
[2019-03-08] MEDS: LEVALBUTEROL 1.25MG/0.5ML NEB NEB SCH ×2 (00:34→07:48)
--- NOTE | 2019-03-08 06:30 | Ultrasound Report ---
US venous doppler LE bilateral CLINICAL HISTORY: Bilateral leg swelling COMPARISON STUDY: 06/08/2018 FINDINGS: Real-time and color flow Doppler imaging were performed. Flow was seen within the femoral, popliteal and calf veins with no intraluminal thrombus demonstrated. The saphenous vein is patent. IMPRESSION: No evidence of deep venous thrombosis. Electronically signed by: Daryl Kowalski M.D. 03/08/2019 6:29 AM
--- NOTE | 2019-03-08 07:02 | Ultrasound Report ---
US arterial duplex LE BI HISTORY: 73 years-old Female Edema of BLE, worse in left than right, assess PVD acute edema of the b ilateral lower extremities COMPARISON: Duplex venous Doppler study of same day TECHNIQUE: Multiple real-time sonographic images of the bilateral lower extremity arterial structures were obtained assessing grayscale appearance, color and spectral flow FINDINGS: RIGHT: Mostly mild calcified plaque is noted throughout the right lower extremity arteries. Biphasic wavefor ms are noted within the dorsalis pedis artery. Otherwise, triphasic waveforms are noted throughout th e right lower extremity. No arterial occlusion or significantly elevated peak systolic velocities to suggest high-grade stenosis. LEFT: Mostly mild calcified plaque is noted throughout the left lower extremity arteries. Phasic waveforms are noted within the dorsalis pedis artery. Otherwise, triphasic waveforms are noted throughout the l eft lower extremity. No arterial occlusion or significantly elevated peak systolic velocities to sugg est high-grade stenosis. ABIs were not obtained secondary to patient's IV catheter. IMPRESSION: 1. Biphasic waveforms of the bilateral dorsalis pedis arteries suggesting mild peripheral arterial di sease. 2. No arterial occlusion or significantly elevated peak systolic velocities to suggest high-grade tad nosis. The above report was generated using voice recognition software. It may contain grammatical, syntax o r spelling errors. Electronically signed by: Miguel Liu M.D. 03/08/2019 7:01 AM
[2019-03-08] MEDS: AZITHROMYCIN 250 MG TAB PO SCH (07:59)
[2019-03-08] MEDS: LOSARTAN POTASSIUM 50 MG TAB PO SCH ×2 (07:59→20:37)
[2019-03-08] MEDS: BENZONATATE 100 MG CAPSULE PO SCH ×3 (07:59→20:37)
[2019-03-08] MEDS: FUROSEMIDE 20 MG TAB PO SCH (08:00)
[2019-03-08] MEDS: ENOXAPARIN INJ 40 MG/0.4 ML SYR SQ SCH ×2 (08:00→08:07)
[2019-03-08] MEDS: guaiFENesin 600 MG TABCR PO SCH ×2 (08:00→20:37)
[2019-03-08] MEDS: ASCORBIC ACID 500 MG TAB PO SCH (08:00)
[2019-03-08] MEDS: methylPREDNISolone 40 MG in SYRINGE 0 ML IV SCH (08:06)
[2019-03-08 08:16] LABS: Hematocrit (blood only) 42.3 % (37-47); Hemoglobin 12.8 g/dL (12.0-16.0); Mean Corpuscular Hemoglobin 26.1 pg (25-34); Mean Corpuscular Hgb Conc 30.3 g/dL (32-36); Mean Corpuscular Volume 86.3 fL (80-100); Mean Platelet Volume 8.9 fL (7.4-10.4); Platelet Count 322 K/uL (130-400); RDW Coefficient of Variation 17.1 % (11.5-14.5); White Blood Count 9.24 K/uL (4.8-10.8)
[2019-03-08 08:22] LABS: Estimated Average Glucose 169 mg/dl; Hemoglobin A1C 7.5 % (4.5-5.6)
[2019-03-08 08:50] LABS: Albumin Level 2.9 gm/dl (3.4-5.0); BUN Creatinine Ratio 13.1 (10-20); Calcium 9.1 mg/dl (8.5-10.1); Creatinine Clr Calc Pharmacy 82.9 ml/min; Est GFR (Non-African American) 56.9
[2019-03-08 09:01] LABS: Albumin Globulin Ratio 0.7 (0.9-2); Bilirubin,Total 0.3 mg/dl (0.2-1); Thyroid Stimulating Hormone 0.449 uIu/ml (0.300-4.500); Total Protein 6.9 gm/dl (6.4-8.2)
--- NOTE | 2019-03-08 10:42 | Hospitalist Progress Note ---
Date of Service March 08, 2019 Assessment & Plan (1) Asthma: (2) COPD exacerbation: - CXR reviewed showing emphysema, no pleural effusions or pulmonary edema - change IV Solu-Medrol to po prednisone 40 mg - azithromycin for antiinflammatory properties, unlikely infectious as afebrile and no WBC. Check sputum culture if produces expectorant - Requiring 2L via [place], patient reports has oxygen at home however does not use this very often - continue nebs - Continue Incentive spirometry, flutter, mucinex (3) Respiratory failure with hypoxia: O2 sats =87% upon arrival, currently maintaining sats on 2 L (4) Hyperglycemia: (5) DM II (diabetes mellitus, type II), controlled: A1c 7.5, hyperglycemic this morning at 193 This is a new diagnosis for this patient. She is very resistant to initiating medications. We discussed the ramifications of untreated diabetes and meaning of A1c. Patient reports she has been eating lots of sweets lately ie cookies for breakfast, donuts for dinner. She has gained about 40 pounds. - consult glycemic pharmacist for assistance with insulin while on steroids - consult parent educator - will likely need to discharge with a new diabetic medication regimen such as metformin. Will need to reinforce importance of diabetes management with patient (6) Hyperlipidemia: Triglycerides 63 Total cholesterol 201 LDL 128, HDL 60 Patient does not take any medications for lipids but given A1c and LDL level, should consider. Discussed this with the patient and her cardiovascular risks, she does not want to start any medications for lipids at this time. Follow up with pcp (7) Pulmonary nodule: -History of such, follows with pulmonology in [place], patient notes that she would like to switch - to assist with pulmonary follow-up with [facility] upon discharge -Recent CT of chest completed in Dec 2018 showed no acute changes per outpatient pulm notes. She was placed on Trelegy Ellipta and Stiolto was discontinued. (8) Hypertension: - blood pressures above 200 systolically yesterday evening, now 150s/160s. No symptoms of hypertensive urgency -Continue losartan 50 mg BID - may need to consider adjusting home regimen with pcp for better control but will hold off on adjusting for now unless her pressures become very high again (9) Lower extremity edema: - Pt has been instructed per her PCP to increase Lasix to 20 mg PO daily however she only takes this about 3x/wk d/t convenience - given Lasix to 20 mg IV for significant BLE edema on arrival and poor compliance with PO lasix. - Venous doppler negative for dvt - Arterial Doppler - Biphasic waveforms of the bilateral dorsalis pedis arteries suggesting mild peripheral arterial disease, no significant occlusion or stenosis - Echo pending (10) Lumbar stenosis with neurogenic claudication: - Hx of lumbar surgery with hardware in place in Dec 2017 (11) AVN (avascular necrosis of bone): - Hx of such, follows with ortho as outpatient. - Holding ibuprofen while on steroids, may use tylenol for pain relief (12) Lichen planus: - Stable (13) Anxiety: - Stable (14) Obesity (BMI 30.0-34.9): - Diet and exercise to be encouraged upon discharge - DMII, HH diet (15) DVT prophylaxis: - teds, lovenox 40 mg subq CODE: Full Disp: From home, son lives with her, CM to assist with dc planning, needs pulm follow up with [facility] as new pt - has been seeing a provider in [place] but would like to switch Supervising Physician Co-Signing Physician Notes SALES ADMINISTRATOR Supervision note: I have personally seen and examined the patient and discussed and verified the pathak points of the history and physical along with the plan with CHITRA Maldonado with the following exceptions and/or additions: none Subjective Ms. Loera feels slightly better than at admission. She is requiring 2L O2, sob at times, normally she wears her home O2 very infrequently. She is coughing up small amounts of yellow/green sputum. No chest pain. No aches or chills. We did discuss multiple issues such as her cholesterol and A1c. Ms. Loera is very open that regimen adherence is difficult for her. Her diet is very high in refined carbohydrates, she does not like to take pills. ROS Constitutional: no chills, aches, sweats or fever Respiratory:see HPI Cardiac: no chest pain, palpitations, edema, orthopnea or lightheadedness GI: no abdominal pain, nausea, vomiting, diarrhea or constipation : no dysuria or hesitancy Extremities: no joint pain or weakness Skin: no rash All other systems reviewed and negative Physical Exam Physical Exam: General: no distress Eyes: normal inspection, PERLL Respiratory: chest non tender, clear to auscultation, normal breath sounds, no respiratory distress, no accessory muscle use Cardiac: regular rate and rhythm, no rub or gallop, no murmur, no edema, no jvd GI/: active bowel sounds, no abd pain or tenderness, soft, non distended Extremities: normal range of motion, normal strength, non tender Neuro/Psych: alert and oriented x 3, normal mood and affect Skin: normal color, dry Results & Data Vital Signs (Past 12 Hours) Vital Signs Temp Pulse Pulse Resp BP BP Pulse Ox 03/08/19 07:49 87 20 91 03/08/19 07:35 36.4 C L 105 H 20 159/81 H 91 03/08/19 07:08 103 H 03/08/19 03:47 37 C 122 H 20 164/82 H 90 03/08/19 00:29 112 H 18 95 03/08/19 00:00 121 H 03/07/19 23:00 36.7 C 118 H 20 158/90 H 90 PG Care Time/CCT Total # of Minutes Spent Total Time Spent with Patient: Total time spent is greater than 50% in coordination of care (as documented) at patient's floor/unit and/or counseling patient: (1) Respiratory failure with hypoxia Chronicity: acute on chronic Qualified Code(s): J96.21 - Acute and chronic respiratory failure with hypoxia
[2019-03-08] MEDS ORDERED: PHARMACY GLYCEMIC MGMT CONSULT PRN (11:23)
[2019-03-08] MEDS ORDERED: NovoLIN-N (NPH) PER UNIT CHARGE SQ ONE (12:00)
[2019-03-08] MEDS: INSULIN ASPART 100 UNITS/ML 3 ML PEN SC SCH ×3 (12:22→21:02)
--- NOTE | 2019-03-08 13:13 | Pharmacy Report ---
Glycemic Control Consultation - Date of Service March 08, 2019 - Scope Scope: Glycemic Pharmacist consulted by Talita Maldonado on 03/08/19 for glycemic control and to write orders per [facility] inpatient glycemic control protocol - Objective Weight: 102.2 kg Accuchecks BSG (last 24hrs): 03/07/19 03/08/19 03/08/19 15:42 07:58 11:54 Glucose 114 H 193 H POC Glucose 173 H Laboratory Data (last 24hrs): 03/07/19 03/08/19 15:42 07:58 Potassium 3.6 4.0 Carbon Dioxide 30 27 Anion Gap 6.0 8.0 Creatinine 0.85 0.99 Est Cr Clr Drug Dosing 75.3 82.9 HbA1c: Hemoglobin A1c 7.5 % (4.5-5.6) H 03/08/19 07:58 - Recent Pertinent Medications Outpatient Anti-diabetic Regimen: * Nil * A1c = 7.5 % 03/08/19 - Assessment & Plan Assessment & Plan: ASSESSMENT: * Pt is a 73yo F type II diabetic. PMHx consistent with COPD (unsure of GOLD classification), HLD, HTN, obesity. She p/w a COPD exacerbation. She received solumedrol 125mg IV x1 in the ED and solumedrol 40mg BID x2 doses. She is being converted to PO glucocorticoids starting tomorrow 03/09/19. She is ordered a diet. Today's A1C of 7.5% is likely close to her target A1C. Based on age and comorbidities she should be target ~7.0% or even 7.5%. PLAN FOR INPATIENT GLYCEMIC CONTROL: * Basal insulin * NPH 20 units X1 with lunch today * Bolus insulin * NovoLog per scale ACHS or Q6hrs while NPO * Goal Range: Low 110 mg/dL - High 140 mg/dL * Correction Factor: 25 mg/dL/unit * Nutritional / Prandial insulin per carb ratio of 1 unit per 8 grams CHO consumed * We will trial with Metformin XR 500mg with dinner while admitted. Spoke with attending, they do not anticipate any IV contrast dye. Given her macrovascular comorbidities, metformin would be a good agent for her. GFR looks to be in fine order. * Please note that the plan above was derived based on current level of insulin resistance and hospital stress. These recommendations are appropriate for inpatient admission only. Plan of care upon discharge will need to be reassessed to avoid potential outpatient hypo/hyperglycemia. Thank you.
[2019-03-08] MEDS: METFORMIN HCL ER 500 MG TABCR PO SCH (16:15)
[2019-03-09] MEDS: ALBUT/IPRATROP 3MG/0.5MG NEB 3 ML VIAL NEB SCH ×5 (03:03→19:05)
[2019-03-09 08:03] LABS: Hematocrit (blood only) 41.1 % (37-47); Hemoglobin 12.6 g/dL (12.0-16.0); Mean Corpuscular Hemoglobin 26.2 pg (25-34); Mean Corpuscular Hgb Conc 30.7 g/dL (32-36); Mean Corpuscular Volume 85.4 fL (80-100); Mean Platelet Volume 9.2 fL (7.4-10.4); Platelet Count 318 K/uL (130-400); RDW Coefficient of Variation 17.4 % (11.5-14.5); RDW Standard Deviation 54.2 fL (36.4-46.3); Red Blood Count 4.81 M/uL (4.2-5.4); White Blood Count 11.72 K/uL (4.8-10.8)
[2019-03-09] MEDS: BENZONATATE 100 MG CAPSULE PO SCH ×2 (08:24→13:15)
[2019-03-09] MEDS: LOSARTAN POTASSIUM 50 MG TAB PO SCH (08:25)
[2019-03-09] MEDS: ENOXAPARIN INJ 40 MG/0.4 ML SYR SQ SCH (08:25)
[2019-03-09] MEDS: ASCORBIC ACID 500 MG TAB PO SCH (08:25)
[2019-03-09] MEDS: FUROSEMIDE 20 MG TAB PO SCH (08:25)
[2019-03-09] MEDS: guaiFENesin 600 MG TABCR PO SCH (08:25)
[2019-03-09] MEDS: AZITHROMYCIN 250 MG TAB PO SCH (08:27)
[2019-03-09] MEDS: INSULIN ASPART 100 UNITS/ML 3 ML PEN SC SCH ×3 (08:29→17:32)
[2019-03-09 08:34] LABS: Albumin Level 2.9 gm/dl (3.4-5.0); BUN Creatinine Ratio 21.7 (10-20); Calcium 9.1 mg/dl (8.5-10.1); Creatinine Clr Calc Pharmacy 64.9 ml/min; Est GFR (African American) 66.8; Est GFR (Non-African American) 57.6; Potassium 4.1 mmol/L (3.5-5.1)
[2019-03-09 08:37] LABS: Albumin Globulin Ratio 0.8 (0.9-2); Bilirubin,Total 0.3 mg/dl (0.2-1); Globulin 3.7 gm/dl (2.5-4.0); Total Protein 6.6 gm/dl (6.4-8.2)
[2019-03-09] MEDS ORDERED: predniSONE 20 MG TAB PO SCH (09:00)
--- NOTE | 2019-03-09 16:59 | Discharge Summary ---
Date of Service March 09, 2019 Admission HPI Per Admitting Provider This is a 73 yo F with PMHx of COPD, asthma, pulmonary nodule, history of smoking 2 to 4 packs/day since age 19, quit 2 years ago, hypertension, BLE, AVN, who presents with acute worsening shortness of breath. Patient notes that her symptoms have been coming on x1 week. She has been using at home albuterol and nebulizers more routinely than normal she reports bright green expectorant, sweats but no objective fevers or chills. She reports that she follows with pulmonology as an outpatient in [place], but may prefer to switch pending pulmonology consultation here at [facility]. She has recently been in to see her PCP, Dr. araujo, who was performing work-up regarding BLE edema, left greater than right. We will check an echocardiogram during this hospital stay as well as lower extremity arterial and venous Dopplers. Patient notes that she has been prescribed losartan 50 mg BID but has not begun taking it twice daily, she also is supposed to take Lasix on a daily basis however does not because she does not have a bathroom on her first floor and has difficulty going up and down her stairs in her home. Patient admits that she is "very noncompliant". She denies any other acute complaints. Principal Diagnosis COPD Exacerbation Discharge Exam Constitutional WD/WN, vitals as above + obese Eyes + anicteric sclerae Neck trachea midline, no thyromegaly Respiratory normal respiratory effort; no labored breathing Auscultation: + diminished lung sounds (throughout but moving air); no crackles, no rhonchi and no wheezes Cardiovascular RRR, no murmur, no edema Chest (Breasts) Chest: normal inspection of chest Gastrointestinal (Abdomen) normal bowel sounds, soft, nontender, no hepatosplenomegaly Musculoskeletal Extremities: extremities normal to inspection; no cyanosis and no clubbing Skin no rashes, warm and dry Neurologic moves all extremities and awake; no focal motor deficits Psychiatric A+Ox3, euthymic affect Discharge Data Allergies Allergy/AdvReac Type Severity Reaction Status Date / Time adhesive Allergy Unknown ITCHY Verified 03/07/19 16:00 Penicillins Allergy Unknown HIVES IN Verified 03/07/19 16:00 MOUTH tramadol Allergy Unknown RASH MOUTH, Verified 03/07/19 16:00 oxycodone AdvReac Unknown NAUSEA,ANGRY Verified 03/07/19 16:00 REACTION Consultations None Procedures Performed Echocardiogram CXR Ordered Studies 03/07/19 20:41 US arterial duplex LE BI Routine US venous doppler LE BI Stat Hospital Course (1) COPD exacerbation: - CXR reviewed showing emphysema, no pleural effusions or pulmonary edema -Initially received IV Solu-Medrol and converted to po prednisone 40 mg-we will finish out taper upon discharge -Continue azithromycin for antiinflammatory properties, unlikely infectious as afebrile and no leukocytosis-finish out course upon discharge - Requiring 2L via NC, patient reports has oxygen at home however does not use this very often-she was able to be weaned off oxygen at rest but will need it with exertion-already has this at home - continue bronchodilators - Continue Incentive spirometry, flutter, mucinex -Much improved and stable for discharge (2) Asthma: (3) Respiratory failure with hypoxia: O2 sats =87% upon arrival, as above, improved at rest but still needs this with exertion Has oxygen at home (4) Hyperglycemia: - Glucose elevated upon admission, hemoglobin A1c in the diabetic range as below at 7.5% (5) DM II (diabetes mellitus, type II), controlled: A1c 7.5, with hyperglycemia here secondary to steroids This is a new diagnosis for this patient. She is very resistant to initiating medications. We discussed the ramifications of untreated diabetes and meaning of A1c. Patient reports she has been eating lots of sweets lately ie cookies for breakfast, donuts for dinner. She has gained about 40 pounds recently - consult glycemic pharmacist for assistance with insulin while on steroids- appreciated - consult parent educator-appreciated -Will discharge with metformin 500 mg daily and titrate up as needed with PCP -Needs ophthalmology visit, foot exam, and regular follow-up for diabetes (6) Hyperlipidemia: Triglycerides 63 Total cholesterol 201 LDL 128, HDL 60 Patient does not take any medications for lipids but given A1c and LDL level, should consider. Discussed this with the patient and her cardiovascular risks, she does not want to start any medications for lipids at this time. Follow up with pcp (7) Pulmonary nodule: -History of such, follows with pulmonology in [place], patient notes that she would like to switch to see pulmonology in [facility] to assist with pulmonary follow-up with [facility] upon discharge -Recent CT of chest completed in Dec 2018 showed no acute changes per outpatient pulm notes. She was placed on Trelegy Ellipta and Stiolto was discontinued. (8) Hypertension: - blood pressures above 200 systolically upon admission, now improved 150s/160s. No symptoms of hypertensive urgency -Continue losartan 50 mg BID - may need to consider adjusting home regimen with pcp for better control but will hold off on adjusting for now unless her pressures become very high again (9) Lower extremity edema: - Pt has been instructed per her PCP to increase Lasix to 20 mg PO daily however she only takes this about 3x/wk d/t convenience - given Lasix to 20 mg IV for significant BLE edema on arrival and poor compliance with PO lasix and had significant improvement here. - Venous doppler negative for dvt - Arterial Doppler - Biphasic waveforms of the bilateral dorsalis pedis arteries suggesting mild peripheral arterial disease, no significant occlusion or stenosis - Echo with preserved EF, no significant valvular issues (10) Lumbar stenosis with neurogenic claudication: - Hx of lumbar surgery with hardware in place in Dec 2017 (11) AVN (avascular necrosis of bone): - Hx of such, follows with ortho as outpatient. Tylenol as needed for pain (12) Lichen planus: - Stable (13) Anxiety: - Stable (14) Obesity (BMI 30.0-34.9): - Diet and exercise to be encouraged upon discharge - DMII, HH diet (15) DVT prophylaxis: - teds, lovenox 40 mg subq was provided CODE: Full Disp: From home, son lives with her, stable for discharge to home, needs pulm follow up with [facility] as new pt - has been seeing a provider in [place] but would like to switch Total Time Total Time Spent Total Time Spent (In Minutes): 35 minutes Total Time Includes: Examination of the Patient, Discharge Planning and Medication Reconciliation Discharge Plan Discharge Items Patient Disposition: Home - Self-Care Reason For Visit: COPD EXACERBATION Discharge Diagnosis: COPD Exacerbation Condition on Discharge: Fair Health Concerns: You have been hospitalized for an acute medical problem. During your stay at [facility], we have made an effort to correct the problem that brought you to the hospital while keeping you as comfortable as possible. Medications were used to bring your condition under control and your discharge instructions will include directions for any medications you should take after leaving the hospital. Please make sure you see your Primary Care Provider as part of your follow up plan. Activity: Resume your previous activity Bathing: No limitations Non-emergency contact: Primary Care Provider Call non-emergency contact if: you have any medication questions and your symptoms worsen Follow-up/Referrals: Becca Araujo, [Primary Care Provider] - 03/15/19 9:40 am (Please, follow up at Dr. Araujo's office on MondayMarch 15 at 9:40 am. *If you need to change this appointment, call the office at [phone].) Diet: Carb Consistent or DM2 Addtl Attending Provider Instructions: Finish out the course of prednisone taper and azithromycin for an antibiotic. Continue to use your home nebulizer and inhalers as prescribed. Your oxygen will need to be worn with any exertion at 2L, but you can remove it at rest. Continue follow up with Pulmonology. You were diagnosed with diabetes while you were here and this requires close follow up with your PCP. You were started on a medication called metformin and recommended to eat a low carbohydrate diet. Weight loss would be beneficial as well. Please follow up with Dr. Araujo as arranged for you. Pending Studies at Discharge: Yes (Final blood culture) Stand-Alone Forms: My [facility] Medications and DC Order Prescriptions: New azithromycin [Zithromax] 250 mg Tablet 250 mg PO QAM Qty: 3 RF: 0 losartan 100 mg tablet 100 mg PO DAILY Qty: 30 RF: 0 metformin 500 mg Tablet Extended Release 24 Hr 500 mg PO QDD Qty: 30 RF: 0 prednisone 10 mg tablet 40 mg PO DAILY Qty: 20 RF: 0 benzonatate [Tessalon Perles] 100 mg Capsule 200 mg PO TID PRN (Reason: cough) Qty: 20 RF: 0 guaifenesin [Mucinex] 600 mg Tablet Extended Release 12hr 1,200 mg PO Q12 Qty: 30 RF: 0 Continued albuterol sulfate [Ventolin HFA] 90 mcg/actuation HFA aerosol inhaler 1 - 2 puff Inhalation .COMPLEX PRN (Reason: Shortness Of Breath Or Wheezing) Qty: 18 RF: 1 ipratropium-albuterol 0.5 mg-3 mg(2.5 mg base)/3 mL solution for nebulization 1 dose Inhalation Q4 PRN (Reason: COUGH/WHEEZE) RF: 0 ascorbic acid (vitamin C) [Vitamin C] 500 mg Tablet 500 mg PO QAM RF: 0 Anoro Ellipta 62.5-25 mcg/actuation blister with device 1 puff Inhalation QAM RF: 0 Changed furosemide [Lasix] 20 mg tablet 20 mg PO DAILY Qty: 0 RF: 0 Discontinued losartan [Cozaar] 50 mg tablet 50 mg PO BID Qty: 180 RF: 1 ibuprofen 200 mg Tablet 400 mg PO Q6 PRN (Reason: Pain) RF: 0 Discharge Orders: Discharge Order (Routine); Ordered 03/09/19 Ordered By: Magaly Amaya/Other Patient Handouts: Diabetes Furnace Installer Complications, Diabetes Resources, Diabetes Healthy Meals, Diabetes Carbs, Diabetes Exercise Benefits, Diabetes Activity Tips, Diabetes Living Life Admission Data Admit Date/Time: 03/07/19 18:31 Attending Provider: Edgardo Lester Admit Provider: Radha Chao Primary Care Provider: Becca Araujo. Other Providers: Radha Chao Other Interventions: Discharge Summary Assessment (RN) Last Done: 03/09/19 17:24 DC Date/Time DO NOT enter until pt leaves facility: 03/09/19 21:15
[2019-03-09] MEDS: METFORMIN HCL ER 500 MG TABCR PO SCH (17:31)
--- NOTE | 2019-03-11 10:46 | XCELERA ---
[id number] [id number]
--- NOTE | 2019-03-18 07:23 | Coding Query ---
CODING QUERY To promote full compliance with coding requirements relating to patient care, provider participation is requested in all cases of invoice coder uncertainty. Please assist us with the question(s) below: Coding Question(s): Dr. Call, Please clarify the acuity of the patient's respiratory failure. ( ) Acute hypoxic respiratory failure ( ) Chronic hypoxic respiratory failure ( x) Acute on chronic hypoxic respiratory failure ( ) Other, please explain ( ) Clinically unable to determine Physician's Response(s): Thank you for your time, OCTAVIO Robert, [facility]
== END 2019-03-09 21:15 | disposition home or self-care (01) | DRG 190 ==
LOC: ED 14:35 → 2W 18:31 → SUATTDRO 18:31 → 2W 20:05

== ENCOUNTER 2019-12-30 15:02 | Inpatient (IN) ==
--- NOTE | 2019-12-30 15:21 | Emergency Department Note ---
Impression & Plan Acute CVA (cerebrovascular accident), HTN (hypertension), Nausea ED Provider Note NAME: BUSHRA LARA AGE: 74 SEX: F : 1945 ARRIVES VIA: Ambulance INFORMANT: Patient, EMS ED PROVIDER(S): Eran Gardner DO CHIEF COMPLAINT: Facial droop, slurred speech HPI: Patient is a 74-year-old female who presents the ER for facial droop, slurred speech and left-sided weakness. Patient last known well was 1130 last night. She admits to a headache. History is difficult to obtain otherwise due to the slurred speech and mentation. She does admit to weakness and trouble talking. Denies any chest pain, belly pain shortness of breath. She does have some nausea but denies any belly pain. ROS: See above HPI for pertinent positives & negatives. A total of 10 systems reviewed and were otherwise negative. PAST MEDICAL HISTORY:See Below PAST SURGICAL HISTORY:See Below FAMILY HISTORY:See Below SOCIAL HISTORY:See Below HOME MEDICATIONS:See Below ALLERGIES:See Below VITALS:See Below PHYSICAL EXAMINATION: GENERAL: Sitting up in bed, alert, ill-appearing, disheveled EYE EXAM: normal conjunctiva. PERRL and EOM's grossly intact. OROPHARYNX: no exudate, no erythema, lips, buccal mucosa, and tongue normal and mucous membranes are moist NECK: supple, no nuchal rigidity, no adenopathy, non-tender LUNGS: Clear to auscultation. Normal chest wall mechanics HEART: no murmurs, S1 normal and S2 normal ABDOMEN: abdomen soft, non-tender, normo-active bowel sounds, no masses, no rebound or guarding. SKIN: no rashes and no bruising UPPER EXTREMITIES: upper extremities are grossly normal. LOWER EXTREMITIES: No pitting edema. NEURO EXAM: Awake alert oriented to person and place, slurred speech, left-sided facial droop, unable to move left upper extremity, able to wiggle toes on the left lower extremity, no weakness in right upper or right lower. MEDICAL DECISION MAKING: Patient is a 74-year-old female who presents the ER brought in by EMS for slurred speech left upper and left lower extremity weakness. Last known well was 1130 last night. IV was established blood work was obtained. She was hypertensive. CT of the head shows a devastating right-sided MCA stroke. 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 The configuration raises the possibility of a dissection. An embolus with thrombosis could potentially appear similar. Symptoms and CT angios findings were discussed with [facility]. As last known well was 1130 last night and stroke was already seen a note she is not an interventional candidate. Clearly not a TPA candidate. They recommended holding on anticoagulation at this time. Labs showed a leukocytosis of 14,000. Hemoglobin slightly elevated at 16. INR unremarkable. BMP with mild hyponatremia. Glucose was elevated. Troponin was detectable but not positive. Family was updated at bedside. Patient will be admitted to the hospital for further work-up. Triage Nursing notes reviewed. Prior medical records reviewed Vital Signs: reviewed and remarkable for HTN Differential diagnosis: Differential Diagnosis includes but is not limited to ischemic Stroke, hemorrhagic stroke, bells palsy, mass, neoplasm, migraine headache, seizure, subarachnoid hemorrhage, TIA, and transient global amnesia. ER treatment provided: See below Diagnostics interpreted by me: ECG: Sinus rhythm rate 83 PVCs Left axis Normal QTC Cardiac Monitoring: An order was placed for continuous cardiac monitoring. The monitor shows a rate of 80 with sinus rhythm. Laboratory studies: As stated above and show below. Imaging studies: CT head as well as CT angios the neck shows large right-sided MCA with a questionable dissection of the carotid Consultation(s): Discussed with Dr. Fu from [facility] who recommended no anticoagulation or transfer and monitor and admission if not any Discussed with Dr. Syed Bell for further evaluation ED COURSE: Procedures: none Critical care I have personally spent 32 minutes of critical care time in the direct management of this patient. This includes bedside care, interpretation of diagnostic studies, and testing, discussion with consultants, patient, and family members, and other required patient management activities. This 32 minutes is in excess of all separately billable procedures. Past Med/Surg History Medical History (Updated 12/30/19 @ 20:02 by Eran Gardner DO) Anxiety Asthma AVN (avascular necrosis of bone) R hip COPD (chronic obstructive pulmonary disease) DM II (diabetes mellitus, type II), controlled Hyperlipidemia Hypertension Lichen planus Lumbar stenosis with neurogenic claudication Nocturnal hypoxia Peripheral arterial disease Pulmonary nodule Respiratory failure with hypoxia Surgical History (Updated 12/27/19 @ 10:27 by Becca Araujo DO) History of back surgery (2018) S/P cataract surgery S/P lumbar fusion (2014) S/P trigger finger release (2017) Status post hysterectomy (2004) Family History Mother Diabetes Lung cancer Aunt Breast cancer Brother Bladder cancer Denies family history of Ovarian cancer Prostate cancer Myocardial infarction Colorectal cancer Social History (Updated 12/27/19 @ 09:55 by ABIMAEL Dash) Smoking Status: Current every day smoker Tobacco Type: Cigarettes Age Quit Using Tobacco: 71; packs per day: 2; Second Hand Exposure: No; Hx Alcohol Use: Yes Hx Substance Use: No Preferred Language: Mongolian Communication Ability: Effective Visual Impairment: No Limitations Hearing Ability: Normal 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 Beliefs That Will Affect Care: None marital status: Current Living Situation: Family current occupational status: other How many Children do You have: 2 Feels Safe at Home: Yes caffeine: Yes Dental Care, Regularly: No Physical Activity Frequency: Does not Exercise Seatbelt Use: always Sunscreen Use: No Assistive Devices: Oxygen - Continuous Allergies Allergies Allergy/AdvReac Type Severity Reaction Status Date / Time adhesive Allergy Unknown ITCHY Verified 12/27/19 09:53 Penicillins Allergy Unknown HIVES IN Verified 12/27/19 09:53 MOUTH tramadol Allergy Unknown RASH MOUTH, Verified 12/27/19 09:53 oxycodone AdvReac Unknown NAUSEA,ANGRY Verified 12/27/19 09:53 REACTION Home Meds Home Medications Medication Instructions Recorded Confirmed ascorbic acid (vitamin C) [Vitamin 500 mg PO QAM 06/08/18 12/30/19 C] ibuprofen 600 mg PO TID PRN 12/11/19 12/30/19 albuterol sulfate [Ventolin HFA] 1 - 2 puff INHALATION .Q4-6HRS PRN 12/30/19 12/30/19 aluminum hydrox-magnesium carb 2 - 4 tab PO QID PRN 12/30/19 12/30/19 [Gaviscon] ipratropium-albuterol 3 ml INHALATION Q4H PRN 12/30/19 12/30/19 methocarbamol 500 mg PO Q8H PRN 12/30/19 12/30/19 tramadol 50 mg PO Q8H PRN 12/30/19 12/30/19 Previous Rx's Medication Instructions Recorded losartan 50 mg tablet 50 mg PO BID #180 tab 09/12/19 metformin 500 mg tablet,extended 500 mg PO DAILY #90 tab 10/03/19 release 24 hr prednisone 20 mg tablet See Rx Instructions .ROUTE 12/27/19 .COMPLEX #21 tab Results & Data (ED) Vital Signs Vital Signs - 24 hr 12/30/19 15:09 12/30/19 15:25 12/30/19 15:39 Temperature 36.6 C Temperature Source Oral Pulse Rate 88 80 78 Pulse Rate from SpO2 Sensor 84 77 Pulse Rhythm Regular Pulse Strength Normal Respiratory Rate 19 19 17 Respiratory Effort / Characteristics Non-Labored Respiratory Depth Normal Respiratory Pattern Regular Blood Pressure 198/100 H 198/100 H 99/75 L Blood Pressure Mean 139 132 81 Pulse Oximetry 90 93 100 Oxygen Delivery Method Nasal Cannula Nasal Cannula Oxygen Flow Rate 4 Sepsis Recent Fever Within 48 Hours No Sepsis New/Unexplained Change in Mental Status N/A Sepsis Action Taken by Nursing No Action Required 12/30/19 15:40 12/30/19 15:46 12/30/19 16:01 Temperature Temperature Source Pulse Rate 79 80 77 Pulse Rate from SpO2 Sensor 79 80 77 Pulse Rhythm Pulse Strength Respiratory Rate 20 21 19 Respiratory Effort / Characteristics Respiratory Depth Respiratory Pattern Blood Pressure 116/70 119/55 L 159/92 H Blood Pressure Mean 106 60 101 Pulse Oximetry 100 100 100 Oxygen Delivery Method Oxygen Flow Rate Sepsis Recent Fever Within 48 Hours Sepsis New/Unexplained Change in Mental Status Sepsis Action Taken by Nursing 12/30/19 16:16 12/30/19 16:50 12/30/19 17:00 Temperature Temperature Source Pulse Rate 73 104 H Pulse Rate from SpO2 Sensor 73 100 H 104 H Pulse Rhythm Pulse Strength Respiratory Rate 16 17 19 Respiratory Effort / Characteristics Respiratory Depth Respiratory Pattern Blood Pressure 168/75 H 197/99 H 190/155 H Blood Pressure Mean 99 125 160 Pulse Oximetry 100 99 96 Oxygen Delivery Method Oxygen Flow Rate Sepsis Recent Fever Within 48 Hours Sepsis New/Unexplained Change in Mental Status Sepsis Action Taken by Nursing 12/30/19 17:15 12/30/19 17:30 12/30/19 17:46 Temperature Temperature Source Pulse Rate 94 H 92 H 103 H Pulse Rate from SpO2 Sensor 93 H 92 H 101 H Pulse Rhythm Pulse Strength Respiratory Rate 16 16 18 Respiratory Effort / Characteristics Respiratory Depth Respiratory Pattern Blood Pressure 171/97 H 172/89 H 185/151 H Blood Pressure Mean 109 93 161 Pulse Oximetry 98 98 94 Oxygen Delivery Method Nasal Cannula Oxygen Flow Rate 4 4 Sepsis Recent Fever Within 48 Hours Sepsis New/Unexplained Change in Mental Status Sepsis Action Taken by Nursing 12/30/19 18:00 12/30/19 18:01 12/30/19 18:15 Temperature Temperature Source Pulse Rate 98 H 100 H Pulse Rate from SpO2 Sensor 100 H 100 H Pulse Rhythm Pulse Strength Respiratory Rate 16 17 Respiratory Effort / Characteristics Respiratory Depth Respiratory Pattern Blood Pressure 194/119 H 193/142 H Blood Pressure Mean 124 151 Pulse Oximetry 96 99 98 Oxygen Delivery Method Nasal Cannula Nasal Cannula Nasal Cannula Oxygen Flow Rate 4 4 4 Sepsis Recent Fever Within 48 Hours Sepsis New/Unexplained Change in Mental Status Sepsis Action Taken by Nursing 12/30/19 18:30 12/30/19 18:45 12/30/19 19:00 Temperature Temperature Source Pulse Rate 105 H 93 H 95 H Pulse Rate from SpO2 Sensor 105 H 89 85 Pulse Rhythm Pulse Strength Respiratory Rate 19 17 19 Respiratory Effort / Characteristics Respiratory Depth Respiratory Pattern Blood Pressure 201/94 H 196/102 H 173/112 H Blood Pressure Mean 135 123 118 Pulse Oximetry 94 91 90 Oxygen Delivery Method Nasal Cannula Oxygen Flow Rate 4 Sepsis Recent Fever Within 48 Hours Sepsis New/Unexplained Change in Mental Status Sepsis Action Taken by Nursing 12/30/19 19:16 12/30/19 19:21 Temperature Temperature Source Pulse Rate 100 H Pulse Rate from SpO2 Sensor 102 H Pulse Rhythm Pulse Strength Respiratory Rate 16 Respiratory Effort / Characteristics Respiratory Depth Respiratory Pattern Blood Pressure 157/125 H Blood Pressure Mean 131 Pulse Oximetry 96 Oxygen Delivery Method Nasal Cannula Room Air Oxygen Flow Rate 4 Sepsis Recent Fever Within 48 Hours Sepsis New/Unexplained Change in Mental Status Sepsis Action Taken by Nursing Laboratory Data Result diagrams: 12/30/19 14:28 12/30/19 16:07 Lab Results 12/30/19 12/30/19 12/30/19 Range/Units 14:28 14:28 14:28 WBC 13.97 H (4.8-10.8) K/uL RBC 5.25 (4.2-5.4) M/uL Hgb 16.5 H (12.0-16.0) g/dL Hct 48.6 H (37-47) % MCV 92.6 (80-100) fL MCH 31.4 (25-34) pg MCHC 34.0 (32-36) g/dL RDW Std Deviation 47.2 H (36.4-46.3) fL RDW Coeff of Lyssa 13.9 (11.5-14.5) % Plt Count 323 (130-400) K/uL MPV 9.6 (7.4-10.4) fL Immature Gran % (Auto) 0.3 % Neut % (Auto) 75.9 % Lymph % (Auto) 15.0 % Mcdowell % (Auto) 8.3 % Eos % (Auto) 0.4 % Baso % (Auto) 0.1 % Neut # (Auto) 10.60 H (1.4-6.5) K/uL Lymph # (Auto) 2.09 (1.2-3.4) K/uL Mcdowell # (Auto) 1.16 H (0.11-0.59) K/uL Eos # (Auto) 0.06 (0-0.5) K/uL Baso # (Auto) 0.02 (0-0.2) K/uL Immature Gran # (Auto) 0.04 H (0.00-0.02) K/uL PT Cancelled INR Cancelled APTT Cancelled PTT Ratio Cancelled Sodium 133 L (136-145) mmol/L Potassium (3.5-5.1) mmol/L Chloride 95 L (98-107) mmol/L Carbon Dioxide 29 (21-32) mmol/L Anion Gap 9.0 (3-11) BUN 14 (7-18) mg/dl Creatinine 0.89 (0.6-1.2) mg/dl Est Cr Clr Drug Dosing 68.9 ml/min Est GFR ( Amer) 74.5 Est GFR (Non-Af Amer) 64.3 BUN/Creatinine Ratio 15.3 (10-20) Glucose 170 H (70-99) mg/dl POC Glucose (70-99) mg/dl Calcium 9.6 (8.5-10.1) mg/dl Magnesium (1.8-2.4) mg/dl Total Bilirubin 0.6 (0.2-1) mg/dl AST (15-37) U/L ALT 57 (12-78) U/L Alkaline Phosphatase 75 (45-117) U/L Troponin I 0.041 (0-0.045) ng/ml Total Protein 8.1 (6.4-8.2) gm/dl Albumin 3.7 (3.4-5.0) gm/dl Globulin 4.4 H (2.5-4.0) gm/dl Albumin/Globulin Ratio 0.8 L (0.9-2) Specimen Hemolysis Blood Type Antibody Screen 12/30/19 12/30/19 12/30/19 Range/Units 15:23 15:29 16:07 WBC (4.8-10.8) K/uL RBC (4.2-5.4) M/uL Hgb (12.0-16.0) g/dL Hct (37-47) % MCV (80-100) fL MCH (25-34) pg MCHC (32-36) g/dL RDW Std Deviation (36.4-46.3) fL RDW Coeff of Lyssa (11.5-14.5) % Plt Count (130-400) K/uL MPV (7.4-10.4) fL Immature Gran % (Auto) % Neut % (Auto) % Lymph % (Auto) % Mcdowell % (Auto) % Eos % (Auto) % Baso % (Auto) % Neut # (Auto) (1.4-6.5) K/uL Lymph # (Auto) (1.2-3.4) K/uL Mcdowell # (Auto) (0.11-0.59) K/uL Eos # (Auto) (0-0.5) K/uL Baso # (Auto) (0-0.2) K/uL Immature Gran # (Auto) (0.00-0.02) K/uL PT 10.5 INR 1.0 APTT 20.0 L PTT Ratio 0.7 Sodium (136-145) mmol/L Potassium (3.5-5.1) mmol/L Chloride (98-107) mmol/L Carbon Dioxide (21-32) mmol/L Anion Gap (3-11) BUN (7-18) mg/dl Creatinine (0.6-1.2) mg/dl Est Cr Clr Drug Dosing ml/min Est GFR ( Amer) Est GFR (Non-Af Amer) BUN/Creatinine Ratio (10-20) Glucose (70-99) mg/dl POC Glucose 179 H (70-99) mg/dl Calcium (8.5-10.1) mg/dl Magnesium (1.8-2.4) mg/dl Total Bilirubin (0.2-1) mg/dl AST (15-37) U/L ALT (12-78) U/L Alkaline Phosphatase (45-117) U/L Troponin I (0-0.045) ng/ml Total Protein (6.4-8.2) gm/dl Albumin (3.4-5.0) gm/dl Globulin (2.5-4.0) gm/dl Albumin/Globulin Ratio (0.9-2) Specimen Hemolysis Blood Type A Negative Antibody Screen NEGATIVE 12/30/19 Range/Units 16:07 WBC (4.8-10.8) K/uL RBC (4.2-5.4) M/uL Hgb (12.0-16.0) g/dL Hct (37-47) % MCV (80-100) fL MCH (25-34) pg MCHC (32-36) g/dL RDW Std Deviation (36.4-46.3) fL RDW Coeff of Lyssa (11.5-14.5) % Plt Count (130-400) K/uL MPV (7.4-10.4) fL Immature Gran % (Auto) % Neut % (Auto) % Lymph % (Auto) % Mcdowell % (Auto) % Eos % (Auto) % Baso % (Auto) % Neut # (Auto) (1.4-6.5) K/uL Lymph # (Auto) (1.2-3.4) K/uL Mcdowell # (Auto) (0.11-0.59) K/uL Eos # (Auto) (0-0.5) K/uL Baso # (Auto) (0-0.2) K/uL Immature Gran # (Auto) (0.00-0.02) K/uL PT INR APTT PTT Ratio Sodium (136-145) mmol/L Potassium 4.0 (3.5-5.1) mmol/L Chloride (98-107) mmol/L Carbon Dioxide (21-32) mmol/L Anion Gap (3-11) BUN (7-18) mg/dl Creatinine (0.6-1.2) mg/dl Est Cr Clr Drug Dosing ml/min Est GFR ( Amer) Est GFR (Non-Af Amer) BUN/Creatinine Ratio (10-20) Glucose (70-99) mg/dl POC Glucose (70-99) mg/dl Calcium (8.5-10.1) mg/dl Magnesium 1.6 L (1.8-2.4) mg/dl Total Bilirubin (0.2-1) mg/dl AST 44 H (15-37) U/L ALT (12-78) U/L Alkaline Phosphatase (45-117) U/L Troponin I (0-0.045) ng/ml Total Protein (6.4-8.2) gm/dl Albumin (3.4-5.0) gm/dl Globulin (2.5-4.0) gm/dl Albumin/Globulin Ratio (0.9-2) Specimen Hemolysis Blood Type Antibody Screen Administered Medications Discontinued Medications Ioversol (Optiray 320 125ml) 120 ml IV ONCE ONE Stop: 12/30/19 16:45 Last Admin: 12/30/19 16:44 Dose: 120 ml Documented by: [id number] Ondansetron HCl (Ondansetron Inj 2 Mg/Ml 2 Ml Vial) 4 mg IV NOW STA Stop: 12/30/19 16:34 Last Admin: 12/30/19 17:08 Dose: 4 mg Documented by: [id number] Discharge Plan Visit Data Chief Complaint: Stroke/CVA Symptoms Stated Complaint: STROKE SX ED Provider: Eran Gardner Discharge Problem: Acute CVA (cerebrovascular accident), HTN (hypertension), Nausea Discharge Instructions Interventions: ED Discharge Assessment Last Done: 12/30/19 19:21 Forms Stand Alone Forms: [facility] Prescriptions Prescriptions: No Action losartan 50 mg tablet 50 mg PO BID Qty: 180 RF: 1 metformin 500 mg tablet extended release 24 hr 500 mg PO DAILY Qty: 90 RF: 1 prednisone 20 mg tablet See Rx Instructions .Route .COMPLEX Qty: 21 RF: 0 ascorbic acid (vitamin C) [Vitamin C] 500 mg Tablet 500 mg PO QAM RF: 0 ibuprofen 200 mg Tablet 600 mg PO TID PRN (Reason: Pain) RF: 0 tramadol 50 mg Tablet 50 mg PO Q8H PRN (Reason: Pain) RF: 0 Gaviscon 160-105 mg Tablet,Chewable 2 - 4 tab PO QID PRN (Reason: Antacid) RF: 0 methocarbamol 500 mg tablet 500 mg PO Q8H PRN (Reason: Back Spasm) RF: 0 ipratropium-albuterol 0.5 mg-3 mg(2.5 mg base)/3 mL solution for nebulization 3 ml inhalation Q4H PRN (Reason: Cough/Wheeze) RF: 0 albuterol sulfate [Ventolin HFA] 90 mcg/actuation HFA aerosol inhaler 1 - 2 puff Inhalation .Q4-6HRS PRN (Reason: Shortness Of Breath Or Wheezing) RF: 0 Discharge Problem: HTN (hypertension) Qualifiers: Hypertension type: unspecified Qualified Code(s): I10 - Essential (primary) hypertension
[2019-12-30 15:29] LABS: Basophils # (auto) 0.02 K/uL (0-0.2); Basophils % (auto) 0.1 %; Eosinophils # (auto) 0.06 K/uL (0-0.5); Eosinophils % (auto) 0.4 %; Hematocrit (blood only) 48.6 % (37-47); Hemoglobin 16.5 g/dL (12.0-16.0); Immature Granulocytes # (auto) 0.04 K/uL (0.00-0.02); Immature Granulocytes % (auto) 0.3 %; Lymphocytes # (auto) 2.09 K/uL (1.2-3.4); Mean Corpuscular Hemoglobin 31.4 pg (25-34); Mean Corpuscular Volume 92.6 fL (80-100); Mean Platelet Volume 9.6 fL (7.4-10.4); Monocytes # (auto) 1.16 K/uL (0.11-0.59); Monocytes % (auto) 8.3 %; Neutrophils % (auto) 75.9 %; Platelet Count 323 K/uL (130-400); RDW Coefficient of Variation 13.9 % (11.5-14.5); RDW Standard Deviation 47.2 fL (36.4-46.3); Red Blood Count 5.25 M/uL (4.2-5.4); White Blood Count 13.97 K/uL (4.8-10.8)
[2019-12-30 16:00] LABS: Albumin Globulin Ratio 0.8 (0.9-2); Albumin Level 3.7 gm/dl (3.4-5.0); BUN Creatinine Ratio 15.3 (10-20); Bilirubin,Total 0.6 mg/dl (0.2-1); Calcium 9.6 mg/dl (8.5-10.1); Creatinine Clr Calc Pharmacy 68.9 ml/min; Est GFR (African American) 74.5; Est GFR (Non-African American) 64.3; Globulin 4.4 gm/dl (2.5-4.0); Total Protein 8.1 gm/dl (6.4-8.2); Troponin I 0.041 ng/ml (0-0.045)
[2019-12-30 16:26] LABS: Partial Thromboplastin Ratio 0.7; Prothrombin Time 10.5 Seconds (9.0-12.0)
[2019-12-30] MEDS ORDERED: ONDANSETRON INJ 2 MG/ML 2 ML VIAL IV STA (16:33)
[2019-12-30 16:44] LABS: Magnesium 1.6 mg/dl (1.8-2.4)
[2019-12-30] MEDS ORDERED: OPTIRAY 320 125ml IV ONE (16:44)
--- NOTE | 2019-12-30 16:52 | CT Scan Report ---
CT head/brain wo con CLINICAL HISTORY: Stroke evaluation COMPARISON STUDY: No previous studies for comparison. TECHNIQUE: Axial CT of the brain is performed from the vertex to the skull base. IV contrast was not administered for this examination. A dose lowering technique was utilized adhering to the principles of ALARA. CT DOSE: FINDINGS: There is loss of lester-white differentiation within the right hemisphere in the right middle cerebral artery distribution. This is consistent with a large acute/subacute infarct. There is mild mass effec t with 3 mm of [id number] midline shift. There is no evidence of acute hemorrhage. There is a hype rdense right MCA sign suggestive of acute thrombus. There are patchy white matter hypodensities likely on a small vessel basis. There is no evidence of pathologic ventricular dilatation. There is no evidence of acute sinusitis IMPRESSION: 1. Large acute right MCA distribution infarct. 2. Hyperdense right MCA sign, suggestive of acute thrombus. 3. This report was called to the emergency room at 4:49 PM. ACT 112: Negative or not required by law. Electronically signed by: Daryl Kowalski M.D. 12/30/2019 4:51 PM
--- NOTE | 2019-12-30 16:59 | CT Scan Report ---
CT angio neck with con CLINICAL HISTORY: Stroke evaluation COMPARISON STUDY: No previous studies for comparison. TECHNIQUE: CT angiography was performed from the aortic arch to the skull base. MIP imaging was perfo rmed. The patient was scanned in a dynamic helical fashion during intravenous administration of 120 c c of Optiray 320. A dose lowering technique was utilized adhering to the principles of ALARA. CT DOSE: 3359.43 mGy.cm Technique: CT angiogram of the carotid and vertebral arteries was obtained using intravenous contrast and 3-D reconstruction. NASCET criteria was utilized. Findings: The lung apices reveal pulmonary emphysema. The right carotid is occluded proximally, likely secondary to a large embolus or dissection. The left carotid revealed no evidence of hemodynamic significant stenosis. There is no evidence of an eurysm. There is no evidence of dissection. There is no evidence of hemodynamically significant vertebral stenosis. There is no evidence of verte bral dissection. IMPRESSION: 1. 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 The configuration raises the possibility of a dissection. An embolus with thrombosis could potentially appear similar. 2. No evidence of left internal carotid artery stenosis 3. No evidence of vertebral artery stenosis. ACT 112: Negative or not required by law. Electronically signed by: Daryl Kowalski M.D. 12/30/2019 4:58 PM
--- NOTE | 2019-12-30 17:02 | CT Scan Report ---
CTA ANGIOGRAPHY OF THE HEAD CLINICAL HISTORY: Stroke evaluation. COMPARISON STUDY: No previous studies for comparison. TECHNIQUE: Helical axial images of the head were obtained following uneventful intravenous administr ation of 120 cc of Optiray 320. Sagittal and coronal reconstructions were viewed as well as maximal i ntensity projections on an independent 3-D workstation. Automated exposure control was utilized for the study. A dose lowering technique was utilized adhering to the principles of ALARA. FINDINGS: Please note that the unenhanced head CT will be reported separately. This study demonstrate d dense right MCA sign consistent with thromboembolic material. Note is made of extensive hypodensity with loss of lester differentiation within the right middle cerebral artery territory. There is relati ve sparing of the right anterior cerebral artery territory. Sulcal effacement is noted with compressi on of the right lateral ventricle and 3 mm of leftward midline shift. No acute intracranial hemorrhag e is noted. Visualized portions of the cervical right internal carotid artery are occluded. Intracran ial portion of the right internal carotid artery is also occluded as is the right middle cerebral art etelvina and its branches. The right anterior cerebral artery is patent, likely through collaterals. The l eft M1, M2, A1 and A2 segments are patent. Intracranial portions of the bilateral vertebral arteries are patent. The basilar artery is patent. The bilateral posterior cerebral arteries are patent. IMPRESSION: Findings consistent with extensive acute infarct involving the entire right middle cereb ral artery territory with mass effect including sulcal effacement, compression of the right lateral v entricle and mild leftward midline shift. No acute intracranial hemorrhage. This acute infarct is due to acute occlusion of the right internal carotid and right middle cerebral arteries. ACT 112: Negative or not required by law. Electronically signed by: Jude Huerta M.D. 12/30/2019 5:01 PM
--- NOTE | 2019-12-30 19:28 | History & Physical Report ---
Date of Service December 30, 2019 Assessment & Plan (1) Stroke: The patient is a 74-year-old female [facility] of hypertension, hyperlipidemia, Type 2 diabetes, COPD, asthma, lumbar stenosis with claudication, peripheral artery disease, lichen planus who presented by ambulance due to facial droop, slurred speech, and left sided weakness. Imaging was positive for acute ischemic stroke. Ischemic stroke - Head CT & Head CTA positive for extensive acute infarct involving the entire right middle cerebral artery territory with mass effect including sulcal effacement, compression of the right lateral ventricle and mild leftward midline shift - Neck CTA: Occlusion of the proximal right internal carotid artery. The configuration raises the possibility of a dissection. An embolus with thrombosis could potentially appear similar. - Patient not an interventional/TPA candidate as last known time she was well was 11:30PM last night - [facility] tele-stroke neurology recommended holding anticoagulation - Neuro consulted - Consider CT Head repeat at 24 hours - TTE pending - Lipid profile, A1C, BMP, CBC morning labs ordered - PT/OT consulted - Fall/aspiration precautions - NIHSS daily Hyperlipidemia - Not on statin at home - Patient is NPO--consider starting statin when able to tolerate oral medications Hypertension - Hold home losartan for permissive hypertension Diabetes mellitus, type 2 - Hold home losartan for permissive hypertension - Insulin: Basal Lantus 17 units SC BID; Bolus correction factor 25, ratio 1:8 COPD - Duonebs PRN Low back pain w/ radiculopathy - Was started on prednisone course on 12/26 by PCP--possible cause for leukocytosis with neutrophilia - Held prednisone--short term treatment, no need for taper DVT prophylaxis: SCDs FEN: NPO, IVF: NSS + 20Meq KCl in 1000mL IV Q7H9M 140mls/hr Dispo: PCU/tele Code: DNR/DNI (2) Hyperlipidemia: (3) Hypertension: (4) DM II (diabetes mellitus, type II), controlled: (5) COPD (chronic obstructive pulmonary disease): (6) Lumbar back pain with radiculopathy affecting lower extremity: History of Present Illness Primary Care Provider: Becca Araujo DO The patient is a 74-year-old female [facility] of hypertension, hyperlipidemia, Type 2 diabetes, COPD, asthma, lumbar stenosis with claudication, peripheral artery disease, lichen planus who presented by ambulance due to facial droop, slurred speech, and left sided weakness. Her son reports that he was at home with her last night and last saw her around 11:30PM. Upon awakening, he realized his mother was not up and about the house as she usually is so he went to check on her in her bedroom. He found her laying on her bed sideways and upon awakening her, he says she was able to speak to him but she was slurring her words. He asked whether she needed help and she responded that she just needed something to drink and she'd be fine. At this point, due to the slurred speech, her son decided to call the ambulance. Head CT & Head CTA are positive for extensive acute infarct involving the entire right middle cerebral artery territory with mass effect including sulcal effacement, compression of the right lateral ventricle and mild leftward midline shift. Neck CTA showed occlusion of the proximal right internal carotid artery. The configuration raises the possibility of a dissection. An embolus with thrombosis could potentially appear similar. ED provider spoke to [facility] tele-stroke neurology. Patient was not an interventional/TPA candidate as she was last known to be well at 11:30PM last night. They recommended holding anticoagulation at this time. Labs with leukocytosis of 13.97 with neutrophilia (on prednisone as of 12/26 due to LBP w/ radiculopathy per PCP), elevated hemoglobin at 16.5, slight hyponatremia, hyperglycemia, hypomagnesemia. Troponin negative. On evaluation at bedside, the patient is minimally responsive to my voice--tries to open eyes and sometimes nods or shakes head, otherwise very limited response. Further information is difficult to ascertain as patient is unable to speak clearly and is very lethargic. She has blood on her left lower lip--unclear whether she fell, son cannot clarify further. Patient nods when asked if she has a headache and nausea. Denies chest pain, shortness of breath, abdominal pain. ROS otherwise limited due to minimal response. Allergies Allergy/AdvReac Type Severity Reaction Status Date / Time adhesive Allergy Unknown ITCHY Verified 12/27/19 09:53 Penicillins Allergy Unknown HIVES IN Verified 12/27/19 09:53 MOUTH tramadol Allergy Unknown RASH MOUTH, Verified 12/27/19 09:53 oxycodone AdvReac Unknown NAUSEA,ANGRY Verified 12/27/19 09:53 REACTION Home Medications Home Medications Medication Instructions Recorded Confirmed Type ascorbic acid (vitamin C) [Vitamin 500 mg PO QAM 06/08/18 12/30/19 History C] losartan 50 mg tablet 50 mg PO BID #180 tab 09/12/19 12/30/19 Rx metformin 500 mg tablet,extended 500 mg PO DAILY #90 tab 10/03/19 12/30/19 Rx release 24 hr ibuprofen 600 mg PO TID PRN 12/11/19 12/30/19 History prednisone 20 mg tablet See Rx Instructions .ROUTE 12/27/19 12/30/19 Rx .COMPLEX #21 tab albuterol sulfate [Ventolin HFA] 1 - 2 puff INHALATION .Q4-6HRS PRN 12/30/19 12/30/19 History aluminum hydrox-magnesium carb 2 - 4 tab PO QID PRN 12/30/19 12/30/19 History [Gaviscon] ipratropium-albuterol 3 ml INHALATION Q4H PRN 12/30/19 12/30/19 History methocarbamol 500 mg PO Q8H PRN 12/30/19 12/30/19 History tramadol 50 mg PO Q8H PRN 12/30/19 12/30/19 History ilziekdhaxw-uoiuxkktb-uzydxypo 1 inh INHALATION DAILY 12/31/19 12/31/19 History [Trelegy Ellipta] Past Med/Surg History Medical History (Updated 12/30/19 @ 20:56 by Margarito Schreiber MD) Anxiety Asthma AVN (avascular necrosis of bone) R hip COPD (chronic obstructive pulmonary disease) DM II (diabetes mellitus, type II), controlled Hyperlipidemia Hypertension Lichen planus Lumbar stenosis with neurogenic claudication Nocturnal hypoxia Peripheral arterial disease Pulmonary nodule Respiratory failure with hypoxia Surgical History (Updated 12/27/19 @ 10:27 by Becca Araujo DO) History of back surgery (2018) S/P cataract surgery S/P lumbar fusion (2014) S/P trigger finger release (2016) Status post hysterectomy (2004) Family History Mother Diabetes Lung cancer Aunt Breast cancer Brother Bladder cancer Denies family history of Ovarian cancer Prostate cancer Myocardial infarction Colorectal cancer Social History (Updated 12/27/19 @ 09:55 by ABIMAEL Dash) Smoking Status: Former smoker Tobacco Type: Cigarettes Age Quit Using Tobacco: 71; packs per day: 2; Second Hand Exposure: No; Hx Alcohol Use: Yes Alcohol type: wine Hx Substance Use: No Preferred Language: Moldovan Communication Ability: Impaired Communication Ability Comment: Communicaton effective up until today Visual Impairment: No Limitations Hearing Ability: Normal Transcription Manager Required: No Beliefs That Will Affect Care: None marital status: Current Living Situation: Family Current Living Situation Comment: Lives with Son current occupational status: other How many Children do You have: 2 Other Information That Helps Us Care for You: No Feels Safe at Home: Yes caffeine: Yes Dental Care, Regularly: No Physical Activity Frequency: Does not Exercise Seatbelt Use: always Sunscreen Use: No Assistive Devices: Oxygen - Continuous Review of Systems Review of Systems: Unobtainable due to reduced consciousness (only pertinent positives/negatives as documented above) Physical Exam Constitutional: + obese and + altered mental status Eyes: PERRL, conjunctivae normal, anicteric sclerae ENMT: external ear and nose normal, oropharynx normal Neck: trachea midline, no thyromegaly Respiratory: normal respiratory effort, lungs clear to auscultation Auscultation: no crackles, no rales, no rhonchi and no wheezes Cardiovascular: RRR, no murmur, no edema Heart Sounds: normal S1 and normal S2; no gallop, no murmur and no cardiac rub Gastrointestinal (Abdomen): Inspection/Auscultation: normal bowel sounds Percussion/Palpation: abdomen soft; abdomen nontender and no guarding Neurologic: Lethargic, drowsy. Slurred speech. Facial droop on left side. No weakness of either extremity on right side. Unable to move LUE & LLE. Results & Data Results & Data ([facility]) Vital Signs (Past 12 Hours) Vital Signs Temp Pulse Resp BP Pulse Ox 12/30/19 18:30 105 H 19 201/94 H 94 12/30/19 18:15 100 H 17 193/142 H 98 12/30/19 18:01 99 12/30/19 18:00 98 H 16 194/119 H 96 12/30/19 17:46 103 H 18 185/151 H 94 12/30/19 17:30 92 H 16 172/89 H 98 12/30/19 17:15 94 H 16 171/97 H 98 12/30/19 17:00 104 H 19 190/155 H 96 12/30/19 16:50 17 197/99 H 99 12/30/19 16:16 73 16 168/75 H 100 12/30/19 16:01 77 19 159/92 H 100 12/30/19 15:46 80 21 119/55 L 100 12/30/19 15:40 79 20 116/70 100 12/30/19 15:39 78 17 99/75 L 100 12/30/19 15:25 36.6 C 80 19 198/100 H 93 12/30/19 15:09 88 19 198/100 H 90 Code Status & VTE Plan VTE Prophylaxis Plan VTE Prophylaxis will be ordered: Yes Supervising Physician Co-Signing Physician Notes I personally saw and examined the patient. I verified all pathak points and agree with Resident Physician Margarito Schreiber with the following exceptions and/or additions: 74 yo female former smoker (quit 2017) who presents to the ER with left sided facial droop, slurred speech and left sided weakness. No prior CVA. She was found by her son this morning in bed telling her son she just didn't feel well and to get her a drink. However since she was unable to move her son called for an ambulance. Last known well 11:30pm. She was recently prescribed methocarbamol and prednisone for back pain. Her son reports she has been drowsy with the methocarbamol but otherwise her normal self in the last few days. No fevers or chills. O/E - patient alert but lethargic, able to answer yes and no questions with nodding and shaking her head, otherwise incomprehensible sounds. Pursed lip breathing. PERRL. EOMI - not following simple commands. Dry mucus membranes. LUE 0/5 power, LLE 3/5 toe movement, otherwise 0/5, Left sided upgoing plantar reflex. RUE/RLL 4/5 power throughout. A/P Acute large R MCA territory CVA with occluded R common carotid: Discussed with Dr Montanez ([facility]) - recommended repeating MRI or CT to assess for hemorrhagic conversion overnight or in AM to assess starting antithrombotic therapy. Allow permissive hypertension sBP 150-180. Currently unable to take PO medication therefore statin deferred. TTE Monitor on telemetry IV fluids with NSS+KCl 20 meq @ 140ml/hr PT/OT/SLT consult. Consult neurology Dehydration - Elevated specific gravity of urine, Cr at baseline. IV fluids as above. Continue to monitor Cr with daily labs. T2DM - hold metformin, HbA1C with AM labs. Lantus 17 units given which given patient is insulin naive and NPO may cause hypoglycemia overnight therefore she will have BSG q2h overnight. Further insulin dosing pending BSG overnight. HTN - As above hold losartan, aim sBP 150-180. Hypoxia - Suspect left hemidiaphragm elevated secondary to CVA as above causing atelectasis in setting of severe COPD. No wheezing to suggest exacerbation. Aim O2 sats > 90%. Severe COPD - Continue Trelegy Ellipta or hospital formulary equivalent. Duonebs PRN. Hypomagnesemia - MG sulphate 2g IV, repeat Mg level in AM DNR/DNI as discussed with the patient who demonstrated understanding with yes and no answers. Also discussed with her son at bedside. Resident Activity Tracking Resident Involvement: Resident Care Provided Care Provided: Adult Hospital Medicine (1) COPD (chronic obstructive pulmonary disease) COPD type: COPD with acute exacerbation Qualified Code(s): J44.1 - Chronic obstructive pulmonary disease with (acute) exacerbation
--- NOTE | 2019-12-30 19:37 | XRay Report ---
XR chest 1V portable CLINICAL HISTORY: Hypoxia COMPARISON STUDY: 12/11/2019 FINDINGS: There is elevation the left hemidiaphragm. The heart is enlarged. There is no focal pulmona ry consolidation. There is mild interstitial thickening. There are left basilar opacities likely atel ectatic. Chronic appearing fibronodular opacities are visualized in the right upper lung zone lateral ly. The previously identified lingular nodule is obscured.[ IMPRESSION: 1. Cardiomegaly 2. Emphysema 3. Elevation left hemidiaphragm with left basilar opacities likely atelectatic 4. The previously identified lingular nodule is obscured 5. Right upper lung zone fibronodular opacities remain similar. ACT 112: Negative or not required by law. Electronically signed by: Daryl Kowalski M.D. 12/30/2019 7:36 PM
[2019-12-30] MEDS ORDERED: GLUCOSE 40% GEL 15 GM TUBE PO PRN (20:21)
[2019-12-30] MEDS ORDERED: ALBUT/IPRATROP 3MG/0.5MG NEB 3 ML VIAL NEB PRN (20:21)
[2019-12-30] MEDS ORDERED: GLUCAGON FOR INJ 1 MG VIAL SQ PRN (20:21)
[2019-12-30] MEDS ORDERED: ONDANSETRON INJ 2 MG/ML 2 ML VIAL IV PRN (20:21)
[2019-12-30] MEDS ORDERED: PHARMACIST DISCHARGE MED REC CONSULT PRN (20:21)
[2019-12-30] MEDS ORDERED: DEXTROSE 50% 50 ML SYRINGE IV PRN (20:21)
[2019-12-30] MEDS ORDERED: CARBOHYDRATES FOR HYPOGLYCEMIA PO PRN (20:21)
[2019-12-30] MEDS ORDERED: GLUCOSE 10 TABS/TUBE PO PRN (20:21)
[2019-12-30 20:52] LABS: Appearance Urine Clear (Clear); Bacteria Urine Automated Negative (Negative); Bilirubin Urine Negative (Negative); Blood Urine 3+ (Negative); Color Urine Yellow; Epithelial Cell Urine Auto >30 /lpf (0-5); Glucose Urine UA Trace (Negative); Ketones Urine Negative (Negative); Leukocyte Esterase Urine Negative (Negative); Nitrite Urine Negative (Negative); Protein Urine 1+ (Negative); RBC Urine Automated >30 /hpf (0-4); Urobilinogen Urine Negative (Negative)
[2019-12-30] MEDS ORDERED: INSULIN GLARGINE SOLOSTAR 100 UNITS/ML 3 ML PEN SC SCH (21:00)
[2019-12-30] MEDS ORDERED: INSULIN ASPART 100 UNITS/ML 3 ML PEN SC SCH (21:00)
[2019-12-30 21:13] LABS: Specific Gravity Urine > 1.045 (1.000-1.030)
[2019-12-30] MEDS: NSS + 20MEQ KCL 20 MEQ/1,000 ML BAG IV SCH (21:20)
[2019-12-30] MEDS: MAGNESIUM SULFATE / D5W 1 GM/100 ML BAG IV SCH ×2 (21:25→23:53)
[2019-12-30] MEDS ORDERED: Nursing to Pharmacy Communication SCH (23:45)
[2019-12-31] MEDS: NSS + 20MEQ KCL 20 MEQ/1,000 ML BAG IV SCH ×3 (04:22→20:32)
[2019-12-31] MEDS: INSULIN ASPART 100 UNITS/ML 3 ML PEN SC SCH ×4 (06:03→23:26)
[2019-12-31 06:36] LABS: Eosinophils # (auto) 0.01 K/uL (0-0.5); Eosinophils % (auto) 0.1 %; Hematocrit (blood only) 44.7 % (37-47); Hemoglobin 14.7 g/dL (12.0-16.0); Immature Granulocytes # (auto) 0.03 K/uL (0.00-0.02); Immature Granulocytes % (auto) 0.3 %; Lymphocytes # (auto) 1.22 K/uL (1.2-3.4); Lymphocytes % (auto) 10.4 %; Mean Corpuscular Hemoglobin 30.5 pg (25-34); Mean Corpuscular Hgb Conc 32.9 g/dL (32-36); Mean Corpuscular Volume 92.7 fL (80-100); Mean Platelet Volume 9.2 fL (7.4-10.4); Monocytes # (auto) 0.71 K/uL (0.11-0.59); Neutrophils # (auto) 9.77 K/uL (1.4-6.5); Neutrophils % (auto) 83.2 %; Platelet Count 284 K/uL (130-400); RDW Coefficient of Variation 14.2 % (11.5-14.5); RDW Standard Deviation 48.3 fL (36.4-46.3); Red Blood Count 4.82 M/uL (4.2-5.4); White Blood Count 11.74 K/uL (4.8-10.8)
[2019-12-31 06:50] LABS: Estimated Average Glucose 151 mg/dl; Hemoglobin A1C 6.9 % (4.5-5.6)
--- NOTE | 2019-12-31 06:55 | Electrocardiogram Report ---
Test Reason : Blood Pressure : / mmHG Vent. Rate : 083 BPM Atrial Rate : 083 BPM P-R Int : 148 ms QRS Dur : 108 ms QT Int : 396 ms P-R-T Axes : 079 -16 095 degrees QTc Int : 465 ms Poor data quality, interpretation may be adversely affected Sinus rhythm with occasional Premature ventricular complexes Biatrial enlargement Nonspecific T wave abnormality Abnormal ECG When compared with ECG of 11-DEC-2019 16:28, No significant change Confirmed by Bradley Farias ([id number]) on 12/31/2019 6:55:22 AM Referred By: Confirmed By:Bradley Farias
[2019-12-31 07:03] LABS: BUN Creatinine Ratio 23.1 (10-20); Calcium 8.6 mg/dl (8.5-10.1); Est GFR (African American) 83.5; Est GFR (Non-African American) 72.1; Magnesium 2.3 mg/dl (1.8-2.4); Potassium 4.4 mmol/L (3.5-5.1)
--- NOTE | 2019-12-31 07:14 | Billing Data ---
Date of Service December 30, 2019 Coding Level of Care Code 85092 Initial Inpt Care Lvl 3
--- NOTE | 2019-12-31 08:52 | CT Scan Report ---
CT OF THE HEAD WITHOUT CONTRAST CLINICAL HISTORY: Large R CVA, r/o hemorrhagic conversion COMPARISON STUDY: Head CT and CTA of the head December 30, 2019. CT DOSE: 1363.67 mGy.cm TECHNIQUE: Helical axial images of the head were obtained without IV contrast. Automated exposure con trol was utilized for the study. A dose lowering technique was utilized adhering to the principles o f ALARA. FINDINGS: Note is made of extensive hypodensity within the right cerebral hemisphere consistent with a large acute infarct within the right middle cerebral artery territory. Loss of lester-white different iation is noted. Hyperdense right MCA sign is noted. There is no acute intracranial hemorrhage. Mass effect has mildly increased since exam December 30, 2019 with compression of the right lateral ventr icle and 4 mm of leftward midline shift. There is no evidence for herniation at this time. The basila r cisterns are patent. There are no extra-axial collections. Exam is mildly compromised by motion art ifact. IMPRESSION: 1. Redemonstration of the large acute right MCA territory infarct with mild increase in mass effect s andrea prior head CT with compression of the right lateral ventricle and mild leftward midline shift. N o acute intracranial hemorrhage. 2. Hyperdense right MCA sign consistent with acute thrombus. ACT 112: Negative or not required by law. Electronically signed by: Jude Huerta M.D. 12/31/2019 8:50 AM
[2019-12-31] MEDS: UMECLIDINIUM/VILANTEROL 62.5/25MCG 7 PUFFS/INHALER INH SCH (09:09)
[2019-12-31] MEDS: FLUTICASONE FUROATE 100MCG 14 PUFFS/INHALER INH SCH (09:09)
--- NOTE | 2019-12-31 10:33 | XCELERA ---
[id number]
--- NOTE | 2019-12-31 11:16 | Neurology Consultation ---
Date of Consultation December 31, 2019 Assessment & Plan (1) Acute CVA (cerebrovascular accident): (2) Right internal carotid occlusion: (3) HTN (hypertension): (4) DM II (diabetes mellitus, type II), controlled: (5) Hyperlipidemia: this patient had a severe ( essentially complete) right middle cerebral artery stroke with edema and some midline shift. This edema is giving her mental status changes but she still can follow 1 step commands. She has a significant motor a facial but no evidence of receptive aphasia. I got her to say 1 or 2 words. They were slurred however. She has a probable left homonymous hemianopsia, severe weakness left face and arm greater than leg, motor aphasia and dysarthria, and uncertain frank sensory deficit on the left ( very difficult with her mental status ). The etiology of this stroke is an occlusion of the right internal carotid artery as well as and extension all the way up to the right middle cerebral artery. Etiology of this is Probably dissection as it appears on CT angiography ( as reported by Dr. Kowalski). patient has no cardiac history and no other atherosclerosis scattered about on CT angiography that can be seen. Patient has multiple risk factors for ischemic stroke including hypertension, diabetes, dyslipidemia, and cigarette smoking. Overall her prognosis is somewhat poor/guarded. the cerebral edema is going to hinder her improvement but may maximize by day 3 or so and then start improving. Recommendations: 1. Echocardiogram is pending. 2. Avoid anticoagulation in lieu of the size of the stroke. We may consider antiplatelet medication but the patient cannot take p.o. currently. 3. consider mannitol per protocol for her cerebral edema. I would check with the ICU physician for this. Steroids are not indicated. 4. increase activity , with physical, occupational, and speech therapy as able. I will follow. Overall, I spent a total of 110 minutes with this case including review of records, review of CT films, direct evaluation the patient at bedside, and discussing the case with nursing at bedside, Dr. Kowalski, and Dr. Velazquez including differential diagnosis and treatment options. History of Present Illness Reason for Consultation: This patient is a 74-year-old, who I was asked to see at the request of Dr. Bell, for neurologic consultation regarding stroke. Requesting Physician: Dr. Bell Attending Physician: Chadwick Velazquez History of Present Illness patient has a longstanding history of type 2 diabetes, hypertension, dyslipidemia, COPD and was a 2 pack per day cigarette smoker, relatively quitting recently. Patient had a last time known well at 2330 on December 28. She woke up and was found with slurred speech, left upper and lower extremity weakness. She arrived to the emergency room at 1509 with a temperature 36.6, pulse 88 regular, respiratory rate 19 and comfortable, blood pressure 198/100, and O2 saturation 90 percent on room air. This improved with oxygen. On examination she had a left facial weakness and weakness in the left arm and leg. She had some slurred speech and sleepiness. CT scan of the head showed a large right middle cerebral artery territory stroke without hemorrhage. CT angiography of the head and neck were remarkable for an occlusion of the proximal right internal carotid artery extending all the way up including the right middle cerebral artery. The left ICA and both vertebrals had no significant disease or stenosis. Consultation with [facility] Stroke team resulted in no need for transfer and no indication for anticoagulation given the size of the stroke. She was admitted and became less responsive. CT scan of the head today shows increased edema and some midline shift. I reviewed all these films from yesterday and today. I reviewed the CT angiography with Dr. Kowalski. Patient herself has no complaint of pain. She does have a mild headache. CBC showed a mildly elevated white count and polycythemia. Sodium was 133 and magnesium 1.6. Glucose was 170. Today hemoglobin A1c is 6.9. Triglycerides 151 and cholesterol 197. chemistry profile parameters improve some. Blood pressure this morning is 179/99. Allergies Allergy/AdvReac Type Severity Reaction Status Date / Time adhesive Allergy Unknown ITCHY Verified 12/27/19 09:53 Penicillins Allergy Unknown HIVES IN Verified 12/27/19 09:53 MOUTH tramadol Allergy Unknown RASH MOUTH, Verified 12/27/19 09:53 oxycodone AdvReac Unknown NAUSEA,ANGRY Verified 12/27/19 09:53 REACTION Home Medications Home Medications Medication Instructions Recorded Confirmed Type ascorbic acid (vitamin C) [Vitamin 500 mg PO QAM 06/08/18 12/30/19 History C] losartan 50 mg tablet 50 mg PO BID #180 tab 09/12/19 12/30/19 Rx metformin 500 mg tablet,extended 500 mg PO DAILY #90 tab 10/03/19 12/30/19 Rx release 24 hr ibuprofen 600 mg PO TID PRN 12/11/19 12/30/19 History prednisone 20 mg tablet See Rx Instructions .ROUTE 12/27/19 12/30/19 Rx .COMPLEX #21 tab albuterol sulfate [Ventolin HFA] 1 - 2 puff INHALATION .Q4-6HRS PRN 12/30/19 12/30/19 History aluminum hydrox-magnesium carb 2 - 4 tab PO QID PRN 12/30/19 12/30/19 History [Gaviscon] ipratropium-albuterol 3 ml INHALATION Q4H PRN 12/30/19 12/30/19 History methocarbamol 500 mg PO Q8H PRN 12/30/19 12/30/19 History tramadol 50 mg PO Q8H PRN 12/30/19 12/30/19 History walysfksvcj-mvmjnqqkf-hdvehizz 1 inh INHALATION DAILY 12/31/19 12/31/19 History [Trelegy Ellipta] Patient History Medical History Anxiety Asthma AVN (avascular necrosis of bone) R hip COPD (chronic obstructive pulmonary disease) DM II (diabetes mellitus, type II), controlled Hyperlipidemia Hypertension Lichen planus Lumbar stenosis with neurogenic claudication Nocturnal hypoxia Peripheral arterial disease Pulmonary nodule Respiratory failure with hypoxia Surgical History (Updated 12/27/19 @ 10:27 by Becca Araujo DO) History of back surgery (2017) S/P cataract surgery S/P lumbar fusion (2014) S/P trigger finger release (2016) Status post hysterectomy (2004) Family History Mother Diabetes Lung cancer Aunt Breast cancer Brother Bladder cancer Denies family history of Ovarian cancer Prostate cancer Myocardial infarction Colorectal cancer Social History Smoking Status: Former smoker Tobacco Type: Cigarettes Age Quit Using Tobacco: 71; packs per day: 2; Second Hand Exposure: No; Hx Alcohol Use: Yes Alcohol type: wine Hx Substance Use: No Preferred Language: Czech Communication Ability: Impaired Communication Ability Comment: Communicaton effective up until today Visual Impairment: No Limitations Hearing Ability: Normal Manager Clinical Required: No Beliefs That Will Affect Care: None marital status: Current Living Situation: Family Current Living Situation Comment: Lives with Son current occupational status: other How many Children do You have: 2 Other Information That Helps Us Care for You: No Feels Safe at Home: Yes caffeine: Yes Dental Care, Regularly: No Physical Activity Frequency: Does not Exercise Seatbelt Use: always Sunscreen Use: No Assistive Devices: Oxygen - Continuous Review of Systems Review of Systems: Unobtainable due to reduced consciousness The patient cannot give a good review of systems but does not seem to be in any pain except for a mild generalized headache. Exam (Neuro) Physical Exam: The patient is right-handed. The patient is sleeping with her eyes closed with snoring respirations of a deep regular pattern at a rate of about 20 or so. She is using her upper abdomen to breathe. with increased voice and gentle shaking she will open her eyes briefly and fixed to the right for a 2nd and then close her eyes again. I can get her to follow one-step commands by being loud and a little aggressive with her but she will quickly go back to sleep when left alone. she can polar head some to the left but she prefers her head to the right. Eyes are preferred to the right but she can bring them slightly past midline to the left. Pupils are 2 millimeters and reactive eyes are relatively fixed with movement of the head but she can rotate back and forth some with her eyes. She has a dense facial droop on the left and can move the corner of her mouth up on the right. Forehead is spared. Neck is supple. Tongue is midline and she has a positive gag. She has positive corneal reflexes right greater than left side. I cannot test visual vázquez but I believe she cannot see to the left. She grimaces some with sharp pain on her face bilaterally. The patient could say her name and the word "two' although she had dysarthria. The discs are sharp with positive venous pulsations bilaterally. There are no exudates, hemorrhages, or blood vessel changes seen. Neck has a full range of motion without discomfort. There are no cervical bruits bilaterally. There are no cranial or ocular bruits. Heart is without murmur. There is a regular rhythm and rate. Cervical spine is nontender to palpation. Gait and stance cannot be tested. She can lift her right arm and right leg some. She spontaneously moves and withdraws her left leg but her left arm is flaccid and not moving voluntarily or spontaneously (Therefore left upper extremity is 0/5 strength). Strength seems close to 5/5 in the right arm and right leg diffusely. Strength is 3/5 in left leg. She withdraws to pain in both legs and the right arm. She has some to Serevent prostration with deep pain in the left arm. Reflexes are 1/for the biceps, triceps, and brachioradialis tendons bilaterally. They are little more brisk on the right than the left. Reflexes are absent in the quadriceps and Achilles tendons bilaterally. Toes are upgoing to plantar stimulation on the left and withdrawal on the right. Results & Data ([facility]) Vital Signs (Past 12 Hours) Vital Signs Temp Pulse Pulse Resp BP Pulse Ox 12/31/19 08:15 89 12/31/19 07:51 36.3 C L 92 H 20 179/99 H 94 12/31/19 04:17 37.2 C 84 20 173/111 H 95 12/30/19 23:53 36.6 C 86 20 174/83 H 94 PG Care Time/CCT Total # of Minutes Spent Total Time Spent with Patient: Total time spent is greater than 50% in coordination of care (as documented) at patient's floor/unit and/or counseling patient: Coding Level of Care Code 26849 Initial Inpt Care Lvl 3 Diagnoses Acute CVA (cerebrovascular accident) I63.9 Right internal carotid occlusion I65.21 HTN (hypertension) I10 Hypertension type: unspecified DM II (diabetes mellitus, type II), controlled E11.9 Hyperlipidemia E78.5 Time Spent (min) 110 Comment Add [id number] to this [id number] (1) HTN (hypertension) Hypertension type: unspecified Qualified Code(s): I10 - Essential (primary) hypertension
[2019-12-31] MEDS: LABETALOL HCL IV 5 MG/ML 20ML IV PRN ×3 (12:48→20:31)
[2019-12-31] MEDS ORDERED: 1.2 MICRON FILTER 1 EA IV ONE (14:04)
--- NOTE | 2019-12-31 14:09 | Critical Care Consultation ---
Date of Consultation December 31, 2019 Assessment & Plan (1) Acute CVA (cerebrovascular accident): Reason Critically Ill: 74F that presented with L facial droop, LUE and LLE weakness found to have ischemic stroke of R MCA and occlusion of R internal carotid with mass effect of the R ventricle and L midline shift. NEURO: CAM ICU: Negative -Patient with L Facial droop, LUE and LLE weakness, slurred speech -Several risk factors for stroke including DM2, HTN, Dyslipidemia, hx cigarette smoker -R MCA stroke with leftward midline shift secondary to cerebral edema -R internal carotid occlusion -Repeat CT today showed worsening mass effect of the R ventricle and L midline shift. -[facility] Stroke Center was consulted at presentation who recommended no transfer and NO anticoagulation due to the size of the stroke -Neurology was consulted -Agree with avoiding anticoagulation at this time, consider antiplatelet medication when patient able to take PO -Consider mannitol per protocol for cerebral edema -Increase activity with PT, PT and speech as able -Patient was transferred to ICU for worsening cerebral edema -Will start with 50mg Mannitol (~0.5g/kg) -Will monitor patients urine output closely (has only put out ~400ml today) -Allow for Permissive HTN sbp 150-180 -Consider statin when patient able to take PO -Lipid panel Triglyceride 151, Chol 197, LDL 100, HDL 67 -PT/OT/Speech therapy ordered CARDIAC: -Hold Losartan, allow for permissive HTN -Labetalol 5mg q1h PRN for HTN >180 -Echo with EF 50-55%, no ASD noted. RESPIRATORY: -Severe COPD -Continue Trelegy as able, Duonebs PRN -Hypoxia - titrate O2 sats >90% GI: -NPO RENAL/LYTES: -IVF NSS +KCL 20meq@140ml/hr -Mag repleted with 2g, Mag level 2.3 today. -BMP in AM : -Muniz catheter in place -Has not been producing much urine, roughly ~400ml throughout day -Will monitor closely during mannitol administration ENDO: -Hold Metformin, SSI -A1c 6.9 HEME: -No current concerns ID: -No current concerns LINES/IV ACCESS: R hand and R antecubital periph CODE STATUS: DNR/DNI DVT PROPHYLAXIS: No anticoagulation at this time, SCDs in place Thank you for allowing us to participate in the care of this patient. Please refer to my attending physician's documentation for any further recommendations. (2) Right internal carotid occlusion: (3) HTN (hypertension): (4) Stroke: Supervising Physician Co-Signing Physician Notes Dr. Guzman was resident physician during care of patient. I separately evaluated patient for pathak portions of the history and the exam. I was present during the critical portion of medical decision making, and I discussed the case with the resident. I generally agree with the findings and plan. Patient has suffered a massive debilitating cerebrovascular accident. She is currently experiencing cerebral edema and we will give mannitol and hypertonic saline (custom fluid: 150 M EQ NaCl 150 M EQ sodium acetate) at 85 mL's per hour with adjusting with every 6 hour sodiums and osmolality. We will also be giving 50 mg of mannitol every 8 hours. I have personally spent 55 minutes of critical care time in the direct management of this patient. This is a life/limb threatening event. This includes time spent evaluating patient, direct bedside care, chart review, placing orders, interpretation of diagnostic studies, discussion with consultants, patient, and/or family members regarding treatment decisions, as well as other required patient management activities. This time is exclusive of all separately billable procedures, and teaching time and separate from and in addition to any other critical care service time. History of Present Illness Attending Physician: Chadwick Velazquez History of Present Illness Patient is a 74 year old female with PMHx HTN, HLD, DM2, Anxiety, Asthma, consulted for recent ischemic R MCA stroke with worsening mass effect and L midline shift noted on CT scan. Patient is currently only able to provide minimal "yes or no" responses by waving the fingers on her R hand, but otherwise is unable to properly provide a history. Remaining history if gathered from prior documentation. Patient had presented initially to the hospital after waking up on 12/30/19 with slurred speech and L upper and lower extremity weakness. She was last known well around 23:30 on 12/29/19. Upon arrival to the ED patient was seen to have L facial weakness, L upper and lower extremity weakness, slurred speech, and sleepiness. A CT scan at that time showed a large R middle cerebral artery stroke without hemorrhage and CTA of neck showed occlusion of the proximal R internal carotid artery extending all the way to the R MCA. [facility] Stroke team was consulted and no need for transfer or indication for anticoagulation was recommended. Repeat head CT scan today showed increased edema and L midline shift. Due to patients worsening cerebral edema, Neurology had recommended that patient be considered for Mannitol. Allergies Allergy/AdvReac Type Severity Reaction Status Date / Time adhesive Allergy Unknown ITCHY Verified 12/27/19 09:53 Penicillins Allergy Unknown HIVES IN Verified 12/27/19 09:53 MOUTH tramadol Allergy Unknown RASH MOUTH, Verified 12/27/19 09:53 oxycodone AdvReac Unknown NAUSEA,ANGRY Verified 12/27/19 09:53 REACTION Home Medications Home Medications Medication Instructions Recorded Confirmed Type ascorbic acid (vitamin C) [Vitamin 500 mg PO QAM 06/08/18 12/30/19 History C] losartan 50 mg tablet 50 mg PO BID #180 tab 09/12/19 12/30/19 Rx metformin 500 mg tablet,extended 500 mg PO DAILY #90 tab 10/03/19 12/30/19 Rx release 24 hr ibuprofen 600 mg PO TID PRN 12/11/19 12/30/19 History prednisone 20 mg tablet See Rx Instructions .ROUTE 12/27/19 12/30/19 Rx .COMPLEX #21 tab albuterol sulfate [Ventolin HFA] 1 - 2 puff INHALATION .Q4-6HRS PRN 12/30/19 12/30/19 History aluminum hydrox-magnesium carb 2 - 4 tab PO QID PRN 12/30/19 12/30/19 History [Gaviscon] ipratropium-albuterol 3 ml INHALATION Q4H PRN 12/30/19 12/30/19 History methocarbamol 500 mg PO Q8H PRN 12/30/19 12/30/19 History tramadol 50 mg PO Q8H PRN 12/30/19 12/30/19 History nxfxpydnxbk-bavjgqjwl-olsawqfd 1 inh INHALATION DAILY 12/31/19 12/31/19 History [Trelegy Ellipta] Patient History Medical History Anxiety Asthma AVN (avascular necrosis of bone) R hip COPD (chronic obstructive pulmonary disease) DM II (diabetes mellitus, type II), controlled Hyperlipidemia Hypertension Lichen planus Lumbar stenosis with neurogenic claudication Nocturnal hypoxia Peripheral arterial disease Pulmonary nodule Respiratory failure with hypoxia Surgical History (Updated 12/27/19 @ 10:27 by Becca Araujo DO) History of back surgery (2018) S/P cataract surgery S/P lumbar fusion (2014) S/P trigger finger release (2017) Status post hysterectomy (2004) Family History Mother Diabetes Lung cancer Aunt Breast cancer Brother Bladder cancer Denies family history of Ovarian cancer Prostate cancer Myocardial infarction Colorectal cancer Social History Smoking Status: Former smoker Tobacco Type: Cigarettes Age Quit Using Tobacco: 71; packs per day: 2; Second Hand Exposure: No; Hx Alcohol Use: Yes Alcohol type: wine Hx Substance Use: No Preferred Language: Sinhala Communication Ability: Impaired Communication Ability Comment: Communicaton effective up until today Visual Impairment: No Limitations Hearing Ability: Normal Learning And Development Manager Required: No Beliefs That Will Affect Care: None marital status: Current Living Situation: Family Current Living Situation Comment: Lives with Son current occupational status: other How many Children do You have: 2 Other Information That Helps Us Care for You: No Feels Safe at Home: Yes caffeine: Yes Dental Care, Regularly: No Physical Activity Frequency: Does not Exercise Seatbelt Use: always Sunscreen Use: No Assistive Devices: Oxygen - Continuous Review of Systems Review of Systems: Unobtainable due to reduced consciousness Physical Exam Constitutional: + obese and + altered mental status Eyes: PERRL, conjunctivae normal, anicteric sclerae ENMT: L Facial droop Can raise R lip when asked repeatedly Neck: trachea midline, no thyromegaly Respiratory: normal respiratory effort, lungs clear to auscultation Auscultation: no crackles, no rales, no rhonchi and no wheezes Cardiovascular: RRR, no murmur, no edema Heart Sounds: normal S1 and normal S2; no gallop, no murmur and no cardiac rub Gastrointestinal (Abdomen): Inspection/Auscultation: normal bowel sounds; abdomen not distended Percussion/Palpation: abdomen soft; abdomen nontender and no guarding Musculoskeletal: Muscle strength testing difficult as patient is poorly following directions. Inability to lift or move LUE or LLE at all. Unable to grasp with L hand. Limited sensory exam as patient unable to to note feeling or not. RUE strength 5/5 with appropriate movement, RLE strength 5/5 Neurologic: Cranial Nerves: PERRL Lethargic, drowsy. Slurred speech. Facial droop on left side. Unable to asses EOM Psychiatric: Orientation: + not alert Genitourinary: Muniz catheter in place Results & Data Results & Data ([facility]) Vital Signs (Past 12 Hours) Vital Signs Temp Pulse Pulse Resp BP Pulse Ox 12/31/19 12:44 37.1 C 93 H 20 182/108 H 93 12/31/19 08:15 89 12/31/19 07:51 36.3 C L 92 H 20 179/99 H 94 12/31/19 04:17 37.2 C 84 20 173/111 H 95 Resident Activity Tracking Resident Involvement: Resident Care Provided Care Provided: Adult Hospital Medicine (1) HTN (hypertension) Hypertension type: unspecified Qualified Code(s): I10 - Essential (primary) hypertension
[2019-12-31] MEDS ORDERED: MANNITOL IV STA (14:20)
[2019-12-31] MEDS ORDERED: CONSULT PHARMACY STA (17:43)
--- NOTE | 2019-12-31 17:53 | Billing Data ---
Date of Service December 31, 2019 Coding Level of Care Code Critical Care 1st 30-74 mins Time Spent (min) 55
[2019-12-31] MEDS: SODIUM CHLORIDE 3 % 500 ML IV SCH (20:30)
[2019-12-31] MEDS: MANNITOL IV SCH (23:20)
--- NOTE | 2019-12-31 23:21 | Hospitalist Progress Note ---
Date of Service December 31, 2019 Assessment & Plan (1) Stroke: The patient is a 74-year-old female [facility] of hypertension, hyperlipidemia, Type 2 diabetes, COPD, asthma, lumbar stenosis with claudication, peripheral artery disease, lichen planus who presented by ambulance due to facial droop, slurred speech, and left sided weakness. Imaging was positive for acute ischemic stroke. Ischemic stroke - Head CT & Head CTA positive for extensive acute infarct involving the entire right middle cerebral artery territory with mass effect including sulcal effacement, compression of the right lateral ventricle and mild leftward midline shift - Neck CTA: Occlusion of the proximal right internal carotid artery. The configuration raises the possibility of a dissection. An embolus with thrombosis could potentially appear similar. - Patient not an interventional/TPA candidate as last known time she was well was 11:30PM last night - Bhavna tele-stroke neurology recommended holding anticoagulation - Neuro consulted - Large stroke, showing edema, will transfer to ICU. Had extensive discussion with Neuro, Brick Grader and son on phone separately. Patient has a poor prognosis. Hyperlipidemia - Not on statin at home - Patient is NPO--consider starting statin when able to tolerate oral m edications Hypertension - Hold home losartan for permissive hypertension Diabetes mellitus, type 2 - Hold home losartan for permissive hypertension - Insulin: Basal Lantus 17 units SC BID; Bolus correction factor 25, ratio 1:8 COPD - Duonebs PRN Low back pain w/ radiculopathy - Was started on prednisone course on 12/26 by PCP--possible cause for leukocytosis with neutrophilia - Held prednisone--short term treatment, no need for taper DVT prophylaxis: SCDs (2) Hyperlipidemia: (3) Hypertension: (4) DM II (diabetes mellitus, type II), controlled: (5) COPD (chronic obstructive pulmonary disease): (6) Lumbar back pain with radiculopathy affecting lower extremity: Admission and Anticipated Discharge Date Admission Date: December 30, 2019 Subjective 74 yo female is unresponsive Review of Systems Review of Systems: All systems reviewed & are unremarkable except as noted in HPI & below Physical Exam Physical Exam: Constitutional: + obese and + altered mental status Eyes: PERRL, conjunctivae normal, anicteric sclerae ENMT: external ear and nose normal, oropharynx normal Neck: trachea midline, no thyromegaly Respiratory: normal respiratory effort, lungs clear to auscultation Auscultation: no crackles, no rales, no rhonchi and no wheezes Cardiovascular: RRR, no murmur, no edema Heart Sounds: normal S1 and normal S2; no gallop, no murmur and no cardiac rub Gastrointestinal (Abdomen): Inspection/Auscultation: normal bowel sounds Percussion/Palpation: abdomen soft; abdomen nontender and no guarding Neurologic: Lethargic, drowsy. Facial droop on left side. No weakness of either extremity on right side. Unable to move LUE & LLE. Results & Data Results & Data ([facility]) Vital Signs (Past 12 Hours) Vital Signs Temp Pulse Pulse Resp BP BP Pulse Ox 12/31/19 22:00 37.4 C 80 17 167/106 H 95 12/31/19 21:00 68 13 96 12/31/19 20:55 72 14 163/102 H 96 12/31/19 20:45 68 9 L 181/99 H 96 12/31/19 20:35 74 14 195/105 H 96 12/31/19 20:25 73 14 186/110 H 96 12/31/19 20:21 12/31/19 20:15 73 18 180/97 H 96 12/31/19 20:05 71 16 181/116 H 96 12/31/19 20:00 73 13 96 12/31/19 19:57 72 16 95 12/31/19 19:55 90 20 187/105 H 97 12/31/19 19:45 73 16 186/126 H 97 12/31/19 19:35 76 14 184/109 H 97 12/31/19 19:24 37.5 C 72 13 180/121 H 97 12/31/19 19:15 74 14 189/105 H 97 12/31/19 19:05 94 H 16 160/114 H 96 12/31/19 19:00 83 15 97 12/31/19 18:16 85 18 96 12/31/19 18:14 77 15 160/99 H 96 12/31/19 18:04 91 H 31 H 152/105 H 92 12/31/19 18:00 80 31 H 91 12/31/19 17:54 79 32 H 149/97 H 91 12/31/19 17:44 79 32 H 159/100 H 90 12/31/19 17:35 91 H 16 166/101 H 91 12/31/19 17:30 75 15 91 12/31/19 17:24 94 H 15 169/103 H 92 12/31/19 17:15 88 23 165/102 H 91 12/31/19 17:05 95 H 16 140/96 91 12/31/19 17:00 94 H 24 92 12/31/19 16:54 94 H 16 166/98 H 91 12/31/19 16:44 76 33 H 172/91 H 91 12/31/19 16:34 93 H 32 H 164/117 H 90 12/31/19 16:30 90 26 H 91 12/31/19 16:24 87 30 H 161/102 H 91 12/31/19 16:14 93 H 18 157/97 H 91 12/31/19 16:04 99 H 16 172/113 H 92 12/31/19 16:00 93 H 22 92 12/31/19 15:54 85 28 H 158/98 H 93 12/31/19 15:44 96 H 22 179/106 H 93 12/31/19 15:34 94 H 30 H 173/111 H 93 12/31/19 15:30 98 H 21 93 12/31/19 15:24 95 H 17 172/112 H 92 12/31/19 15:14 88 17 174/109 H 92 12/31/19 15:04 77 16 153/96 H 91 12/31/19 15:00 78 18 91 12/31/19 14:54 73 18 160/95 H 92 12/31/19 14:44 87 18 166/149 H 92 12/31/19 14:34 79 15 179/97 H 92 12/31/19 14:30 83 20 80 L 12/31/19 14:24 86 21 180/113 H 86 L 12/31/19 14:14 86 20 167/105 H 93 12/31/19 14:04 82 16 175/104 H 93 12/31/19 14:00 79 20 93 12/31/19 12:44 37.1 C 93 H 20 182/108 H 93 Pulse Ox 12/31/19 22:00 12/31/19 21:00 12/31/19 20:55 12/31/19 20:45 12/31/19 20:35 12/31/19 20:25 12/31/19 20:21 96 12/31/19 20:15 12/31/19 20:05 12/31/19 20:00 12/31/19 19:57 12/31/19 19:55 12/31/19 19:45 12/31/19 19:35 12/31/19 19:24 12/31/19 19:15 12/31/19 19:05 12/31/19 19:00 12/31/19 18:16 12/31/19 18:14 12/31/19 18:04 12/31/19 18:00 12/31/19 17:54 12/31/19 17:44 12/31/19 17:35 12/31/19 17:30 12/31/19 17:24 12/31/19 17:15 12/31/19 17:05 12/31/19 17:00 12/31/19 16:54 12/31/19 16:44 12/31/19 16:34 12/31/19 16:30 12/31/19 16:24 12/31/19 16:14 12/31/19 16:04 12/31/19 16:00 12/31/19 15:54 12/31/19 15:44 12/31/19 15:34 12/31/19 15:30 12/31/19 15:24 12/31/19 15:14 12/31/19 15:04 12/31/19 15:00 12/31/19 14:54 12/31/19 14:44 12/31/19 14:34 12/31/19 14:30 12/31/19 14:24 12/31/19 14:14 12/31/19 14:04 12/31/19 14:00 12/31/19 12:44 PG Care Time/CCT Total # of Minutes Spent Total Time Spent with Patient: Total time spent is greater than 50% in coordination of care (as documented) at patient's floor/unit and/or counseling patient: Prolonged Care Time Prolonged Care Time: Yes Total Prolonged Care Time: 65 11:02 to 12:07 Coding Level of Care Code 93326 Subseq Hosp Care Lvl 3 Diagnoses Stroke I63.9 Hyperlipidemia E78.5 Hypertension I10 DM II (diabetes mellitus, type II), controlled E11.9 COPD (chronic obstructive pulmonary disease) J44.1 COPD type: COPD with acute exacerbation Lumbar back pain with radiculopathy affecting lower extremity M54.16 Additional Codes Prolonged Care Time - Prolonged Care Time: Yes ([id number]) Time Spent (min) 65 Comment 11:02 to 12:07 (1) COPD (chronic obstructive pulmonary disease) COPD type: COPD with acute exacerbation Qualified Code(s): J44.1 - Chronic obstructive pulmonary disease with (acute) exacerbation
[2019-12-31] MEDS ORDERED: 1.2 MICRON FILTER 1 EA IV SCH (23:55)
[2020-01-01] MEDS ORDERED: SODIUM CHLORIDE 3 % 50 ML IV ONE (01:53)
--- NOTE | 2020-01-01 05:55 | Critical Care Progress Note ---
Date of Service January 01, 2020 Assessment & Plan (1) Acute CVA (cerebrovascular accident): Reason Critically Ill: 74F that presented with L facial droop, LUE and LLE weakness found to have ischemic stroke of R MCA and occlusion of R internal carotid with mass effect of the R ventricle and L midline shift. NEURO: -Patient with L Facial droop, LUE and LLE weakness, slurred speech -Several risk factors for stroke including DM2, HTN, Dyslipidemia, hx cigarette smoker -R MCA stroke with leftward midline shift secondary to cerebral edema -R internal carotid occlusion -Repeat CT showed worsening mass effect of the R ventricle and L midline shift. -[facility] [place] St[facility] was consulted at presentation who recommended no transfer and NO anticoagulation due to the size of the stroke -Neurology was consulted -Agree with avoiding anticoagulation at this time, consider antiplatelet medication when patient able to take PO -Consider mannitol per protocol for cerebral edema -Increase activity with PT, PT and speech as able -Patient was transferred to ICU for worsening cerebral edema and started on Mannitol -Will start with 50mg Mannitol (~0.5g/kg) -Will monitor patients urine output closely (has only put out ~400ml today) -Allow for Permissive HTN sbp 150-180 -Consider statin when patient able to take PO -Lipid panel Triglyceride 151, Chol 197, LDL 100, HDL 67 -PT/OT/Speech therapy ordered -Continue Mannitol 50mg q8h -Continue 3% NSS 75ml/hr -Na checks q6h -Osms checks q6h -Prognosis poor, spoke with family (son) yesterday and they are agreeable to Palliative consult. CARDIAC: -Hold Losartan, allow for permissive HTN -DC Labetalol -Metoprolol 5mg q5min x3 PRN systolic >180, if no improvement after 3x then call provider -Echo with EF 50-55%, no ASD noted. RESPIRATORY: -Severe COPD -Continue Trelegy as able, Duonebs PRN -Hypoxia - titrate O2 sats >90% on High Flow O2 GI: -NPO RENAL/LYTES: -Mag appropriately repleted -Lytes WNL this AM, continue with Na and Osms checks q6h : -Muniz catheter in place -Has had better urine output since administration of mannitol ENDO: -Hold Metformin, SSI -A1c 6.9 HEME: -No current concerns ID: -No current concerns LINES/IV ACCESS: R hand and R antecubital periph CODE STATUS: DNR/DNI DVT PROPHYLAXIS: No anticoagulation at this time, SCDs in place Thank you for allowing us to participate in the care of this patient. Please refer to my attending physician's documentation for any further recommendations. (2) Right internal carotid occlusion: (3) HTN (hypertension): (4) Stroke: Admission and Anticipated Discharge Date Admission Date: December 30, 2019 Supervising Physician Co-Signing Physician Notes Dr. Guzman was resident physician during care of patient. I separately evaluated patient for pathak portions of the history and the exam. I was present during the critical portion of medical decision making, and I discussed the case with the resident. I generally agree with the findings and plan. 3% running at 75 cc/h, mannitol every 8. Palliative care consulted, one son is currently incarcerated another son is being an intermediary, will continue with current level of management, I believe the patient is going to have a poor functional outcome at best. Clinical update: 1900, additional family is revised and the decision has been made to pursue comfort measures as she is a fiercely independent woman and who would not want to live in the debilitated state she would find herself in. We will focus on comfort and discontinue antibiotics and hypertonic saline and mannitol. Subjective Patient evaluated at the bedside this morning. Patient sleeping during exam. Difficult to arouse, but breathing comfortably on High Flow oxygen 30/40. Review of Systems Review of Systems: Unobtainable due to reduced consciousness Physical Exam Constitutional: no acute distress Respiratory: normal respiratory effort, lungs clear to auscultation + labored breathing Cardiovascular: Rate/Rhythm: regular rate and regular rhythm Gastrointestinal (Abdomen): normal bowel sounds, soft, nontender, no hepatosplenomegaly Musculoskeletal: Unable to assess Neurologic: Unable to assess Results & Data Results & Data ([facility]) Vital Signs (Past 12 Hours) Vital Signs Temp Pulse Pulse Resp BP BP Pulse Ox 01/01/20 05:23 81 16 95 01/01/20 03:27 74 16 93 01/01/20 03:00 101 H 20 96 01/01/20 02:25 37.4 C 71 14 177/96 H 97 01/01/20 02:00 81 17 95 01/01/20 01:26 69 14 191/93 H 96 01/01/20 01:00 37.2 C 71 71 15 148/82 H 95 01/01/20 00:00 37.2 C 81 16 148/82 H 93 12/31/19 23:10 69 16 95 12/31/19 23:00 37.2 C 85 24 161/102 H 94 12/31/19 22:00 37.4 C 80 17 167/106 H 95 12/31/19 21:00 68 13 96 12/31/19 20:55 72 14 163/102 H 96 12/31/19 20:45 68 9 L 181/99 H 96 12/31/19 20:35 74 14 195/105 H 96 12/31/19 20:25 73 14 186/110 H 96 12/31/19 20:21 12/31/19 20:15 73 18 180/97 H 96 12/31/19 20:05 71 16 181/116 H 96 12/31/19 20:00 73 13 96 12/31/19 19:57 72 16 95 12/31/19 19:55 90 20 187/105 H 97 12/31/19 19:45 73 16 186/126 H 97 12/31/19 19:35 76 14 184/109 H 97 12/31/19 19:24 37.5 C 72 13 180/121 H 97 12/31/19 19:15 74 14 189/105 H 97 12/31/19 19:05 94 H 16 160/114 H 96 12/31/19 19:00 83 15 97 12/31/19 18:16 85 18 96 12/31/19 18:14 77 15 160/99 H 96 12/31/19 18:04 91 H 31 H 152/105 H 92 12/31/19 18:00 80 31 H 91 Pulse Ox 01/01/20 05:23 01/01/20 03:27 01/01/20 03:00 01/01/20 02:25 01/01/20 02:00 01/01/20 01:26 01/01/20 01:00 01/01/20 00:00 12/31/19 23:10 12/31/19 23:00 12/31/19 22:00 12/31/19 21:00 12/31/19 20:55 12/31/19 20:45 12/31/19 20:35 12/31/19 20:25 12/31/19 20:21 96 12/31/19 20:15 12/31/19 20:05 12/31/19 20:00 12/31/19 19:57 12/31/19 19:55 12/31/19 19:45 12/31/19 19:35 12/31/19 19:24 12/31/19 19:15 12/31/19 19:05 12/31/19 19:00 12/31/19 18:16 12/31/19 18:14 12/31/19 18:04 12/31/19 18:00 Critical Care Time Critical Care Time: Yes Total Critical Care Time: 55 Resident Activity Tracking Resident Involvement: Resident Care Provided Care Provided: Adult Hospital Medicine (1) HTN (hypertension) Hypertension type: unspecified Qualified Code(s): I10 - Essential (primary) hypertension
[2020-01-01 06:18] LABS: Eosinophils # (auto) 0.05 K/uL (0-0.5); Eosinophils % (auto) 0.4 %; Hematocrit (blood only) 45.2 % (37-47); Hemoglobin 14.2 g/dL (12.0-16.0); Immature Granulocytes # (auto) 0.04 K/uL (0.00-0.02); Immature Granulocytes % (auto) 0.3 %; Lymphocytes # (auto) 1.19 K/uL (1.2-3.4); Lymphocytes % (auto) 10.1 %; Mean Corpuscular Hemoglobin 30.5 pg (25-34); Mean Corpuscular Hgb Conc 31.4 g/dL (32-36); Mean Platelet Volume 9.1 fL (7.4-10.4); Monocytes # (auto) 0.91 K/uL (0.11-0.59); Monocytes % (auto) 7.7 %; Neutrophils # (auto) 9.62 K/uL (1.4-6.5); Neutrophils % (auto) 81.5 %; Platelet Count 258 K/uL (130-400); RDW Coefficient of Variation 14.6 % (11.5-14.5); RDW Standard Deviation 51.7 fL (36.4-46.3); Red Blood Count 4.66 M/uL (4.2-5.4); White Blood Count 11.81 K/uL (4.8-10.8)
[2020-01-01] MEDS: SODIUM CHLORIDE 3 % 500 ML IV SCH ×2 (06:24→11:02)
[2020-01-01 06:50] LABS: BUN Creatinine Ratio 23.6 (10-20); Calcium 8.7 mg/dl (8.5-10.1); Creatinine Clr Calc Pharmacy 87.5 ml/min; Est GFR (African American) 100.6; Est GFR (Non-African American) 86.8
[2020-01-01] MEDS: INSULIN ASPART 100 UNITS/ML 3 ML PEN SC SCH ×3 (06:54→18:15)
[2020-01-01] MEDS: UMECLIDINIUM/VILANTEROL 62.5/25MCG 7 PUFFS/INHALER INH SCH (07:33)
[2020-01-01] MEDS: FLUTICASONE FUROATE 100MCG 14 PUFFS/INHALER INH SCH (07:33)
[2020-01-01 07:35] LABS: Potassium 5.1 mmol/L (3.5-5.1)
[2020-01-01] MEDS: LABETALOL HCL IV 5 MG/ML 20ML IV PRN (07:47)
[2020-01-01] MEDS: MANNITOL IV SCH ×2 (08:03→15:58)
--- NOTE | 2020-01-01 09:01 | Neurology Progress Note ---
Date of Service January 01, 2020 Assessment & Plan (1) Acute CVA (cerebrovascular accident): (2) Right internal carotid occlusion: (3) HTN (hypertension): (4) DM II (diabetes mellitus, type II), controlled: (5) Hyperlipidemia: this patient had a severe ( essentially complete) right middle cerebral artery stroke with edema and some midline shift , likely sometime early December 29. Her mental status is worse this morning that was yesterday and this is likely due to the cerebral edema as well as other factors such as her cardiopulmonary disease. However, she still can follow a few 1 step commands today. She has a significant motor aphasia and dysarthria, but no evidence of receptive aphasia. she could not say any words this morning. She has a preferred right gaze this morning.She has a probable left homonymous hemianopsia, severe weakness left face and arm greater than leg, motor aphasia and dysarthria, and uncertain frank sensory deficit on the left ( very difficult with her mental status ). The etiology of this stroke is an occlusion of the right internal carotid artery with extension all the way up to the right middle cerebral artery. Etiology of this is probably dissection as it appears on CT angiography ( as reported by Dr. Kowalski). The patient has no cardiac history and no other atherosclerosis scattered about on CT angiography that can be seen. Patient has multiple risk factors for ischemic stroke including hypertension, diabetes, dyslipidemia, and cigarette smoking. Overall her prognosis is somewhat poor/guarded. She is currently a DNR The cerebral edema is going to hinder her improvement but typically will maximize day 3-5. she is getting mannitol currently. Recommendations: 1. Avoid anticoagulation in lieu of the size of the stroke. We may consider antiplatelet medication in future, but the patient cannot take p.o. currently. 2. continue mannitol per protocol. I will follow. Overall, I spent a total of 40 minutes with this case including review of records, direct evaluation the patient at bedside, and discussion of the case with nursing at bedside, and Dr. Velaqzuez including differential diagnosis and treatment options. Admission and Anticipated Discharge Date Admission Date: December 30, 2019 Subjective X this patient has been transferred to the ICU for better monitoring. She has been less responsive according to the nursing staff compared to when she was 1st transferred. She is breathing on her own but this is very irregular at times. She is spontaneously moving her right side at times and the nurse got her to follow a command or two from time to time. Blood pressure is 186/97 and she is afebrile at 37.3. She is getting high-flow nasal cannula at 40 liters/minute with an FiO2 of 50 and O2 saturation of 94 percent. CBC was remarkable for an elevated white count as before. Echocardiogram revealed normal left ventricular size with a low-normal systolic function. Results & Data ([facility]) Vital Signs (Past 12 Hours) Vital Signs Temp Pulse Pulse Resp BP BP Pulse Ox 01/01/20 08:00 37.3 C 75 11 L 94 01/01/20 07:58 69 15 186/97 H 93 01/01/20 07:35 91 H 20 93 01/01/20 07:30 71 24 92 01/01/20 07:25 93 H 25 H 197/113 H 92 01/01/20 07:00 37.3 C 66 22 92 01/01/20 06:45 67 14 93 01/01/20 06:00 67 19 93 01/01/20 05:25 37.4 C 68 14 188/98 H 95 01/01/20 05:23 81 16 95 01/01/20 05:00 69 14 95 01/01/20 04:25 90 22 191/103 H 91 01/01/20 04:00 77 20 92 01/01/20 03:27 74 16 93 01/01/20 03:00 101 H 20 96 01/01/20 02:25 37.4 C 71 14 177/96 H 97 01/01/20 02:00 81 17 95 01/01/20 01:26 69 14 191/93 H 96 01/01/20 01:00 37.2 C 71 71 15 148/82 H 95 01/01/20 00:00 37.2 C 81 16 148/82 H 93 12/31/19 23:10 69 16 95 12/31/19 23:00 37.2 C 85 24 161/102 H 94 12/31/19 22:00 37.4 C 80 17 167/106 H 95 12/31/19 21:00 68 13 96 Exam (Neuro) Physical Exam: she is sleeping and having deep respiratory breaths at a slow but regular pace when I observe her. She would wiggle her fingers and toes on the right to command but would not say words or open her eyes. She could open her mouth some. Eyes open passively and she has a preferred right gaze. Pupils are 2 millimeters bilaterally reactive to light. She does not positive oculocephalics with head turning. Tongue is midline. Neck is supple. She has minimal to no corneal response on the normal. She has a mild gag on the right but not the left. The left arm and leg have decreased tone and no spontaneous or voluntary movement. The right upper extremity is 4/5, and she can wiggle toes on the right but not move her right leg voluntarily. Reflexes are 1/4 in the biceps triceps and brachioradialis tendons bilaterally and absent in the quadriceps and Achilles tendons bilaterally. Toes are downgoing with plantar stimulation on the right and upgoing on the left. PG Care Time/CCT Total # of Minutes Spent Total Time Spent with Patient: Total time spent is greater than 50% in coordination of care (as documented) at patient's floor/unit and/or counseling patient: Coding Level of Care Code 78706 Subseq Hosp Care Lvl 3 Diagnoses Acute CVA (cerebrovascular accident) I63.9 Right internal carotid occlusion I65.21 HTN (hypertension) I10 Hypertension type: unspecified DM II (diabetes mellitus, type II), controlled E11.9 Hyperlipidemia E78.5 (1) HTN (hypertension) Hypertension type: unspecified Qualified Code(s): I10 - Essential (primary) hypertension
--- NOTE | 2020-01-01 09:11 | Billing Data ---
Date of Service January 01, 2020 Coding Level of Care Code Critical Care mins
[2020-01-01] MEDS: METOPROLOL TARTRATE 1 MG/ML VIAL IV PRN ×3 (11:34→12:09)
[2020-01-01] MEDS ORDERED: METOPROLOL TARTRATE 1 MG/ML VIAL IV STA ×2 (15:15→17:17)
[2020-01-01] MEDS ORDERED: ATROPINE SULFATE 1% OP SOLN 2 ML BTL SL PRN (18:03)
[2020-01-01] MEDS ORDERED: MoRPHine SULFATE 2 MG/ML CARP IV PRN (18:03)
[2020-01-01] MEDS ORDERED: ONDANSETRON INJ 2 MG/ML 2 ML VIAL IV PRN (18:03)
--- NOTE | 2020-01-01 21:37 | Hospitalist Progress Note ---
Date of Service January 01, 2020 Assessment & Plan (1) Stroke: The patient is a 74-year-old female [facility] of hypertension, hyperlipidemia, Type 2 diabetes, COPD, asthma, lumbar stenosis with claudication, peripheral artery disease, lichen planus who presented by ambulance due to facial droop, slurred speech, and left sided weakness. Imaging was positive for acute ischemic stroke. Ischemic stroke - Head CT & Head CTA positive for extensive acute infarct involving the entire right middle cerebral artery territory with mass effect including sulcal effacement, compression of the right lateral ventricle and mild leftward midline shift - Neck CTA: Occlusion of the proximal right internal carotid artery. The configuration raises the possibility of a dissection. An embolus with thrombosis could potentially appear similar. - Patient not an interventional/TPA candidate as last known time she was well was 11:30PM last night - Bhavna tele-stroke neurology recommended holding anticoagulation - Neuro consulted - Large stroke, showing edema, Now on Mannitol. - Had extensive discussion with Neuro, Sed Special Education Teacher and son on phone separately. - Patient has a poor prognosis. - ICU team will have discussion with son later today. Hyperlipidemia - Not on statin at home - Patient is NPO--consider starting statin when able to tolerate oral medications Hypertension - Hold home losartan for permissive hypertension Diabetes mellitus, type 2 - Hold home losartan for permissive hypertension - Insulin: Basal Lantus 17 units SC BID; Bolus correction factor 25, ratio 1:8 COPD - Duonebs PRN Low back pain w/ radiculopathy - Was started on prednisone course on 12/26 by PCP--possible cause for leukocytosis with neutrophilia - Held prednisone--short term treatment, no need for taper DVT prophylaxis: SCDs (2) Hyperlipidemia: (3) Hypertension: (4) DM II (diabetes mellitus, type II), controlled: (5) COPD (chronic obstructive pulmonary disease): (6) Lumbar back pain with radiculopathy affecting lower extremity: Admission and Anticipated Discharge Date Admission Date: December 30, 2019 Subjective Patient does not respond. Review of Systems Review of Systems: Unobtainable due to cognitive status Physical Exam Physical Exam: Constitutional: + obese and + altered mental status Eyes: PERRL, conjunctivae normal, anicteric sclerae ENMT: external ear and nose normal, oropharynx normal Neck: trachea midline, no thyromegaly Respiratory: normal respiratory effort, lungs clear to auscultation Auscultation: no crackles, no rales, no rhonchi and no wheezes Cardiovascular: RRR, no murmur, no edema Heart Sounds: normal S1 and normal S2; no gallop, no murmur and no cardiac rub Gastrointestinal (Abdomen): Inspection/Auscultation: normal bowel sounds Percussion/Palpation: abdomen soft; abdomen nontender and no guarding Neurologic: Lethargic, drowsy. Facial droop on left side. No weakness of either extremity on right side. Unable to move LUE & LLE. Results & Data Results & Data ([facility]) Vital Signs (Past 12 Hours) Vital Signs Temp Pulse Pulse Resp BP Pulse Ox 01/01/20 16:30 37.8 C H 73 17 93 01/01/20 16:25 37.8 C H 75 16 209/106 H 93 01/01/20 16:00 37.7 C H 70 17 93 01/01/20 15:30 37.7 C H 72 17 93 01/01/20 15:25 37.7 C H 77 17 208/107 H 94 01/01/20 15:20 81 200/105 H 01/01/20 15:00 37.7 C H 80 17 93 01/01/20 14:30 37.7 C H 26 H 93 01/01/20 14:25 37.7 C H 77 18 200/105 H 93 01/01/20 14:01 37.6 C H 70 18 91 01/01/20 13:59 37.6 C H 80 19 192/107 H 91 01/01/20 13:50 37.6 C H 75 18 86 L 01/01/20 13:40 37.6 C H 69 17 86 L 01/01/20 13:30 37.6 C H 71 35 H 87 L 01/01/20 13:25 37.6 C H 73 18 193/94 H 87 L 01/01/20 13:20 37.7 C H 85 21 88 L 01/01/20 13:10 37.6 C H 74 22 90 01/01/20 13:00 37.6 C H 72 18 90 01/01/20 12:50 37.7 C H 71 16 92 01/01/20 12:42 37.7 C H 68 21 170/110 H 92 01/01/20 12:40 37.7 C H 67 19 92 01/01/20 12:34 37.7 C H 69 27 H 187/104 H 92 01/01/20 12:30 37.7 C H 72 19 92 01/01/20 12:25 72 19 187/104 H 93 01/01/20 12:20 77 20 93 01/01/20 12:10 70 31 H 93 01/01/20 12:09 68 194/108 H 01/01/20 12:08 70 22 92 01/01/20 12:01 69 27 H 92 01/01/20 12:00 76 24 194/108 H 91 01/01/20 11:50 72 32 H 87 L 01/01/20 11:46 75 189/123 H 01/01/20 11:40 72 32 H 89 L 01/01/20 11:39 72 35 H 189/123 H 91 01/01/20 11:34 77 202/100 H 01/01/20 11:30 78 30 H 91 01/01/20 11:25 78 31 H 202/100 H 91 01/01/20 11:20 76 24 92 01/01/20 11:10 85 16 95 01/01/20 11:00 37.8 C H 82 16 93 01/01/20 10:25 37.8 C H 79 15 195/101 H 92 01/01/20 10:19 37.8 C H 80 15 198/110 H 92 01/01/20 10:00 37.8 C H 74 17 92 PG Care Time/CCT Total # of Minutes Spent Total Time Spent with Patient: Total time spent is greater than 50% in coordination of care (as documented) at patient's floor/unit and/or counseling patient: Coding Level of Care Code 62271 Subseq Hosp Care Lvl 2 Diagnoses Stroke I63.9 Hyperlipidemia E78.5 Hypertension I10 DM II (diabetes mellitus, type II), controlled E11.9 COPD (chronic obstructive pulmonary disease) J44.1 COPD type: COPD with acute exacerbation Lumbar back pain with radiculopathy affecting lower extremity M54.16 (1) COPD (chronic obstructive pulmonary disease) COPD type: COPD with acute exacerbation Qualified Code(s): J44.1 - Chronic obstructive pulmonary disease with (acute) exacerbation
--- NOTE | 2020-01-02 05:24 | Death Pronouncement Note ---
Date of Service January 02, 2020 Pronouncement Note Admission Date Admission Date: December 30, 2019 Date and Time of Date of : 01/02/20 Time of : 04:43 PCOD Preliminary cause of : Ischemic stroke diagnosed during current admission Contributing Factors (1) Stroke: (2) Hyperlipidemia: (3) Hypertension: (4) DM II (diabetes mellitus, type II), controlled: (5) COPD (chronic obstructive pulmonary disease): (6) Lumbar back pain with radiculopathy affecting lower extremity: Hospital Course Hospital Course: 74-year-old female admitted for acute CVA but was not in window for TPA on arrival to the hospital. She was found to have large MCA territory infarct and developed mass-effect with cerebral edema with compression of the right lateral ventricle and midline shift. Patient exhibited a poor prognosis and was being medically managed with hypertonic solution and mannitol here in the ICU. Yesterday afternoon the patient was made comfort care. Summary Additional details: I was contacted by nursing staff regarding the patients declining status and concerns for imminent demise. I presented to the patients room for evaluation. Upon assessment, the patient was found to be in a terminal state. Pupils were fixed and dilated without response. No palpable pulses appreciated. No spontaneous breaths noted. Heart sounds were absent. No response to painful stimuli. Time of : 0443 as pronounced by myself. No family was actively present at bedside. Patient's son was contacted by the RN and family plans to come into the hospital to the bedside. Patients primary service was contacted and made aware of patient demise. Pronouncement section of the Certificate was filled out and signed by myself. Cause of : Primary -ischemic stroke Secondary -cerebral edema Please feel free to contact me with any questions regarding the above-mentioned course. Additional Data Attending physician: Chadwick Velazquez Coding Level of Care Code None Diagnoses Stroke I63.9 Hyperlipidemia E78.5 Hypertension I10 DM II (diabetes mellitus, type II), controlled E11.9 COPD (chronic obstructive pulmonary disease) J44.1 COPD type: COPD with acute exacerbation Lumbar back pain with radiculopathy affecting lower extremity M54.16
--- NOTE | 2020-01-09 07:49 | Discharge Summary ---
Date of Service January 02, 2020 Admission HPI Per Admitting Provider The patient is a 74-year-old female [facility] of hypertension, hyperlipidemia, Type 2 diabetes, COPD, asthma, lumbar stenosis with claudication, peripheral artery disease, lichen planus who presented by ambulance due to facial droop, slurred speech, and left sided weakness. Her son reports that he was at home with her last night and last saw her around 11:30PM. Upon awakening, he realized his mother was not up and about the house as she usually is so he went to check on her in her bedroom. He found her laying on her bed sideways and upon awakening her, he says she was able to speak to him but she was slurring her words. He asked whether she needed help and she responded that she just needed something to drink and she'd be fine. At this point, due to the slurred speech, her son decided to call the ambulance. Head CT & Head CTA are positive for extensive acute infarct involving the entire right middle cerebral artery territory with mass effect including sulcal effacement, compression of the right lateral ventricle and mild leftward midline shift. Neck CTA showed occlusion of the proximal right internal carotid artery. The configuration raises the possibility of a dissection. An embolus with thrombosis could potentially appear similar. ED provider spoke to [facility] tele-stroke neurology. Patient was not an interventional/TPA candidate as she was last known to be well at 11:30PM last night. They recommended holding anticoagulation at this time. Labs with leukocytosis of 13.97 with neutrophilia (on prednisone as of 12/26 due to LBP w/ radiculopathy per PCP), elevated hemoglobin at 16.5, slight hyponatremia, hyperglycemia, hypomagnesemia. Troponin negative. On evaluation at bedside, the patient is minimally responsive to my voice--tries to open eyes and sometimes nods or shakes head, otherwise very limited response. Further information is difficult to ascertain as patient is unable to speak clearly and is very lethargic. She has blood on her left lower lip--unclear whether she fell, son cannot clarify further. Patient nods when asked if she has a headache and nausea. Denies chest pain, shortness of breath, abdominal pain. ROS otherwise limited due to minimal response. Principal Diagnosis Stroke Discharge Exam prior to examination Discharge Data Allergies Allergy/AdvReac Type Severity Reaction Status Date / Time adhesive Allergy Unknown ITCHY Verified 12/27/19 09:53 Penicillins Allergy Unknown HIVES IN Verified 12/27/19 09:53 MOUTH tramadol Allergy Unknown RASH MOUTH, Verified 12/27/19 09:53 oxycodone AdvReac Unknown NAUSEA,ANGRY Verified 12/27/19 09:53 REACTION Consultations 12/30/19 17:16 ED Decision to Admit Stat 12/30/19 20:21 Consult Neurology Routine 12/31/19 12:08 Consult Silk Brusher Routine 12/31/19 16:31 Consult Palliative Care Routine 01/01/20 18:05 Consult Case Management - Discharge Planning Routine Consult Palliative Care Routine Ordered Studies 12/30/19 15:17 CT angio head w con Stat CT angio neck with con Stat CT head/brain wo con Stat 12/31/19 07:00 CT head/brain wo con Routine Hospital Course (1) Stroke: The patient is a 74-year-old female wuith H of hypertension, hyperlipidemia, Type 2 diabetes, COPD, asthma, lumbar stenosis with claudication, peripheral artery disease, lichen planus who presented by ambulance due to facial droop, slurred speech, and left sided weakness. Imaging was positive for acute ischemic stroke. Ischemic stroke - Head CT & Head CTA positive for extensive acute infarct involving the entire right middle cerebral artery territory with mass effect including sulcal effacement, compression of the right lateral ventricle and mild leftward midline shift - Neck CTA: Occlusion of the proximal right internal carotid artery. The configuration raises the possibility of a dissection. An embolus with thrombosis could potentially appear similar. - Patient not an interventional/TPA candidate as last known time she was well was 11:30PM last night - [place] tele-stroke neurology recommended holding anticoagulation - Neuro consulted - Large stroke, showing edema, Now on Mannitol. - Had extensive discussion with Neuro, Silk Brusher and son on phone separately. - Patient has a poor prognosis. - Patient switch to DNR/DNI -Patient over night. Hyperlipidemia - Not on statin at home - Patient is NPO--consider starting statin when able to tolerate oral medications Hypertension - Hold home losartan for permissive hypertension Diabetes mellitus, type 2 - Hold home losartan for permissive hypertension - Insulin: Basal Lantus 17 units SC BID; Bolus correction factor 25, ratio 1:8 COPD - Duonebs PRN Low back pain w/ radiculopathy - Was started on prednisone course on 12/26 by PCP--possible cause for leukocytosis with neutrophilia - Held prednisone--short term treatment, no need for taper DVT prophylaxis: SCDs (2) Hyperlipidemia: (3) Hypertension: (4) DM II (diabetes mellitus, type II), controlled: (5) COPD (chronic obstructive pulmonary disease): (6) Lumbar back pain with radiculopathy affecting lower extremity: Total Time Total Time Spent Total Time Spent (In Minutes): 5 Discharge Plan Discharge Items Patient Disposition: Coding Level of Care Code None Diagnoses Stroke I63.9 Hyperlipidemia E78.5 Hypertension I10 DM II (diabetes mellitus, type II), controlled E11.9 COPD (chronic obstructive pulmonary disease) J44.1 COPD type: COPD with acute exacerbation Lumbar back pain with radiculopathy affecting lower extremity M54.16
== END 2020-01-02 09:23 | disposition expired | DRG 64 ==
LOC: ED 15:02 → SUATTDRO 18:31 → 2S 18:31 → 1E 12-31 13:22